=== PATIENT | female | born 1935 | race Caucasian/White ===

== ENCOUNTER 2016-12-24 06:17 | Inpatient (IN) ==
--- NOTE | 2016-12-23 21:38 | Discharge Summary ---
<Ludy Saul - Last Filed: 12/23/16 21:33> Date of Encounter: 12/23/16 - Discharge Diagnosis (1) Rotator cuff arthropathy Priority: Primary Status: Acute Qualifiers: Laterality: left Qualified Code(s): M12.812 - Other specific arthropathies , not elsewhere classified, left shoulder (2) CHF (congestive heart failure) Priority: Secondary Status: Chronic Qualifiers: Congestive heart failure type: unspecified congestive heart failure type Congestive heart failure chronicity: unspecified congestive heart failure chronicity Qualified Code(s): I50.9 - Heart failure, unspecified (3) Anxiety Priority: Secondary Status: Chronic (4) COPD (chronic obstructive pulmonary disease) Priority: Secondary Status: Chronic Qualifiers: COPD type: unspecified COPD Qualified Code(s): J44.9 - Chronic obstructive pulmonary disease, unspecified (5) UTI (urinary tract infection) Priority: Secondary Status: Chronic Qualifiers: Urinary tract infection type: site unspecified Hematuria presence: without hematuria Qualified Code(s): N39.0 - Urinary tract infection, site not specified (6) Chronic hyponatremia Priority: Secondary Status: Chronic (7) Chronic atrial fibrillation Priority: Secondary Status: Chronic (8) Chronic hepatitis Priority: Secondary Status: Chronic (9) KATHE (obstructive sleep apnea) Priority: Secondary Status: Chronic Comments: Wears O2 at night. (10) Chronic pain Priority: Secondary Status: Chronic Comments: Will continue [place] 10/325 Q 6 hours #120 - LD 11/29/16 Qualifiers: Chronic pain type: other chronic pain Qualified Code(s): G89.29 - Other chronic pain - Discharge Medications Home Medications: Aspirin [Adult Low Dose Aspirin EC] 81 mg PO DAILY 07/30/15 [History] Cholecalciferol (Vitamin D3) [Vitamin D3] 2,000 unit PO DAILY 07/30/15 [History] Diazepam [Valium] 2 mg PO HS 07/30/15 [History] Metoprolol [Lopressor] 50 mg PO BID 07/30/15 [History] Omeprazole [PriLOSEC] 20 mg PO BID 07/30/15 [History] Oxybutynin Chloride [Ditropan Xl] 10 mg PO DAILY 07/30/15 [History] Potassium Chloride [Klor-Con Sprinkle] 10 meq PO BID 07/30/15 [History] Warfarin [Coumadin] 4 mg PO Q48H 07/30/15 [History] Docosahexanoic Acid/Epa [Fish Oil Concentrate Softgel] 1 each PO DAILY 08/31/15 [History] Docusate Sodium [Stool Softener] 100 mg PO DAILY 08/31/15 [History] HYDROcodone/Acet 10/325 mg [[place] 10-325 mg] 1 each PO Q6H PRN 08/31/15 [History ] Losartan/Hydrochlorothiazide [Hyzaar 100-12.5 Tablet] 1 each PO DAILY 08/31/15 [ History] Milk Thistle Seed Extract [Milk Thistle] 1,000 mg PO DAILY 08/31/15 [History] Multivitamin [Multivitamins] 1 each PO DAILY 08/31/15 [History] Psyllium Husk [Fiber] 0.52 gm PO BID 08/31/15 [History] Albuterol Sulfate [Albuterol Inhaler] 2 puff IH Q4HR PRN 10/25/16 [History] Oxygen 2 l NS AD 10/25/16 [History] Lidocaine Patch [Lidoderm 5% patch] 1 each TP DAILY #30 adh..patch 12/23/16 [Rx] Furosemide [Lasix] 20 mg PO DAILY 12/24/16 [History] Lactobacillus Acidophilus [Acidophilus Probiotic] 1 mg PO DAILY 12/24/16 [ History] Warfarin [Coumadin] 3.5 mg PO Q48H 12/24/16 [History] Allergies/Adverse Reactions: Allergies Barbiturates Allergy (Verified 10/25/16 07:32) Rash Primary care physician: Yahir Self MD - Patient Status Disposition: Home, Self-Care Condition: Good - Discharge Instructions Follow Up With: Yahir Self MD [Primary Care Provider] - - Hospital Course Hospital course: Ms. Serra is a 81 year old female - Time Spent with Patient Total time spent providing and/or coordinating discharge services: <Juanito Mayen - Last Filed: 12/25/16 06:38> Date of Encounter: 12/25/16 Time of Encounter: 06:37 - Discharge Diagnosis (1) Rotator cuff arthropathy Priority: Primary Status: Acute Qualifiers: Laterality: left Qualified Code(s): M12.812 - Other specific arthropathies , not elsewhere classified, left shoulder (2) CHF (congestive heart failure) Priority: Secondary Status: Chronic Comments: Unknown type Qualifiers: Congestive heart failure type: unspecified congestive heart failure type Congestive heart failure chronicity: unspecified congestive heart failure chronicity Qualified Code(s): I50.9 - Heart failure, unspecified (3) Anxiety Priority: Secondary Status: Chronic (4) COPD (chronic obstructive pulmonary disease) Priority: Secondary Status: Chronic Qualifiers: COPD type: unspecified COPD Qualified Code(s): J44.9 - Chronic obstructive pulmonary disease, unspecified (5) UTI (urinary tract infection) Priority: Secondary Status: Chronic Qualifiers: Urinary tract infection type: site unspecified Hematuria presence: without hematuria Qualified Code(s): N39.0 - Urinary tract infection, site not specified (6) Chronic hyponatremia Priority: Secondary Status: Chronic (7) Chronic atrial fibrillation Priority: Secondary Status: Chronic (8) Chronic hepatitis Priority: Secondary Status: Chronic (9) KATHE (obstructive sleep apnea) Priority: Secondary Status: Chronic (10) Chronic pain Priority: Secondary Status: Chronic Qualifiers: Chronic pain type: other chronic pain Qualified Code(s): G89.29 - Other chronic pain Primary care physician: Yahir Self MD - Patient Status Overall status at discharge: patient is progressing back to baseline - Hospital Course Hospital course: Ms. Serra is a 81 year old female The patient had an uneventful postoperative course. They received antibiotics and physical therapy and were discharged in stable condition. There will follow -up in the office in 2 weeks. - Time Spent with Patient Total time spent providing and/or coordinating discharge services:
[2016-12-24] MEDS ORDERED: CeFAZolin Pre 2,000 MG/100 ML 2,000 MG/100 ML BAG IVPB ONE (06:33)
[2016-12-24] MEDS ORDERED: Famotidine 20 MG/2 ML VIAL IVP ONE (06:34)
--- NOTE | 2016-12-24 06:34 | History & Physical Report ---
Date of Encounter: 12/24/16 Time of Encounter: 06:34 24 Hour HP Update - Instructions Instructions: If the History and Physical is less than 30 days old and was completed prior to A.M. admission and or procedure and has NOT been updated on calendar day of procedure please complete this update prior to performing procedure. - Update Patient reports changes in Medical Condition: No Changes in examination, assessment, or condition: No Changes in Medication: No Preop tests/diagnostics Reviewed: Yes Surgery Remains Indicated: Yes Consent for Planned Operative Procedure(s) Verified: Yes - Pre-Operative Checklist Preoperative Checklist Indicated: No Prophylactic Antibiotic Ordered: Yes Is VTE Prophylaxis Indicated?: Yes
[2016-12-24] MEDS ORDERED: Ringers Solution, Lactated 1,000 ML IVC SCH (06:45)
[2016-12-24] MEDS ORDERED: Dexamethasone 4 MG/ML VIAL ONE ×2 (07:09→07:19)
[2016-12-24] MEDS ORDERED: *HR* Propofol 200 MG/20 ML VIAL IVP ONE (07:09)
[2016-12-24] MEDS ORDERED: *HR* Midazolam HCl 2 MG/2 ML VIAL ONE (07:09)
[2016-12-24] MEDS ORDERED: *HR* FentaNYL (PF) 100 MCG/2 ML VIAL ONE (07:09)
[2016-12-24] MEDS ORDERED: Ondansetron 4 MG/2 ML VIAL ONE (07:09)
[2016-12-24] MEDS ORDERED: Lidocaine -MPF 2% 2 ML VIAL ONE (07:10)
[2016-12-24] MEDS ORDERED: Gabapentin 300 MG CAPSULE PO ONE (07:11)
[2016-12-24] MEDS ORDERED: *HR* Phenylephrine 10 MG/ML VIAL ONE (07:11)
[2016-12-24] MEDS ORDERED: ROPIVACAINE HCL/PF 0.5% 30 ML VIAL ONE (07:17)
[2016-12-24] MEDS ORDERED: Bupivacaine/Clonidine Syringe 1 EACH SYRINGE ONE (07:18)
--- NOTE | 2016-12-24 07:34 | Anesthesia Evaluation PreOp ---
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 History: Denies Any Significant HX Other Medical History: Denies Any Significant HX Anesthesia History: No Prior Anesthetic Complications : No Alcohol Use: unknown Drug use: none Medications and Allergies Aspirin [Adult Low Dose Aspirin EC] 81 mg PO DAILY 07/30/15 [History] Cholecalciferol (Vitamin D3) [Vitamin D3] 2,000 unit PO DAILY 07/30/15 [History] Diazepam [Valium] 2 mg PO HS 07/30/15 [History] Metoprolol [Lopressor] 50 mg PO BID 07/30/15 [History] Omeprazole [PriLOSEC] 20 mg PO BID 07/30/15 [History] Oxybutynin Chloride [Ditropan Xl] 10 mg PO DAILY 07/30/15 [History] Potassium Chloride [Klor-Con Sprinkle] 10 meq PO BID 07/30/15 [History] Warfarin [Coumadin] 4 mg PO Q48H 07/30/15 [History] Docosahexanoic Acid/Epa [Fish Oil Concentrate Softgel] 1 each PO DAILY 08/31/15 [History] Docusate Sodium [Stool Softener] 100 mg PO DAILY 08/31/15 [History] HYDROcodone/Acet 10/325 mg [Home 10-325 mg] 1 each PO Q6H PRN 08/31/15 [History ] Losartan/Hydrochlorothiazide [Hyzaar 100-12.5 Tablet] 1 each PO DAILY 08/31/15 [ History] Milk Thistle Seed Extract [Milk Thistle] 1,000 mg PO DAILY 08/31/15 [History] Multivitamin [Multivitamins] 1 each PO DAILY 08/31/15 [History] Psyllium Husk [Fiber] 0.52 gm PO BID 08/31/15 [History] Warfarin [Coumadin] 3 mg PO Q48H 08/31/15 [History] Albuterol Sulfate [Albuterol Inhaler] 2 puff IH Q4HR PRN 10/25/16 [History] Oxygen 2 l NS AD 10/25/16 [History] Lidocaine Patch [Lidoderm 5% patch] 1 each TP DAILY #30 adh..patch 12/23/16 [Rx] Furosemide [Lasix] 20 mg PO DAILY 12/24/16 [History] Lactobacillus Acidophilus [Acidophilus Probiotic] 1 mg PO DAILY 12/24/16 [ History] Allergies Barbiturates Allergy (Verified 10/25/16 07:32) Rash - Meds/Allergy Pre-op Review Medications Reviewed: Yes Allergies Reviewed: Yes Beta Blockers on Current Med List: Yes (Took Metoprolol today 0430) Anesthesia Results - Labs Laboratory Tests 12/12/16 12/12/16 09:11 09:11 Hgb 13.4 Hct 39.5 Plt Count 181 Sodium 130 L Potassium 3.8 BUN 16 Creatinine 0.85 - Imaging EKG: report reviewed Additional studies: Stress Test Negative EF 66% Anesthesia Exam Height: 5'6 Weight: 170 lbs NPO (# of Hours): MN Pain Scale: 0 - HEENT Pupil (Motor): Pupils equal, EOMI Mallampati: III Teeth: Normal Oral Opening: Less than or equal to 3 - LEARNING CONSULTANT LOC: Oriented LEARNING CONSULTANT Motor: Normal RUE, Normal LUE, Normal RLE, Normal LLE, Normal Face LEARNING CONSULTANT Sensory: Normal: RUE, LUE, RLE, LLE, Face - Cardiac Rhythm: Regular Murmur: None JVD: No Carotid Bruit: No - Pulmonary Breath Sounds: bilateral Clear Respiratory Effort: Symmetrical Anesthesia Assess/Plan ASA Score: 4 (HTN CAD AFib COPD on home oxygen) Modified [place] Scale for Level of Consciousness: Cooperative, oriented, and tranquil Anesthetic Plan: General, Regional Monitoring Plan: Standard Monitors Recovery Plan: PACU (Discussed GA and RA, agrees to proceed)
--- NOTE | 2016-12-24 08:31 | Anesthesia Procedures ---
Date of Encounter: 12/24/16 Time of Encounter: 07:55 Procedures: Anesthesia - Nerve Block Procedure Date: 12/24/16 Time: 07:55 Allergies/Adv Reactions: Allergies Allergy/AdvReac Type Severity Reaction Status Date / Time Barbiturates Allergy Rash Verified 10/25/16 07:32 Pre-op Diagnosis: Left Shoulder Arthritis Surgical Procedure: Left Reverse Shoulder Replacement Checklist: Correct Patient Identifier, Correct procedure, History checked Correct side: Left Blood Thinner: Yes Monitor Applied: EKG, BP, Pulse Oximetry Supplemental Oxygen via Nasal Cannula (L/min): 2 Sedation: Versed (mg): 1 Sedation: Fentanyl (mcg): 25 Indication: Post Op Analgesia Pre-op Neuro Deficits: No Block Type: Supraclavicular, Other (ICB, SCP) Catheter placed: No Sterile Technique: Yes Ultrasound used: Yes Anatomy identified: Yes Visual spread of Local: Yes Neuro Stimulation: No Blood on Needle Aspiration: No Smooth Injection of Local: Yes Pain with Injection of Local: No Prep: Chlorhexadine Needle: 22 x 50 mm Stimuplex Local: 0.25% Bupivicaine w/Clonidine 20 mcg/cc (5mL Each SCP and ICB), Ropivacaine (0.5% 30mL Supra), Other (Decadron 8mg) Volume (cc): 40 Number of Attempts: 1 Complications: None/effective block Vitals: VSS throughout. See nursing documentation. Comments: Verbal order Dr Mayen for post op pain management. Patient tolerated procedure well.
[2016-12-24] MEDS ORDERED: Naloxone 0.4 MG/ML INJ IVP PRN ×2 (08:42→10:38)
[2016-12-24] MEDS ORDERED: *HR* Morphine 2 MG/ML SYRINGE IVP PRN (08:42)
[2016-12-24] MEDS ORDERED: Ondansetron 4 MG/2 ML VIAL IVP PRN ×2 (08:42→10:38)
--- NOTE | 2016-12-24 08:49 | Orthopedic Operative Note ---
Date of procedure: 12/24/16 Pre-op diagnosis: Left shoulder cuff tear arthropathy Post-op diagnosis: same Procedure: Procedure: Left Total Shoulder Replacment Reverse, Estimated blood loss: 100 cc Hardware: Metal and polyethylene replacement: Arthrex small glenoid baseplate, 2 4.5 screws. 1 6.5 screw, 6+4 glenosphere, 7 humeral stem, poly insert 3, 9 metal Exam Under anesthesia: Full motion no instability Procedural Notes: Irreparable tear supraspinatus tendon, grade 3 arthritic changes humeral head glenoid socket. Operative procedure: The patient was brought to the operating room and placed on the operating room table. After general anesthesia was administered the operative shoulder was examined. Findings were noted. The patient was placed in the modified beachchair position. All pressure points were padded appropriately. And the head was stabilized in the neutral position. The operative extremity was prepped and draped in the sterile surgical fashion. The patient received IV antibiotics prior to skin incision. A standard deltopectoral approach was made to the operative shoulder. Incision was made to the skin and subcutaneous tissue,hemo stasis was obtained with Bovie cautery. Using careful blunt dissection the cephalic vein was identified and mobilized medially. The deltopectoral interval was developed and the clavipectoral fascia was incised. The subscap was released off the lesser tuberosity and tagged with #2 FiberWire suture it was irreparable. The humerus was dislocated patient noted to have irreparable tear supraspinatus tendon, and the humeral cut was made along the anatomic neck. Patient noted to have grade 3 arthritic changes humeral head acetabular socket. Anterior and posterior Bankart retractors were placed to expose the glenoid. The glenoid guide was seated and the centering hole was made. It was reamed with the appropriate reamer. The small baseplate was seated and secured with (2) 4.5 screws and one 6.5 screw. The baseplate was irrigated and dried and the 36+4 Glenosphere was seated and secured with the Arnold taper. The Arnold taper was tested and found to be secure the humerus was redislocated and prepared with the diaphyseal reamers, followed by a broaching process up to the appropriate size 7 in the patient's anatomic version. The metaphyseal reamer was then utilized. Trial reduction found the shoulder to be relocatable. Trial components were removed. The appropriate 7 stem was impacted in place in the patient's anatomic version. Trial reduction found the shoulder to be relocatable and stable with the appropriate 6 metal 3 Shira Trial component was removed and the real 6 metal 3 Shira was seated and secured the shoulder was reduced. The shoulder had excellent motion and excellent stability and no evidence of dislocation. The deep tissue was irrigated with pulse irrigation. The deltopectoral interval was closed with a running #1 PDS suture, subcutaneous tissue was irrigated and closed with 0 PDS suture, the skin was closed with Dermabond. The patient was placed in a sterile dressing, abduction brace and extubated. The patient was then transferred to the recovery room in stable condition. Anesthesia: ANGELI Surgeon: Juanito Mayen Family Member Caretaker: Ludy Saul Condition: stable Disposition: PACU
--- NOTE | 2016-12-24 09:35 | Anesthesia Evaluation Post Op ---
Date of Encounter: 12/24/16 Time of Encounter: 09:40 - Vital Signs Vital Signs: Vital Signs/O2 Sat/Glucose, Most Current Temp Pulse Resp BP Pulse Ox 12/24/16 09:33 97.6 F 84 18 130/77 100 12/24/16 09:12 79 18 93/62 98 12/24/16 09:02 97.9 F 81 18 91/59 95 12/24/16 08:01 82 16 127/73 98 12/24/16 06:38 97.8 F 92 18 103/66 96 - Lungs Lungs: Clear Ascult./Percussion - Airway Airway: Non-obstructed - Cardiovascular Regular Rate - Mental Status Mental Status: Alert & Oriented, Answers Appropriately - Pain Pain Scale: 0 - Nausea Vomiting Nausea Vomiting: Not Present - Hydration Hydration: Ice chips - Discharge PostOp Status: Transfer Patient to floor
[2016-12-24 09:39] LABS: Hematocrit 32.2 % (35.3-44.9); Hemoglobin 10.9 g/dL (11.5-15.4)
[2016-12-24] MEDS ORDERED: Temazepam 15 MG CAPSULE PO PRN (10:38)
[2016-12-24] MEDS ORDERED: Aspirin Enteric Coated 81 MG Tablet PO SCH (10:38)
[2016-12-24] MEDS ORDERED: *HR* HYDROmorphone (PF) 1 MG/ML SYRINGE IVP PRN (10:38)
[2016-12-24] MEDS ORDERED: Sennosides 8.6 MG TABLET PO PRN (10:38)
[2016-12-24] MEDS ORDERED: ceFAZolin 2,000 MG in D5% in Water 100 ML IVPB SCH (10:38)
[2016-12-24] MEDS ORDERED: DOCOSAHEXANOIC ACID PO SCH (10:38)
[2016-12-24] MEDS ORDERED: EPA PO SCH (10:38)
[2016-12-24] MEDS ORDERED: Multivit/Ca/Min/Fe/FA 1 TAB TABLET PO SCH (10:38)
[2016-12-24] MEDS ORDERED: Lactobacillus 1 EACH CAP.SPRINK PO SCH (10:38)
[2016-12-24] MEDS ORDERED: NON-FORMULARY MEDICATION 1 EACH EACH (Oxygen [Oxygen] 2 L) NS SCH (10:38)
[2016-12-24] MEDS ORDERED: *HR* OxyCODONE Immed Rel 5 MG TABLET PO PRN ×2 (10:38)
[2016-12-24] MEDS ORDERED: MOM Conc 10 ML UD.LIQ PO PRN (10:38)
[2016-12-24] MEDS ORDERED: NON-FORMULARY MEDICATION 1 EACH EACH (Losartan/Hydrochlorothiazide [Hyzaar 100-12.5 Tablet PO SCH (10:38)
[2016-12-24] MEDS ORDERED: Furosemide 20 MG TABLET PO SCH (10:38)
[2016-12-24] MEDS ORDERED: Cholecalciferol (D-3) 1,000 UNIT TABLET PO SCH (10:38)
[2016-12-24] MEDS ORDERED: MILK THISTLE SEED EXTRACT PO SCH (10:38)
[2016-12-24] MEDS ORDERED: hydroCHLOROthiazide 25 MG TABLET PO SCH (11:05)
[2016-12-24] MEDS: Ringers Solution, Lactated 1,000 ML IVC SCH ×2 (12:40→23:26)
[2016-12-24] MEDS: Psyllium 1 PACKET POWD.PACK PO SCH ×2 (14:34→20:57)
[2016-12-24] MEDS: ceFAZolin 2,000 MG in D5% in Water 100 ML IVPB SCH ×2 (16:01→23:25)
[2016-12-24] MEDS ORDERED: *HR* Warfarin 1 MG TABLET PO SCH (18:00)
[2016-12-24] MEDS ORDERED: *HR* Enoxaparin 30 MG/0.3 ML SYRINGE SQ SCH (18:00)
[2016-12-24] MEDS: *HR* Enoxaparin 30 MG/0.3 ML SYRINGE SQ SCH (18:20)
[2016-12-24] MEDS ORDERED: diazePAM 2 MG TABLET PO SCH (21:00)
[2016-12-25] MEDS: *HR* Enoxaparin 30 MG/0.3 ML SYRINGE SQ SCH (05:20)
[2016-12-25 06:02] LABS: Hematocrit 33.9 % (35.3-44.9); Hemoglobin 11.7 g/dL (11.5-15.4)
--- NOTE | 2016-12-25 06:39 | Orthopedics Progress Note ---
Date of Encounter: 12/25/16 Time of Encounter: 06:38 - Assessment and Plan (1) Rotator cuff arthropathy Current Visit: Yes Status: Acute Qualifiers: Laterality: left Qualified Code(s): M12.812 - Other specific arthropathies , not elsewhere classified, left shoulder (2) CHF (congestive heart failure) Current Visit: Yes Status: Chronic Qualifiers: Congestive heart failure type: unspecified congestive heart failure type Congestive heart failure chronicity: unspecified congestive heart failure chronicity Qualified Code(s): I50.9 - Heart failure, unspecified (3) Anxiety Current Visit: Yes Status: Chronic (4) COPD (chronic obstructive pulmonary disease) Current Visit: Yes Status: Chronic Qualifiers: COPD type: unspecified COPD Qualified Code(s): J44.9 - Chronic obstructive pulmonary disease, unspecified (5) UTI (urinary tract infection) Current Visit: Yes Status: Chronic Qualifiers: Urinary tract infection type: site unspecified Hematuria presence: without hematuria Qualified Code(s): N39.0 - Urinary tract infection, site not specified (6) Chronic hyponatremia Current Visit: Yes Status: Chronic (7) Chronic atrial fibrillation Current Visit: Yes Status: Chronic (8) Chronic hepatitis Current Visit: Yes Status: Chronic (9) KATHE (obstructive sleep apnea) Current Visit: Yes Status: Chronic (10) Chronic pain Current Visit: Yes Status: Chronic Qualifiers: Chronic pain type: other chronic pain Qualified Code(s): G89.29 - Other chronic pain Subjective Interval history: Patient was seen this morning doing well without complaints. Afebrile vital signs stable. Operative extremity: Neurovascularly intact Dressing clean dry and intact Calves nontender Assessment and plan: Continue with postoperative care Hematocrit 33.9 discharged today Objective Vital signs: Vital Signs Temp Pulse Resp BP Pulse Ox 12/25/16 03:00 97.9 F 86 16 123/69 98 12/24/16 23:45 97.1 F L 90 16 136/67 98 12/24/16 21:00 97.1 F L 89 16 119/78 12/24/16 19:24 97.0 F L 12/24/16 18:46 80 16 106/68 96 12/24/16 16:06 85 15 144/87 97 12/24/16 11:59 97.5 F L 80 18 106/71 100 12/24/16 10:48 96.8 F L 81 16 116/74 100 12/24/16 10:24 100 12/24/16 10:18 96.8 F L 81 15 115/77 100 12/24/16 09:50 97.6 F 80 14 115/77 96 12/24/16 09:32 97.6 F 80 18 128/83 100 12/24/16 09:22 84 18 130/77 100 12/24/16 09:12 79 18 93/62 98 12/24/16 09:02 97.9 F 81 18 91/59 95 12/24/16 08:01 82 16 127/73 98 Intake and Output 12/24/16 12/24/16 12/25/16 15:59 23:59 07:59 Intake Total 0 / 0 250 / 250 150 / 150 Output Total 100 / 100 Balance -100 / -100 250 / 250 150 / 150 Intake: IV Fluids 100 / 100 100 / 100 Ancef 2,000 MG In 100 / 100 100 / 100 Dextrose 5% 100 ML @ 200 mls/hr IVPB Q8HR [facility] Rx#: [id number] Oral 0 / 0 150 / 150 50 / 50 Output: Estimated Blood Loss 100 / 100 Other: # Voids 1 1 Weight 53.07 kg - Labs CBC & BMP: 12/25/16 05:19 Labs: Abnormal lab results Hct 33.9 % (35.3-44.9) L 12/25/16 05:19 - VTE Documentation of Mechanical Device: Venous foot pump, device Consult Discharge Plan - Plan Referrals: Yahir Self MD [Primary Care Provider] -
[2016-12-25 06:54] VITALS: BP 143/82
[2016-12-25] MEDS ORDERED: *HR* Warfarin 4 MG TABLET PO SCH (18:00)
== END 2016-12-25 10:00 | disposition home or self-care (01) | DRG 483 ==
LOC: SAMDAY 06:17 → 3NENU 10:28
PROVIDERS: ADMIT Orthopaedic Surgery; ATTEND Orthopaedic Surgery

== ENCOUNTER 2017-09-10 19:49 | Inpatient (IN) ==
[2017-09-11] MEDS ORDERED: Naloxone 0.4 MG/ML INJ IVP PRN (00:29)
[2017-09-11] MEDS ORDERED: Acetaminophen 325 MG TABLET PO PRN (00:29)
[2017-09-11] MEDS ORDERED: 0.9 % Sodium Chloride 1,000 ML IVC SCH (00:30)
--- NOTE | 2017-09-11 00:48 | Internal Med History&Physical ---
Date of Encounter: 09/11/17 Time of Encounter: 00:05 Assessment and Plan (1) Closed sacral fracture Current visit: Yes Status: Acute 1. Per history, non-traumatic. 2. Consult orthopedics. 3. Pain control with oral narcotics for severe pain. 4. Patient will need PT/OT evaluations once cleared by orthopedics to participate. Qualifiers: Encounter type: initial encounter Zone of sacrum fracture: unspecified portion of sacrum Qualified Code(s): S32.10XA - Unspecified fracture of sacrum , initial encounter for closed fracture (2) Atrial fibrillation Current visit: Yes Status: Chronic 1. Continue home meds as appropriate. 2. Hold Coumadin tonight and dose per pharmacy and PT/INR. 3. Will place on telemetry and monitor rhythm and rate. Qualifiers: Atrial fibrillation type: chronic Qualified Code(s): I48.2 - Chronic atrial fibrillation (3) Hypertension Current visit: Yes Status: Chronic 1. Continue home meds as appropriate. 2. Monitor BP and adjust medication as necessary. Qualifiers: Hypertension type: essential hypertension Qualified Code(s): I10 - Essential (primary) hypertension (4) DVT prophylaxis Current visit: Yes Status: Acute 1. Patient on Coumadin -- currently therapeutic. Internal Medicine - H&P: HPI Chief complaint: pelvic/hip pain Admitted From: Hospital to Hospital Transfer Plans for Post Hospital Care: Home History of present illness: Ms. Serra is an 82 year old female who presents in transfer from [facility] ER for intractable pelvic and hip pain. She had imaging earlier today as ordered by her orthopedic physician. Imaging revealed bilateral sacral fracture. She was advised to go the ER for pain control and admission to the hospitalist service. I saw patient upon arrival from [facility]. She is lying in bed comfortably but having significant pain with any movement of her legs. She states she denies any recent trauma or injury. However, she noted sudden onset of pain about 2 weeks ago when she was trying to get out of bed. She did not fall or injure herself. She states the pain was sharp and sudden in onset. Since then , she has been unable to bear weight and ambulate without significant and severe pain. She denies any numbness, but she has complained of weakness due to decreased use of her legs and back pain. She received a call from Dr. Deluna who recommended she go to ER for stabilization of pain and transfer to [facility]. Past Med Surg Social Fam HX - Past Medical History Attestation: Yes The following information was validated with the patient. Source: patient, old records reviewed Medical history: atrial fibrillation, CHF, hepatitis, hypertension Psychiatric history: no psych history - Past Surgical History Surgical History: appendectomy, hysterectomy, pacemaker/AICD, other - Social History Smoking Status: Former smoker Smokeless Tobacco Status: No Alcohol use: unknown Drug use: none Current living situation: Home, With Family Activity Level: Independent ambulation Recent Out of Country Travel Within the Last 8 Weeks: No - Family History Mother Adopted: No Family Member Ethnicity: Non- Living Status: Hx Family Cardiac Disorders: Yes Internal Medicine - H&P: Meds Aspirin [Adult Low Dose Aspirin EC] 81 mg PO DAILY 07/30/15 [History] Cholecalciferol (Vitamin D3) [Vitamin D3] 2,000 unit PO DAILY 07/30/15 [History] Diazepam [Valium] 2 mg PO HS 07/30/15 [History] Metoprolol [Lopressor] 50 mg PO BID 07/30/15 [History] Omeprazole [PriLOSEC] 20 mg PO BID 07/30/15 [History] Oxybutynin Chloride [Ditropan Xl] 10 mg PO DAILY 07/30/15 [History] Potassium Chloride [Klor-Con Sprinkle] 10 meq PO BID 07/30/15 [History] Warfarin [Coumadin] 4 mg PO Q48H 07/30/15 [History] Docosahexanoic Acid/Epa [Fish Oil Concentrate Softgel] 1 each PO DAILY 08/31/15 [History] HYDROcodone/Acet 10/325 mg [[place] 10-325 mg] 1 each PO Q6H PRN 08/31/15 [History ] Losartan/Hydrochlorothiazide [Hyzaar 100-12.5 Tablet] 1 each PO DAILY 08/31/15 [ History] Milk Thistle Seed Extract [Milk Thistle] 1,000 mg PO DAILY 08/31/15 [History] Multivitamin [Multivitamins] 1 each PO DAILY 08/31/15 [History] Psyllium Husk [Fiber] 0.52 gm PO BID 08/31/15 [History] Albuterol Sulfate [Albuterol Inhaler] 2 puff IH Q4HR PRN 10/25/16 [History] Oxygen 2 l NS AD PRN 10/25/16 [History] Lidocaine Patch [Lidoderm 5% patch] 1 each TP DAILY #30 adh..patch 12/23/16 [Rx] Lactobacillus Acidophilus [Acidophilus Probiotic] 1 mg PO DAILY 12/24/16 [ History] Warfarin [Coumadin] 3.2 mg PO Q48H 12/24/16 [History] 3 Allergy/AdvReac Type Severity Reaction Status Date / Time Barbiturates Allergy Rash Verified 09/10/17 19:21 - Constitutional Constitutional: no chills, no fever(s) - EENT Eyes: no blurry vision, no change in vision Ears: no ear pain, no tinnitus Nose, mouth and throat: no nasal congestion, no sinus pressure, no sore throat - Cardiovascular Cardiovascular ROS IM: no chest pain, no dyspnea, no dyspnea on exertion, no edema, no orthopnea, no syncope - Respiratory Respiratory: no cough, no hemoptysis, no chest congestion - Gastrointestinal Gastrointestinal: no abdominal pain, no hematemesis, no hematochezia, no melena , no nausea, no vomiting - Genitourinary Genitourinary: no dysuria, no flank pain, no hematuria - Musculoskeletal Musculoskeletal ROS IM: arthralgias, back pain, limited range of motion Additional comments: severe low back and pelvic pain - Integumentary Integumentary IM: no rash, no jaundice - Neurological Neurological ROS: no disequilibrium, no dizziness, no focal weakness, no frequent falls - Psychiatric Psychiatric: no anxiety, no depression - Endocrine Endocrine IM: no polydipsia, no polyuria - Hematologic/Lymphatic Hematologic/Lymphatic: easy bruising - Allergic/Immunologic Allergic/Immunologic: no wheezing, no GI upset with certain foods - Constitutional Vitals: Temp Pulse Resp BP Pulse Ox 98.1 F 87 18 165/91 97 09/10/17 22:28 09/10/17 22:28 09/10/17 22:28 09/10/17 22:28 09/10/17 22:28 General appearance: Present: cooperative, mild distress, A&O X 3, pleasant - Head Head exam: Present: atraumatic, normal inspection - Expanded Head Exam Head exam expanded: Absent: abrasion, contusion, general tenderness - Eye Eye exam: Present: EOMI, PERRL. Absent: scleral icterus Pupils: Present: normal accommodation - ENT ENT exam: Present: mucous membranes dry, normal exam - Neck Neck exam general surgery: Present: full ROM, supple. Absent: tenderness, nuchal rigidity - Respiratory Respiratory exam: Present: CTAB. Absent: chest wall tenderness, rales, rhonchi , wheezes - Cardiovascular Cardiovascular exam: Present: RRR, +S1, +S2. Absent: diastolic murmur, systolic murmur - GI/Abdominal GI/Abdominal exam: Present: normal bowel sounds, soft. Absent: guarding, hepatomegaly, mass, rebound, tenderness - Extremities Exam Extremities exam: Present: normal capillary refill, warm, radial pulses palpable and symmetrical. Absent: calf tenderness, joint swelling - Back Exam Back exam: Absent: CVA tenderness (L), CVA tenderness (R) - Neurological Exam Neurological exam: Present: alert, CN II-XII intact, oriented X3, no focal deficits Additional comments: normal sensation in feet bilaterally - Psychiatric Psychiatric exam: Present: normal affect, normal mood - Skin Skin exam: Present: dry, warm Internal Med - H&P Results - Labs Labs: I reviewed her labs from [facility] and they include the following: WBC 10.5 Hemoglobin 14.8 Hematocrit 43.0 Platelet Count 228 PT 47.7 INR 4.3 Sodium 130 Potassium 3.6 Chloride 91 Carbon dioxide 27 BUN 12 Creatinine 0.[address] report reviewed confirming bilateral sacral fractures. - VTE Reasons for not Prescribing Prophylaxis: Not indicated-Anticoagulated or INR therapeutic
[2017-09-11] MEDS: *HR* HYDROcodone/Acet 10/325 mg TABLET PO PRN ×3 (01:46→17:23)
[2017-09-11] MEDS: *HR* OxyCODONE Immed Rel 5 MG TABLET PO PRN (05:11)
[2017-09-11 06:18] LABS: Basophils # 0.1 K/mcL (0.0-0.2); Basophils % 0.6 %; Eosinophils # 0.1 K/mcL (0.0-0.6); Eosinophils % 1.6 %; Hematocrit 40.7 % (35.3-44.9); Hemoglobin 13.5 g/dL (11.5-15.4); Immature Granulocytes % 0.5 % (0-4); Lymphocytes # 2.6 K/mcL (0.6-4.6); Lymphocytes % 29.1 %; Mean Corpuscular HGB Conc 33.2 g/dL (31.6-35.5); Mean Corpuscular Hemoglobin 30.5 pg (28.0-33.3); Mean Corpuscular Volume 92.1 fL (83.0-100.0); Mean Platelet Volume 9.4 fL (9.4-12.4); Monocytes # 1.2 K/mcL (0.0-1.3); Monocytes % 13.1 %; Neutrophils # 4.8 K/mcL (1.6-8.9); Platelet Count 178 K/mcL (140-400); Red Blood Count 4.42 M/mcL (3.82-4.97); Red Cell Distribution Width 12.1 % (11.5-14.5); Segmented Neutrophils % 55.1 %
[2017-09-11 06:34] LABS: Alanine Aminotransferase 24 Units/L (7-52); Albumin 3.1 g/dL (3.5-5.7); Albumin/Globulin Ratio 1.2 (1.1-2.2); Alkaline Phosphatase 93 Units/L (34-104); Aspartate Amino Transferase 47 Units/L (13-39); BUN/Creatinine Ratio 24 (6-26); Bilirubin,Total 1.5 mg/dL (0.3-1.0); Blood Urea Nitrogen 13 mg/dL (8-23); Calcium 8.5 mg/dL (8.6-10.3); Carbon Dioxide 30 mEq/L (23-29); Chloride 98 mEq/L (98-107); Globulin 2.6 g/dL (2.4-3.5); Glucose 94 mg/dL (70-105); Magnesium 1.7 mg/dL (1.6-2.6); Osmolality,Calculated 274 (280-300); Potassium 3.4 mEq/L (3.5-5.1); Sodium 132 mEq/L (136-145); Total Protein 5.7 g/dL (6.4-8.9); eGFR For African Americans > 60 (> 60); eGFR For Non-African Americans > 60 (> 60)
[2017-09-11 06:39] LABS: INR 3.6; Prothrombin Time 39.3 Seconds (9.4-12.1)
[2017-09-11] MEDS: Cholecalciferol (D-3) 1,000 UNIT TABLET PO SCH (07:45)
[2017-09-11] MEDS: Lactobacillus 1 EACH CAP.SPRINK PO SCH (07:45)
[2017-09-11] MEDS: Multivit/Ca/Min/Fe/FA 1 TAB TABLET PO SCH (07:45)
[2017-09-11] MEDS: Aspirin Enteric Coated 81 MG Tablet PO SCH (07:45)
[2017-09-11] MEDS: 0.9 % Sodium Chloride 1,000 ML IVC SCH (15:26)
--- NOTE | 2017-09-11 17:50 | Orthopedic Consult Note ---
Date of Encounter: 09/11/17 Time of Encounter: 17:43 Assessment and Plan (1) Muscle strain of right upper arm Current Visit: Yes Status: Acute Qualifiers: Encounter type: initial encounter Qualified Code(s): S46.911A - Strain of unspecified muscle, fascia and tendon at shoulder and upper arm level, right arm , initial encounter (2) Closed sacral fracture Current Visit: Yes Status: Acute Discussed with Dr. Blood. Patient to weight bear as tolerated with walker and as per therapy. PT/OT as tolerated. Pressure relief devices as needed. Will add Lidoderm patch for shoulder (likely deltoid strain) and low back as needed to help with pain control. Will keep outpatient follow up with Dr. Deluna as scheduled. Qualifiers: Encounter type: initial encounter Zone of sacrum fracture: unspecified portion of sacrum Qualified Code(s): S32.10XA - Unspecified fracture of sacrum , initial encounter for closed fracture History of Present Illness Chief complaint: bilateral sacral fractures HPI: Ms. Serra is a 82 year old female presents to [facility] for pain control for bilateral sacral fractures. She states that on 08/28/17 she went to get out of bed and "wrenched" her back. She states then she had ongoing pain since then with continuous worsening. Saw Dr. Deluna on 09/05 - she states that she discussed possible brace or cast. States that yesterday after getting CT scan she got home and had to lower herself onto the floor to prevent fall and stressed her right arm. She states that she was transported here from [facility] last night. She states that she has pain only with ambulating to the lower back and buttocks. Denies radicular type symptoms. On exam patient laying supine in bed. She is eating dinner. Alert and oriented x 3. B/l lower extremities and pelvis are nontender to palpation. No calf tenderness or warmth noted to palpation. Neurovascularly intact. Right arm palpation reveals tenderness to deltoid tendon. No lou tenderness noted. ROM limited secondary to pain. Strength 3/5 with flexion and abduction of the shoulder. Neurovascularly intact. Bareback Rider strength intact. EXAMINATION: CT OF THE LUMBAR SPINE WITHOUT CONTRAST 09/10/2017 TECHNIQUE: CT of the lumbar spine was performed without the administration of intravenous contrast. Multiplanar reformatted images are provided for review. Dose modulation, iterative reconstruction, and/or weight based adjustment of the mA/kV was utilized to reduce the radiation dose to as low as reasonably achievable. COMPARISON: 06/19/2012. HISTORY: Acute on chronic lower back pain. Subsequent evaluation. FINDINGS: BONES/ALIGNMENT: Evaluation is limited due to osteopenia. Postsurgical change from posterior fusion involving L3 through L5. There appears to be spondylolysis of L4 with grade 2 anterolisthesis of L4 on L5. Minimal grade 1 anterolisthesis at L3-L4. Large Schmorl's nodes are again seen at T12-L1 and L2-L3. No evidence of hardware loosening. No significant bony fusion is seen. Bilateral sacral fractures are identified. DEGENERATIVE CHANGES: Evaluation the spinal canal is limited due to modality as well as streak artifact from fusion hardware. There appears to be moderate bilateral neural foraminal narrowing at T12-L1. Mild bilateral neural foraminal narrowing at L1-L2 and L2-L3. Minimal spinal canal stenosis at L3-L4. Severe right and [id number] left neural foraminal narrowing at L4-L5. SOFT TISSUES/RETROPERITONEUM: No paraspinal mass. Patchy opacification is seen within the right lower lobe. CT/CT lumbar spine wo con IMPRESSION: 1. Osteopenia limits evaluation. 2. Bilateral sacral fractures identified. 3. Posterior fusion involving L3 through L5 without hardware complication. 4. 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 5. Mild patchy opacification is seen of the right lower lobe. D/ / Juanito Aguilera MD / Juanito Aguilera MD Interpreting Provider: Juanito Aguilera MD Assessment: Bilateral sacral fractures, Strain of right arm Plan: Discussed with Dr. Blood. Patient to weight bear as tolerated with walker and as per therapy. PT/OT as tolerated. Pressure relief devices as needed. Will add Lidoderm patch for shoulder (likely deltoid strain) and low back as needed to help with pain control. Will keep outpatient follow up with Dr. Deluna as scheduled. Past Med Surg Social Fam HX - Past Medical History Medical history: atrial fibrillation, CHF, hepatitis, hypertension Psychiatric history: no psych history - Past Surgical History Surgical History: appendectomy, hysterectomy, pacemaker/AICD, other - Social History Smoking Status: Former smoker Smokeless Tobacco Status: No Alcohol use: unknown Drug use: none - Family History Mother Adopted: No Family Member Ethnicity: Non- Living Status: Hx Family Cardiac Disorders: Yes Medications and Allergies Aspirin [Adult Low Dose Aspirin EC] 81 mg PO DAILY 07/30/15 [History] Cholecalciferol (Vitamin D3) [Vitamin D3] 2,000 unit PO DAILY 07/30/15 [History] Diazepam [Valium] 2 mg PO HS 07/30/15 [History] Metoprolol [Lopressor] 50 mg PO BID 07/30/15 [History] Omeprazole [PriLOSEC] 20 mg PO BID 07/30/15 [History] Oxybutynin Chloride [Ditropan Xl] 10 mg PO DAILY 07/30/15 [History] Potassium Chloride [Klor-Con Sprinkle] 10 meq PO BID 07/30/15 [History] Warfarin [Coumadin] 4 mg PO Q48H 07/30/15 [History] Docosahexanoic Acid/Epa [Fish Oil Concentrate Softgel] 1 each PO DAILY 08/31/15 [History] HYDROcodone/Acet 10/325 mg [[place] 10-325 mg] 1 each PO Q6H PRN 08/31/15 [History ] Losartan/Hydrochlorothiazide [Hyzaar 100-12.5 Tablet] 1 each PO DAILY 08/31/15 [ History] Milk Thistle Seed Extract [Milk Thistle] 1,000 mg PO DAILY 08/31/15 [History] Multivitamin [Multivitamins] 1 each PO DAILY 08/31/15 [History] Psyllium Husk [Fiber] 0.52 gm PO BID 08/31/15 [History] Albuterol Sulfate [Albuterol Inhaler] 2 puff IH Q4HR PRN 10/25/16 [History] Oxygen 2 l NS AD PRN 10/25/16 [History] Lidocaine Patch [Lidoderm 5% patch] 1 each TP DAILY #30 adh..patch 12/23/16 [Rx] Lactobacillus Acidophilus [Acidophilus Probiotic] 1 mg PO DAILY 12/24/16 [ History] Warfarin [Coumadin] 3.2 mg PO Q48H 12/24/16 [History] 3 Allergy/AdvReac Type Severity Reaction Status Date / Time Barbiturates Allergy Rash Verified 09/11/17 09:51 All Systems Reviewed: A 10-system review of systems was performed and is negative for pertinent findings except as documented above in the HPI. Physical Exam - Constitutional Vitals: Temp Pulse Resp BP Pulse Ox 98.1 F 80 17 161/84 97 09/11/17 17:38 09/11/17 17:38 09/11/17 17:38 09/11/17 17:38 09/11/17 17:38 Results - Labs Result Diagrams: 09/11/17 06:02 09/11/17 06:02 Labs: Abnormal lab results PT 39.3 Seconds (9.4-12.1) H 09/11/17 06:02 Sodium 132 mEq/L (136-145) L 09/11/17 06:02 Potassium 3.4 mEq/L (3.5-5.1) L 09/11/17 06:02 Carbon Dioxide 30 mEq/L (23-29) H 09/11/17 06:02 Creatinine 0.55 mg/dL (0.60-1.20) L 09/11/17 06:02 Calculated Osmolality 274 (280-300) L 09/11/17 06:02 Calcium 8.5 mg/dL (8.6-10.3) L 09/11/17 06:02 Total Bilirubin 1.5 mg/dL (0.3-1.0) H 09/11/17 06:02 AST 47 Units/L (13-39) H 09/11/17 06:02 Serum Total Protein 5.7 g/dL (6.4-8.9) L 09/11/17 06:02 Albumin 3.1 g/dL (3.5-5.7) L 09/11/17 06:02 H & H 09/11/17 Range/Units 06:02 Hgb 13.5 (11.5-15.4) g/dL Hct 40.7 (35.3-44.9) % All other labs normal. Consult Discharge Plan - Plan Referrals: Yahir Self MD [Primary Care Provider] - Vance Deluna MD [Partnered Physician] - 09/19/17 1:50 pm
[2017-09-11] MEDS ORDERED: Warfarin perPT PO PRN (18:00)
--- NOTE | 2017-09-11 19:12 | Event Note ---
Date of Encounter: 09/12/17 Time of Encounter: 17:45 Was called by nursing staff as patient experienced sudden chest discomfort. She pointed to her epigastric area when I went to see her and had no chest pain at the time of my evaluation. She stated the pain did not radiate. Vitals were stable at the time. EkG showed paced rhythm with similar T wave changes but no significant ST or T wave concerning for an acute finding. Trops came back borderline at .04. will hold off on starting heparin drip. She is already on coumadin and INR is supratheraputic at 3.6 this morning. She later in the evening had PVC's on the monitor around 7 pm. Will check BMP and mag and replete electrolytes as needed. She had a low potassium of 3.4 on admission for which she was given 40 Meq or oral potassium in the morning. Of note, the patient is already on ASA and Beta-volodymyr as well. Will trend troponins and start heparin drip if continues to rise and consult cardiology if needed.
[2017-09-11 19:37] LABS: BUN/Creatinine Ratio 23 (6-26); Blood Urea Nitrogen 15 mg/dL (8-23); Calcium 8.7 mg/dL (8.6-10.3); Carbon Dioxide 27 mEq/L (23-29); Chloride 99 mEq/L (98-107); Glucose 95 mg/dL (70-105); Magnesium 1.6 mg/dL (1.6-2.6); Osmolality,Calculated 275 (280-300); Potassium 4.2 mEq/L (3.5-5.1); Sodium 132 mEq/L (136-145); eGFR For African Americans > 60 (> 60); eGFR For Non-African Americans > 60 (> 60)
[2017-09-11] MEDS ORDERED: Magnesium Oxide 400 MG TABLET PO ONE (21:35)
[2017-09-12 01:15] LABS: INR 3.2; Prothrombin Time 35.3 Seconds (9.4-12.1)
[2017-09-12] MEDS ORDERED: Nitroglycerin 0.4 MG TAB.SUBL SL PRN (02:28)
[2017-09-12] MEDS ORDERED: Nitroglycerin 1 INCH/GM PACKET TP ONE (02:28)
--- NOTE | 2017-09-12 02:28 | Event Note ---
Date of Encounter: 09/12/17 Time of Encounter: 02:00 Report by RN pt has elevated troponin to 1.48. Pt has one episode of chest discomfort this afternoon around 5pm. Pt is on coumadin for A Fib and INR is 3.[address] Kaur on phone. As pt has supratherapeutic INR, will not start heparin drip. Pt is on ASA and BB, will add atorvastatin 40mg po qhs start from now. Pt has mild chest tightness now, not really chest pain. Will place her on NTG paste and SL NTG prn. EKG has been done, no significant changes with previous EKG. EKGs picture texted to Dr Kaur to review.
--- NOTE | 2017-09-12 07:20 | Orthopedics Progress Note ---
Date of Encounter: 09/12/17 Time of Encounter: 07:14 Subjective Interval history: S: Leisa Christianson discussed this patient with me yesterday. I am seeing her and evaluating her images for the first time this morning. The patient indicates that 2 weeks ago she sustained an injury to her back while getting out of bed and was seen subsequently by one of our sports medicine doctors for significant low back pain. A CT scan was ordered showing a sacral fracture and she was admitted to the hospitalist. She has not been able to ambulate for the last 2 days due to excruciating pain. She complains of minimal numbness and tingling to the lower extremities at night. No other associated signs or symptoms. O: Afebrile and her vital signs are stable The patient does have morbid obesity. She does have tenderness along the sacrum posteriorly I can gently passively range the hips without significant discomfort. She can dorsiflex and plantarflex the ankle and toes as well as extend the knee. The foot is grossly sensate throughout bilaterally and they are warm and well perfused. I did evaluate the CT scan of the lumbar spine which includes the sacrum. Fixation hardware spans L3, L4, and L5. Noted is a bilateral sacral fracture with a sacral U configuration noting spino-pelvic dissociation. A: Sacral U fracture with spino-pelvic dissociation P: I did discuss the diagnosis in detail with the patient. I believe that she has a lesion resulting in spino-pelvic dissociation. Due to the significant symptoms she is experiencing as well as the risk of neurologic injury my suspicion is that she would benefit from fixation of her fracture. I will discuss this with Dr. Fatima to see if this is something he performs. Otherwise my recommendation would be for transfer to a facility where this type of procedure is performed. Objective Vital signs: Vital Signs Temp Pulse Resp BP Pulse Ox 09/12/17 06:13 98.5 F 85 16 132/62 96 09/12/17 05:13 98.4 F 80 16 142/78 96 09/12/17 04:18 98.5 F 90 16 138/84 96 09/12/17 04:03 98.6 F 90 14 140/85 96 09/12/17 03:48 98.4 F 78 16 161/78 95 09/12/17 03:34 98.1 F 80 16 155/62 95 09/11/17 23:43 98.1 F 73 16 128/78 95 09/11/17 22:42 97.6 F 98 14 136/85 98 09/11/17 19:53 98.0 F 80 15 144/76 97 09/11/17 17:38 98.1 F 80 17 161/84 97 09/11/17 15:38 97.9 F 80 16 142/85 95 09/11/17 11:27 98.7 F 81 15 121/73 93 09/11/17 07:43 98.0 F 80 15 133/75 94 Intake and Output 09/11/17 09/11/17 09/12/17 15:59 23:59 07:59 Intake Total 200 / 200 Output Total 550 / 550 700 / 700 Balance -350 / -350 -700 / -700 Intake: Oral 200 / 200 Output: Urine 550 / 550 700 / 700 Other: # Voids 1 # Bowel Movements 1 - Labs CBC & BMP: 09/11/17 06:02 09/11/17 17:47 Labs: Abnormal lab results PT 35.3 Seconds (9.4-12.1) H 09/12/17 00:35 Sodium 132 mEq/L (136-145) L 09/11/17 17:47 Calculated Osmolality 275 (280-300) L 09/11/17 17:47 Total Bilirubin 1.5 mg/dL (0.3-1.0) H 09/11/17 06:02 AST 47 Units/L (13-39) H 09/11/17 06:02 Troponin I 1.48 ng/mL (< 0.04) H* 09/12/17 00:35 Serum Total Protein 5.7 g/dL (6.4-8.9) L 09/11/17 06:02 Albumin 3.1 g/dL (3.5-5.7) L 09/11/17 06:02 - VTE Reasons for not Prescribing Prophylaxis: Not indicated-Anticoagulated or INR therapeutic Consult Discharge Plan - Plan Referrals: Vance Deluna MD [Partnered Physician] - 09/19/17 1:50 pm Yahir Self MD [Primary Care Provider] -
--- NOTE | 2017-09-12 07:34 | Internal Med Progress Note ---
Date of Encounter: 09/12/17 Time of Encounter: 07:28 - Assessment and plan (1) NSTEMI (non-ST elevated myocardial infarction) Current Visit: Yes Status: Acute Assessment and plan: Patient has had troponins that are trending up. She has no chest pain currently. She is hemodynamically stable. We will consult cardiology. No heparin drip as her INR supratherapeutic. She is on aspirin and beta volodymyr. Lipitor has been added. Nothing by mouth for now (2) Closed sacral fracture Current Visit: Yes Status: Acute Assessment and plan: Nonoperative. Orthopedics following. Continue pain control. Continue PTOT. Qualifiers: Encounter type: initial encounter Zone of sacrum fracture: unspecified portion of sacrum Qualified Code(s): S32.10XA - Unspecified fracture of sacrum , initial encounter for closed fracture (3) Muscle strain of right upper arm Current Visit: Yes Status: Acute Assessment and plan: Lidoderm patch. Orthopedics is aware. Qualifiers: Encounter type: initial encounter Qualified Code(s): S46.911A - Strain of unspecified muscle, fascia and tendon at shoulder and upper arm level, right arm , initial encounter (4) Atrial fibrillation Current Visit: Yes Status: Chronic Assessment and plan: Continue beta volodymyr. She supratherapeutic with Coumadin for anticoagulation. Qualifiers: Atrial fibrillation type: chronic Qualified Code(s): I48.2 - Chronic atrial fibrillation (5) DVT prophylaxis Current Visit: Yes Status: Acute Assessment and plan: INR is supratherapeutic. She is on Coumadin - Subjective Interval history: Patient was seen and examined. She was admitted with sacral fractures are nonoperative. Yesterday evening she started having chest pain which is resolved. She only had one episode. Troponins came back elevated. She has been afebrile. Pain is about 6 out of 10. - Constitutional Vitals: Temp Pulse Resp BP Pulse Ox 98.5 F 85 16 132/62 96 09/12/17 06:13 09/12/17 06:13 09/12/17 06:13 09/12/17 06:13 09/12/17 06:13 General appearance: Present: cooperative, mild distress, A&O X 3, pleasant Exam: GEN: NAD CVS: RRR. S1, S2, No m/r/g RESP: CTAB ABD: Soft, NT, ND, +BS EXT: No edema. 2+ DP. No rashes NEURO: Nonfocal Internal Medicine: Result - Labs CBC & Chem 7: 09/11/17 06:02 09/11/17 17:47 Labs: BMP 09/11/17 17:47 Sodium 132 L Potassium 4.2 Chloride 99 Carbon Dioxide 27 BUN 15 Creatinine 0.66 Glucose 95 Calcium 8.7 Cardiac Enzymes 09/11/17 09/12/17 Range/Units 17:47 00:35 Troponin I 0.04 H* 1.48 H* (< 0.04) ng/mL - ABG Interpretation ABG results: PT/INR, D-dimer PT 35.3 Seconds (9.4-12.1) H 09/12/17 00:35 - VTE Reasons for not Prescribing Prophylaxis: Not indicated-Anticoagulated or INR therapeutic Consult Discharge Plan - Plan Referrals: Vance Deluna MD [Partnered Physician] - 09/19/17 1:50 pm Yahir Self MD [Primary Care Provider] -
[2017-09-12 07:56] LABS: Basophils # 0.1 K/mcL (0.0-0.2); Basophils % 0.5 %; Eosinophils # 0.1 K/mcL (0.0-0.6); Eosinophils % 0.6 %; Hematocrit 42.3 % (35.3-44.9); Immature Granulocytes % 0.3 % (0-4); Lymphocytes # 2.1 K/mcL (0.6-4.6); Lymphocytes % 22.1 %; Mean Corpuscular HGB Conc 33.1 g/dL (31.6-35.5); Mean Corpuscular Hemoglobin 30.6 pg (28.0-33.3); Mean Corpuscular Volume 92.6 fL (83.0-100.0); Mean Platelet Volume 9.4 fL (9.4-12.4); Monocytes % 10.5 %; Neutrophils # 6.2 K/mcL (1.6-8.9); Platelet Count 185 K/mcL (140-400); Red Blood Count 4.57 M/mcL (3.82-4.97); Red Cell Distribution Width 12.1 % (11.5-14.5)
[2017-09-12 08:09] LABS: BUN/Creatinine Ratio 22 (6-26); Blood Urea Nitrogen 10 mg/dL (8-23); Calcium 8.4 mg/dL (8.6-10.3); Carbon Dioxide 25 mEq/L (23-29); Chloride 100 mEq/L (98-107); Glucose 104 mg/dL (70-105); Magnesium 1.6 mg/dL (1.6-2.6); Osmolality,Calculated 275 (280-300); Potassium 3.8 mEq/L (3.5-5.1); Sodium 133 mEq/L (136-145); eGFR For African Americans > 60 (> 60); eGFR For Non-African Americans > 60 (> 60)
[2017-09-12] MEDS: Aspirin Enteric Coated 81 MG Tablet PO SCH (08:42)
[2017-09-12] MEDS: Cholecalciferol (D-3) 1,000 UNIT TABLET PO SCH (08:44)
[2017-09-12] MEDS: Multivit/Ca/Min/Fe/FA 1 TAB TABLET PO SCH (08:44)
[2017-09-12] MEDS: Lactobacillus 1 EACH CAP.SPRINK PO SCH (08:44)
[2017-09-12] MEDS: *HR* HYDROcodone/Acet 10/325 mg TABLET PO PRN ×2 (11:10→21:02)
--- NOTE | 2017-09-12 13:54 | Event Note ---
Date of Encounter: 09/12/17 Time of Encounter: 10:45 Discussed patient's case with Dr. Blood and Dr. Fatima. Patient is known to Dr. Fatima. He reviewed CT scan and states that conservative measures at this time would most benefit patient rather than transfer for fixation at this time given her other health conditions. In addition he request she follow up with him (Dr. Fatima) as an outpatient given her history of fusion. Patient is to mobilize as tolerated with walker and analgesics and continue with other medical condition care per hospitalist team.
--- NOTE | 2017-09-12 14:28 | Cardiology Consult Note ---
<Wayne Ang - Last Filed: 09/12/17 14:12> Date of Encounter: 09/12/17 Time of Encounter: 14:12 Assessment and Plan (1) NSTEMI (non-ST elevated myocardial infarction) Current Visit: Yes Status: Acute Pt with episode of heaviness Chest Pain yesterday evening. improved with NG no ST elevation on EKG trop 0.04, 1.48, 2.46. INR 3.2 today. continue to hold coumadin Cr. Wnl Medical management for now. If patient to remain here check ECHO Normal LHC on August 2015 possible LHC once INR is at acceptable levels (<1.8). (2) Closed sacral fracture Current Visit: Yes Status: Acute Patient with b/l Sacral Fx that will require transport to higher level of care to be repaired per notes. patient may need LHC prior to surgery. medical management for now. Patient stable and could be transferred to higher level of care and receive further cardiac work up there if desired. Not necessary to hold patient here for cardiac work up. Qualifiers: Encounter type: initial encounter Zone of sacrum fracture: unspecified portion of sacrum Qualified Code(s): S32.10XA - Unspecified fracture of sacrum , initial encounter for closed fracture Discussion w patient/family: The assessment and plan as outlined above was discussed with the patient and/or family members who expressed understanding and agreement. All questions were answered. Thank you for involving us in the care of your patient. Please call with any questions. History of Present Illness Consult date: 09/12/17 Requesting physician: Trina Galvez Consult reason: Elevated troponin from 0.04 to 1.4 Chief complaint: Bilateral Scaral Fractures History of present illness: Ms. Serra is a 82 year old female c PMhx of a fib, CHF, HTN hepatitis, pacemaker /AICD who was transfered from [place] for intractable pelvic and hip pain. Patient was found to have b/l sacral fractures. Patient will require surgery at a higher level of care. Patient experienced onset of SOB accompanied by chest discomfort(heaviness) in the epigastric region without radiation and nausea around 17:00 yesterday. EKG was performed which did not show any ST changes. Troponin was ordered which came back 0.04. Patient was placed on 2L oxygen NC. Patient noted to have PVCs on monitor around 19:00. Patietn's INR was supratherapeutic at 3.6 and on ASA and BB, so heparin drip not initiated. Coumadin is being held for supratherapeutic INR. Trop up to 2.46 today INR 3.2 Today Patient had LHC August 2015 which showed minimal(20%) 1 vessel disease ( circumflex). LHC was performed due to abnormal Non exercise stress test earlier that admission which showed a "small sized mild intensity perfusion defect involving the apex, apicallateral and mid inferolateral duarte consistent with mild reversibility, SDS 5 no prior infarct." Past Med Surg Social Fam HX - Past Medical History Medical history: atrial fibrillation, CHF, hepatitis, hypertension Psychiatric history: no psych history - Past Surgical History Surgical History: appendectomy, hysterectomy, pacemaker/AICD, other - Social History Smoking Status: Former smoker Smokeless Tobacco Status: No Alcohol use: unknown Drug use: none - Family History Mother Adopted: No Family Member Ethnicity: Non- Living Status: Hx Family Cardiac Disorders: Yes Medications and Allergies Aspirin [Adult Low Dose Aspirin EC] 81 mg PO DAILY 07/30/15 [History] Cholecalciferol (Vitamin D3) [Vitamin D3] 2,000 unit PO DAILY 07/30/15 [History] Metoprolol [Lopressor] 50 mg PO BID 07/30/15 [History] Omeprazole [PriLOSEC] 20 mg PO BID 07/30/15 [History] Oxybutynin Chloride [Ditropan Xl] 10 mg PO DAILY 07/30/15 [History] Potassium Chloride [Klor-Con Sprinkle] 10 meq PO BID 07/30/15 [History] Warfarin [Coumadin] 4 mg PO Q48H 07/30/15 [History] Docosahexanoic Acid/Epa [Fish Oil Concentrate Softgel] 1 each PO DAILY 08/31/15 [History] HYDROcodone/Acet 10/325 mg [[place] 10-325 mg] 1 each PO Q6H PRN 08/31/15 [History ] Losartan/Hydrochlorothiazide [Hyzaar 100-12.5 Tablet] 1 each PO DAILY 08/31/15 [ History] Milk Thistle Seed Extract [Milk Thistle] 1,000 mg PO DAILY 08/31/15 [History] Multivitamin [Multivitamins] 1 each PO DAILY 01/20/16 [History] Psyllium Husk [Fiber] 0.52 gm PO BID 08/31/15 [History] Oxygen 2 l NS AD PRN 10/25/16 [History] Lactobacillus Acidophilus [Acidophilus Probiotic] 1 mg PO DAILY 12/24/16 [ History] Warfarin [Coumadin] 3.5 mg PO Q48H 12/24/16 [History] Estradiol [Estrace] 1 appl TP AD 09/12/17 [History] 3 Allergy/AdvReac Type Severity Reaction Status Date / Time Barbiturates Allergy Rash Verified 09/11/17 09:51 All Systems Review: A 10-system review of systems was performed and is negative for pertinent findings except as documented above in the HPI. Physical Examination General: Conversant, No Apparent Distress HEENT: Atraumatic, Normocephaly, Mucus Membranes Moist Neck: No JVD, Normal carotid pulses Cardiac: Reg Rate and Rhythm, Normal S1 and S2, No Murmur Lungs: Normal Breath Sounds, No Wheeze, Rales, Rhonchi Neuro: Alert and responsive, No focal deficits noted Abdomen: Soft, Non-Tender Skin: No rashes noted on visualized skin Musculoskeletal: No Chest Wall Tenderness Extremities: No Clubbing, No Cyanosis, No Edema, Normal Pulses Results 09/12/17 07:42 09/12/17 07:42 Lab Results 09/11/17 09/11/17 09/12/17 17:47 17:47 00:35 WBC Hgb Hct Plt Count INR 3.2 Sodium 132 L Potassium 4.2 Chloride 99 Carbon Dioxide 27 BUN 15 Creatinine 0.66 Glucose 95 Calcium 8.7 Magnesium 1.6 Troponin I 0.04 H* 09/12/17 09/12/17 09/12/17 00:35 05:52 07:42 WBC 9.3 Hgb 14.0 Hct 42.3 Plt Count 185 INR Sodium Potassium Chloride Carbon Dioxide BUN Creatinine Glucose Calcium Magnesium Troponin I 1.48 H* 2.46 H* 09/12/17 07:42 WBC Hgb Hct Plt Count INR Sodium 133 L Potassium 3.8 Chloride 100 Carbon Dioxide 25 BUN 10 Creatinine 0.45 L Glucose 104 Calcium 8.4 L Magnesium 1.6 Troponin I Consult Discharge Plan - Plan Referrals: Vance Deluna MD [Partnered Physician] - 09/19/17 1:50 pm Yahir Self MD [Primary Care Provider] - <SurendraRamon - Last Filed: 09/12/17 15:20> Date of Encounter: 09/12/17 - Attending Attestation I examined this patient and my medical decision-making was reviewed with the Resident Physician. I agree with the documented findings, disposition and treatment plan as described except to the extent set forth below. Chest pain in setting of sacral fractures. NTSTEMI noted. Recommend medical mgmt. for now. May need left heart cath prior to surgery. Assessment and Plan Discussion w patient/family: The assessment and plan as outlined above was discussed with the patient and/or family members who expressed understanding and agreement. All questions were answered. Thank you for involving us in the care of your patient. Please call with any questions. History of Present Illness History of present illness: Ms. Serra is a 82 year old female All Systems Review: A 10-system review of systems was performed and is negative for pertinent findings except as documented above in the HPI. Results 09/12/17 07:42 09/12/17 07:42 Lab Results 09/11/17 09/11/17 09/12/17 17:47 17:47 00:35 WBC Hgb Hct Plt Count INR 3.2 Sodium 132 L Potassium 4.2 Chloride 99 Carbon Dioxide 27 BUN 15 Creatinine 0.66 Glucose 95 Calcium 8.7 Magnesium 1.6 Troponin I 0.04 H* 09/12/17 09/12/17 09/12/17 00:35 05:52 07:42 WBC 9.3 Hgb 14.0 Hct 42.3 Plt Count 185 INR Sodium Potassium Chloride Carbon Dioxide BUN Creatinine Glucose Calcium Magnesium Troponin I 1.48 H* 2.46 H* 09/12/17 07:42 WBC Hgb Hct Plt Count INR Sodium 133 L Potassium 3.8 Chloride 100 Carbon Dioxide 25 BUN 10 Creatinine 0.45 L Glucose 104 Calcium 8.4 L Magnesium 1.6 Troponin I
--- NOTE | 2017-09-12 17:10 | Electrocardiograph Report ---
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
--- NOTE | 2017-09-12 17:21 | Electrocardiograph Report ---
[place] [id number] Test Date: 2017-09-11 Pat Name: Kaitlynn Serra Department: 114 Room: [facility] Gender: F Cook'S Assistant: : 1935 Requested By: Gurwinder Polanco Order Number: [id number] Reading MD: Ramon Agosto Measurements Intervals [place] Rate: 80 P: 192 LA: 118 QRS: -72 QRSD: 145 T: 100 QT: 432 QTc: 467 Interpretive Statements ELECTRONIC VENTRICULAR PACEMAKER ABNORMAL RHYTHM ECG Electronically Signed On 09-12-2017 17:19:39 EST by Ramon Agosto
[2017-09-12] MEDS: 0.9 % Sodium Chloride 1,000 ML IVC SCH (19:13)
[2017-09-13] MEDS: *HR* HYDROcodone/Acet 10/325 mg TABLET PO PRN ×3 (03:09→16:28)
[2017-09-13 06:30] LABS: Basophils # 0.1 K/mcL (0.0-0.2); Basophils % 0.5 %; Eosinophils # 0.2 K/mcL (0.0-0.6); Eosinophils % 1.7 %; Hematocrit 41.3 % (35.3-44.9); Hemoglobin 13.6 g/dL (11.5-15.4); Immature Granulocytes % 0.3 % (0-4); Lymphocytes # 2.5 K/mcL (0.6-4.6); Lymphocytes % 26.1 %; Mean Corpuscular HGB Conc 32.9 g/dL (31.6-35.5); Mean Corpuscular Hemoglobin 30.6 pg (28.0-33.3); Mean Platelet Volume 9.5 fL (9.4-12.4); Monocytes % 10.5 %; Neutrophils # 5.7 K/mcL (1.6-8.9); Platelet Count 176 K/mcL (140-400); Red Blood Count 4.44 M/mcL (3.82-4.97); Segmented Neutrophils % 60.9 %
[2017-09-13 06:41] LABS: INR 2.1; Prothrombin Time 22.9 Seconds (9.4-12.1)
[2017-09-13 06:55] LABS: BUN/Creatinine Ratio 27 (6-26); Blood Urea Nitrogen 12 mg/dL (8-23); Calcium 8.2 mg/dL (8.6-10.3); Carbon Dioxide 27 mEq/L (23-29); Chloride 103 mEq/L (98-107); Glucose 107 mg/dL (70-105); Magnesium 1.8 mg/dL (1.6-2.6); Osmolality,Calculated 278 (280-300); Potassium 3.9 mEq/L (3.5-5.1); Sodium 134 mEq/L (136-145); eGFR For African Americans > 60 (> 60); eGFR For Non-African Americans > 60 (> 60)
[2017-09-13] MEDS ORDERED: Magnesium Oxide 400 MG TABLET PO ONE (07:52)
--- NOTE | 2017-09-13 07:57 | Internal Med Progress Note ---
Date of Encounter: 09/13/17 Time of Encounter: 07:55 - Assessment and plan (1) NSTEMI (non-ST elevated myocardial infarction) Current Visit: Yes Status: Acute Assessment and plan: Patient has had troponins that trended up but now are trending down. She has no chest pain currently. She is hemodynamically stable. Appreciate cardiology' s input. Plans for left heart catheter at some point likely this stay. We will leave heparin drip ordering to cardiology. INR is 2.1. She is on aspirin and beta volodymyr. Lipitor has been added. Echo pending (2) Closed sacral fracture Current Visit: Yes Status: Acute Assessment and plan: Nonoperative. Orthopedics following. Continue pain control. Continue PTOT. Qualifiers: Encounter type: initial encounter Zone of sacrum fracture: unspecified portion of sacrum Qualified Code(s): S32.10XA - Unspecified fracture of sacrum , initial encounter for closed fracture (3) Muscle strain of right upper arm Current Visit: Yes Status: Acute Assessment and plan: Lidoderm patch. Orthopedics is aware. Qualifiers: Encounter type: initial encounter Qualified Code(s): S46.911A - Strain of unspecified muscle, fascia and tendon at shoulder and upper arm level, right arm , initial encounter (4) Atrial fibrillation Current Visit: Yes Status: Chronic Assessment and plan: Continue beta volodymyr. She supratherapeutic with Coumadin for anticoagulation. Qualifiers: Atrial fibrillation type: chronic Qualified Code(s): I48.2 - Chronic atrial fibrillation (5) DVT prophylaxis Current Visit: Yes Status: Acute Assessment and plan: Coumadin. INR is 2.1. We will hold Coumadin dose tonight in case cardiology was to do a heart catheterization. - Subjective Interval history: Patient was seen and examined. She was admitted with sacral fractures are nonoperative. Today he has been complicated by chest pain with elevation of troponins. Seen by cardiology. Currently chest pain-free. Afebrile. Pain is well-controlled. - Constitutional Vitals: Temp Pulse Resp BP Pulse Ox 97.9 F 83 18 149/70 94 09/13/17 06:08 09/13/17 06:08 09/13/17 06:08 09/13/17 06:08 09/13/17 06:08 General appearance: Present: cooperative, mild distress, A&O X 3, pleasant Exam: GEN: NAD CVS: RRR. S1, S2, No m/r/g RESP: CTAB ABD: Soft, NT, ND, +BS EXT: No edema. 2+ DP. No rashes NEURO: Nonfocal Internal Medicine: Result - Labs CBC & Chem 7: 09/13/17 06:11 09/13/17 06:11 Labs: Short CBC 09/12/17 09/13/17 Range/Units 07:42 06:11 WBC 9.3 9.4 (4.3-11.1) K/mcL Hgb 14.0 13.6 (11.5-15.4) g/dL Hct 42.3 41.3 (35.3-44.9) % Plt Count 185 176 (140-400) K/mcL Neutrophils # 6.2 5.7 (1.6-8.9) K/mcL BMP 09/12/17 09/13/17 07:42 06:11 Sodium 133 L 134 L Potassium 3.8 3.9 Chloride 100 103 Carbon Dioxide 25 27 BUN 10 12 Creatinine 0.45 L 0.45 L Glucose 104 107 H Calcium 8.4 L 8.2 L Cardiac Enzymes 09/13/17 Range/Units 06:11 Troponin I 1.15 H* (< 0.04) ng/mL - ABG Interpretation ABG results: PT/INR, D-dimer PT 22.9 Seconds (9.4-12.1) H 09/13/17 06:11 - VTE Reasons for not Prescribing Prophylaxis: Not indicated-Anticoagulated or INR therapeutic Consult Discharge Plan - Plan Referrals: Vance Deluna MD [Partnered Physician] - 09/19/17 1:50 pm Yahir Self MD [Primary Care Provider] -
--- NOTE | 2017-09-13 09:12 | Cardiology Progress Note ---
<Wayne Ang - Last Filed: 09/13/17 09:58> Date of Encounter: 09/13/17 Time of Encounter: 09:08 Assessment and Plan (1) NSTEMI (non-ST elevated myocardial infarction) Current Visit: Yes Status: Acute Pt with episode of heaviness Chest Pain 2 evenings ago and then again last night. improved with NG no ST elevation on EKG trop 0.04, 1.48, 2.46. EKG repeated last night due to episode of chest heaviness. No changes on EKG repeat Trop 1.15 serial troponin's ordered. INR 2.1 today. Cr. Wnl Normal C on August 2015 Plan: Medical management for now. ECHO performed awaiting read. continue to hold coumadin [facility] once INR is at acceptable levels (<1.8) this would likely be Saturday. in light of recurrent symptom will start Imdur 30mg Start DVT PPx tomorrow when INR below 2. (2) Closed sacral fracture Current Visit: Yes Status: Acute Patient with b/l Sacral Fx Current plan is for conservative management. Qualifiers: Encounter type: initial encounter Zone of sacrum fracture: unspecified portion of sacrum Qualified Code(s): S32.10XA - Unspecified fracture of sacrum , initial encounter for closed fracture Discussion w patient/family: The assessment and plan as outlined above was discussed with the patient and/or family members who expressed understanding and agreement. All questions were answered. Thank you for involving us in the care of your patient. Please call with any questions. Subjective Principal diagnosis: b/l Sacral Fracture Interval history: Patient reports having another episode of chest heaviness last night. EKG performed at that time. Unchanged. Troponin checked at that time 1.15. Serial troponin's pending. Based on primary team's notes it was recommended patient not be transferred and to use conservative measures. Objective Vital Signs, Last 4 Hours Temp Pulse Resp BP Pulse Ox 09/13/17 06:08 97.9 F 83 18 149/70 94 General: Conversant, No Apparent Distress HEENT: Atraumatic, Normocephaly, Mucus Membranes Moist Neck: No JVD Cardiac: Reg Rate and Rhythm, Normal S1 and S2, No Murmur Lungs: Normal Breath Sounds, No Wheeze, Rales, Rhonchi Neuro: Alert and responsive, No focal deficits noted Abdomen: Soft, Non-Tender Skin: No rashes noted on visualized skin Musculoskeletal: No Chest Wall Tenderness Extremities: No Clubbing, No Cyanosis, No Edema, Normal Pulses Results 09/13/17 06:11 09/13/17 06:11 Lab Results 09/13/17 09/13/17 09/13/17 06:11 06:11 06:11 WBC 9.4 Hgb 13.6 Hct 41.3 Plt Count 176 INR 2.1 Sodium 134 L Potassium 3.9 Chloride 103 Carbon Dioxide 27 BUN 12 Creatinine 0.45 L Glucose 107 H Calcium 8.2 L Magnesium 1.8 Troponin I 09/13/17 06:11 WBC Hgb Hct Plt Count INR Sodium Potassium Chloride Carbon Dioxide BUN Creatinine Glucose Calcium Magnesium Troponin I 1.15 H* - VTE Reasons for not Prescribing Prophylaxis: Not indicated-Anticoagulated or INR therapeutic Consult Discharge Plan - Plan Referrals: Vance Deluna MD [Partnered Physician] - 09/19/17 1:50 pm Yahir Self MD [Primary Care Provider] - <Ramon Agosto - Last Filed: 09/13/17 10:54> Date of Encounter: 09/13/17 Assessment and Plan Discussion w patient/family: The assessment and plan as outlined above was discussed with the patient and/or family members who expressed understanding and agreement. All questions were answered. Thank you for involving us in the care of your patient. Please call with any questions. I examined this patient and my medical decision-making was reviewed with the Resident Physician. I agree with the documented findings, disposition and treatment plan as described except to the extent set forth below. Results 09/13/17 06:11 09/13/17 06:11 Lab Results 09/13/17 09/13/17 09/13/17 06:11 06:11 06:11 WBC 9.4 Hgb 13.6 Hct 41.3 Plt Count 176 INR 2.1 Sodium 134 L Potassium 3.9 Chloride 103 Carbon Dioxide 27 BUN 12 Creatinine 0.45 L Glucose 107 H Calcium 8.2 L Magnesium 1.8 Troponin I 09/13/17 06:11 WBC Hgb Hct Plt Count INR Sodium Potassium Chloride Carbon Dioxide BUN Creatinine Glucose Calcium Magnesium Troponin I 1.15 H*
[2017-09-13] MEDS: Aspirin Enteric Coated 81 MG Tablet PO SCH (09:47)
[2017-09-13] MEDS: Cholecalciferol (D-3) 1,000 UNIT TABLET PO SCH (09:47)
[2017-09-13] MEDS: Multivit/Ca/Min/Fe/FA 1 TAB TABLET PO SCH (09:47)
[2017-09-13] MEDS: Lactobacillus 1 EACH CAP.SPRINK PO SCH (09:48)
--- NOTE | 2017-09-13 13:24 | Electrocardiograph Report ---
[place] [id number] Test Date: 2017-09-12 Pat Name: Kaitlynn Serra Department: 114 Room: [facility] Gender: F Orthopedic Cast Specialist: [id number] : 1935 Requested By: Matthew Marlow Order Number: [id number] Reading MD: Ramon Agosto Measurements Intervals [place] Rate: 80 P: NM: 0 QRS: -66 QRSD: 148 T: 78 QT: 432 QTc: 467 Interpretive Statements ELECTRONIC VENTRICULAR PACEMAKER ABNORMAL RHYTHM ECG Electronically Signed On 09-13-2017 13:22:46 EST by Ramon Agosto
[2017-09-13] MEDS: Isosorbide MONOnitrate (24 HR) 30 MG TAB.ER.24H PO SCH (16:28)
--- NOTE | 2017-09-13 18:02 | Electrocardiograph Report ---
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
[2017-09-13] MEDS: *HR* OxyCODONE Immed Rel 5 MG TABLET PO PRN (23:08)
[2017-09-14] MEDS: *HR* OxyCODONE Immed Rel 5 MG TABLET PO PRN (05:51)
[2017-09-14 06:36] LABS: Basophils % 0.5 %; Eosinophils # 0.3 K/mcL (0.0-0.6); Eosinophils % 3.1 %; Hematocrit 39.6 % (35.3-44.9); Hemoglobin 13.4 g/dL (11.5-15.4); Immature Granulocytes % 0.2 % (0-4); Lymphocytes # 2.8 K/mcL (0.6-4.6); Lymphocytes % 33.5 %; Mean Corpuscular HGB Conc 33.8 g/dL (31.6-35.5); Mean Corpuscular Volume 91.7 fL (83.0-100.0); Mean Platelet Volume 9.4 fL (9.4-12.4); Monocytes # 0.9 K/mcL (0.0-1.3); Monocytes % 11.2 %; Neutrophils # 4.3 K/mcL (1.6-8.9); Platelet Count 170 K/mcL (140-400); Red Blood Count 4.32 M/mcL (3.82-4.97); Red Cell Distribution Width 12.3 % (11.5-14.5); Segmented Neutrophils % 51.5 %
[2017-09-14 06:40] LABS: INR 1.8; Prothrombin Time 19.1 Seconds (9.4-12.1)
[2017-09-14 06:53] LABS: BUN/Creatinine Ratio 33 (6-26); Blood Urea Nitrogen 15 mg/dL (8-23); Calcium 8.3 mg/dL (8.6-10.3); Carbon Dioxide 29 mEq/L (23-29); Chloride 100 mEq/L (98-107); Glucose 103 mg/dL (70-105); Magnesium 1.7 mg/dL (1.6-2.6); Osmolality,Calculated 277 (280-300); Potassium 4.2 mEq/L (3.5-5.1); Sodium 133 mEq/L (136-145); eGFR For African Americans > 60 (> 60); eGFR For Non-African Americans > 60 (> 60)
[2017-09-14] MEDS ORDERED: Magnesium Oxide 400 MG TABLET PO ONE (07:40)
[2017-09-14] MEDS ORDERED: *HR* Enoxaparin 40 MG/0.4 ML SYRINGE SQ SCH (07:45)
[2017-09-14] MEDS: Cholecalciferol (D-3) 1,000 UNIT TABLET PO SCH (09:07)
[2017-09-14] MEDS: *HR* HYDROcodone/Acet 5/325 mg TABLET PO PRN ×2 (09:07→15:34)
[2017-09-14] MEDS: Lactobacillus 1 EACH CAP.SPRINK PO SCH (09:07)
[2017-09-14] MEDS: Isosorbide MONOnitrate (24 HR) 30 MG TAB.ER.24H PO SCH (09:07)
[2017-09-14] MEDS: Aspirin Enteric Coated 81 MG Tablet PO SCH (09:07)
[2017-09-14] MEDS: Multivit/Ca/Min/Fe/FA 1 TAB TABLET PO SCH (09:07)
--- NOTE | 2017-09-14 12:38 | Internal Med Progress Note ---
Date of Encounter: 09/14/17 Time of Encounter: 07:35 - Assessment and plan (1) NSTEMI (non-ST elevated myocardial infarction) Current Visit: Yes Status: Acute Assessment and plan: Patient has had troponins that trended up but now are trending down. She has no chest pain currently. She is hemodynamically stable. Appreciate cardiology' s input. Plans for left heart catheter at some point likely this stay. We will leave heparin drip ordering to cardiology. INR is 1.8. She is on aspirin and beta volodymyr. Lipitor has been added. Echo with LVEF 55-60%. mild AR, mild -mod MR, mod TR, mod pulm HTN. (2) Closed sacral fracture Current Visit: Yes Status: Acute Assessment and plan: Nonoperative. Orthopedics following. Continue pain control. Continue PTOT. Qualifiers: Encounter type: initial encounter Zone of sacrum fracture: unspecified portion of sacrum Qualified Code(s): S32.10XA - Unspecified fracture of sacrum , initial encounter for closed fracture (3) Muscle strain of right upper arm Current Visit: Yes Status: Acute Assessment and plan: Lidoderm patch. Orthopedics is aware. Qualifiers: Encounter type: initial encounter Qualified Code(s): S46.911A - Strain of unspecified muscle, fascia and tendon at shoulder and upper arm level, right arm , initial encounter (4) Atrial fibrillation Current Visit: Yes Status: Chronic Assessment and plan: Continue beta volodymyr. She supratherapeutic with Coumadin for anticoagulation initially but down to 1.8 now. heparin drip per cardiology as they coordinate [facility] plans. Qualifiers: Atrial fibrillation type: unspecified Qualified Code(s): I48.91 - Unspecified atrial fibrillation (5) DVT prophylaxis Current Visit: Yes Status: Acute Assessment and plan: start lovenox since INR is subtherapeutic. - Subjective Interval history: Patient was seen and examined. She was admitted with sacral fractures are nonoperative. Today he has been complicated by chest pain with elevation of troponins. Seen by cardiology. Currently chest pain-free. Afebrile. Pain is well-controlled. - Constitutional Vitals: Temp Pulse Resp BP Pulse Ox 97.9 F 79 16 122/76 97 09/14/17 11:13 09/14/17 11:13 09/14/17 11:13 09/14/17 11:13 09/14/17 11:13 General appearance: Present: cooperative, mild distress, A&O X 3, pleasant Exam: GEN: NAD CVS: RRR. S1, S2, No m/r/g RESP: CTAB ABD: Soft, NT, ND, +BS EXT: No edema. 2+ DP. No rashes NEURO: Nonfocal Internal Medicine: Result - Labs CBC & Chem 7: 09/14/17 06:15 09/14/17 06:15 Labs: Short CBC 09/14/17 Range/Units 06:15 WBC 8.3 (4.3-11.1) K/mcL Hgb 13.4 (11.5-15.4) g/dL Hct 39.6 (35.3-44.9) % Plt Count 170 (140-400) K/mcL Neutrophils # 4.3 (1.6-8.9) K/mcL BMP 09/14/17 06:15 Sodium 133 L Potassium 4.2 Chloride 100 Carbon Dioxide 29 BUN 15 Creatinine 0.46 L Glucose 103 Calcium 8.3 L Cardiac Enzymes 09/13/17 09/13/17 Range/Units 12:32 17:47 Troponin I 3.80 H* 3.38 H* (< 0.04) ng/mL - ABG Interpretation ABG results: PT/INR, D-dimer PT 19.1 Seconds (9.4-12.1) H 09/14/17 06:15 - VTE Reasons for not Prescribing Prophylaxis: Not indicated-Anticoagulated or INR therapeutic Consult Discharge Plan - Plan Referrals: Vance Deluna MD [Partnered Physician] - 09/19/17 1:50 pm Yahir Self MD [Primary Care Provider] -
--- NOTE | 2017-09-14 14:12 | Cardiology Progress Note ---
Date of Encounter: 09/14/17 Time of Encounter: 14:10 Assessment and Plan (1) NSTEMI (non-ST elevated myocardial infarction) Current Visit: Yes Status: Acute Peak troponin 3.80, downtrended to 3.38. 2 episodes of chest pain during stay relieved with nitro. No recurrent chest pain overnight. EKG without ischemic changes. 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 Given chest pain and peak troponin of 3.80, recommend [facility] during stay. R/B/A discussed and pt agrees to proceed. Anticoagulated on Coumadin for A-Fib, currently being held and INR 1.8 today. Tentatively plan for [facility] Saturday. Continue ASA, Statin, BB, Imdur. Start heparin gtt since INR is subtherapeutic now. Echo resulted--LVEF 55-60%. Normal LV chamber size and function. Mild concentric LVH. Severely dilated left atrium. Severely dilated right atrium. Moderately calcified aortic valve leaflets with reduced excursion. Mild aortic regurgitation. Mild-moderate mitral regurgitation. Moderate tricuspid regurgitation. Moderate pulmonary hypertension. Estimated RVSP is 47 mmHg. Continue to follow. Plan for [facility] Saturday. (2) Closed sacral fracture Current Visit: Yes Status: Acute Patient with b/l Sacral Fx. Current plan is for conservative management, per ortho. Qualifiers: Encounter type: initial encounter Zone of sacrum fracture: unspecified portion of sacrum Qualified Code(s): S32.10XA - Unspecified fracture of sacrum , initial encounter for closed fracture (3) Atrial fibrillation Current Visit: Yes Status: Chronic Known hx of A-Fib, currently paced. Continue BB. Anticoagulated on Coumadin, but currently on hold due to plan for [facility]. INR 1.8. Will start heparin gtt. Qualifiers: Atrial fibrillation type: unspecified Qualified Code(s): I48.91 - Unspecified atrial fibrillation Discussion w patient/family: The assessment and plan as outlined above was discussed with the patient and/or family members who expressed understanding and agreement. All questions were answered. Thank you for involving us in the care of your patient. Please call with any questions. I will discuss all the above with Dr. Ramon Agosto and make changes as necessary. Subjective Principal diagnosis: b/l Sacral Fracture Interval history: Troponin peaked at 3.80, now downtrended to 3.38. Pt denies chest pain or dyspnea overnight. INR 1.8 today. Objective Vital Signs, Last 4 Hours Temp Pulse Resp BP Pulse Ox 09/14/17 11:13 97.9 F 79 16 122/76 97 Vital Signs Temp Pulse Resp BP Pulse Ox 09/14/17 11:13 97.9 F 79 16 122/76 97 09/14/17 07:16 97.7 F 82 16 141/84 96 09/14/17 03:59 98.1 F 83 17 146/86 94 09/13/17 23:38 97.4 F L 84 17 126/80 95 09/13/17 19:45 97.5 F L 85 19 125/78 97 09/13/17 16:09 98.0 F 87 16 143/84 97 Intake and Output 09/13/17 09/14/17 09/14/17 23:59 07:59 15:59 Intake Total 800 / 800 300 / 300 360 / 360 Output Total 300 / 300 350 / 350 Balance 500 / 500 -50 / -50 360 / 360 Intake: Oral 800 / 800 300 / 300 360 / 360 Output: Urine 300 / 300 350 / 350 Other: Meal Breakfast Percent of Meal Consumed 45% # Voids 1 1 General: Conversant, No Apparent Distress HEENT: Atraumatic, Normocephaly, Mucus Membranes Moist Neck: No JVD, Normal carotid pulses Cardiac: Reg Rate and Rhythm, Normal S1 and S2, No Murmur Lungs: Normal Breath Sounds, No Wheeze, Rales, Rhonchi Neuro: Alert and responsive, No focal deficits noted Abdomen: Soft, Non-Tender Skin: No rashes noted on visualized skin Musculoskeletal: No Chest Wall Tenderness Extremities: No Clubbing, No Cyanosis, No Edema, Normal Pulses Results 09/14/17 06:15 09/14/17 06:15 Lab Results 09/13/17 09/14/17 09/14/17 17:47 06:15 06:15 WBC 8.3 Hgb 13.4 Hct 39.6 Plt Count 170 INR 1.8 Sodium Potassium Chloride Carbon Dioxide BUN Creatinine Glucose Calcium Magnesium Troponin I 3.38 H* 09/14/17 06:15 WBC Hgb Hct Plt Count INR Sodium 133 L Potassium 4.2 Chloride 100 Carbon Dioxide 29 BUN 15 Creatinine 0.46 L Glucose 103 Calcium 8.3 L Magnesium 1.7 Troponin I Short CBC 09/14/17 Range/Units 06:15 WBC 8.3 (4.3-11.1) K/mcL Hgb 13.4 (11.5-15.4) g/dL Hct 39.6 (35.3-44.9) % Plt Count 170 (140-400) K/mcL Neutrophils # 4.3 (1.6-8.9) K/mcL BMP 09/14/17 Range/Units 06:15 Sodium 133 L (136-145) mEq/L Potassium 4.2 (3.5-5.1) mEq/L Chloride 100 (98-107) mEq/L Carbon Dioxide 29 (23-29) mEq/L BUN 15 (8-23) mg/dL Creatinine 0.46 L (0.60-1.20) mg/dL Glucose 103 (70-105) mg/dL Calcium 8.3 L (8.6-10.3) mg/dL Cardiac Enzymes 09/13/17 Range/Units 17:47 Troponin I 3.38 H* (< 0.04) ng/mL Active Medications Acetaminophen (Tylenol) 650 mg PO Q6HR PRN PRN Reason: Mild Pain/Fever Stop: 03/13/18 00:30 Hydrocodone Bitart/Acetaminophen ([place] 10-325 Mg) 1 each PO Q6H PRN PRN Reason: mild to moderate pain Stop: 03/13/18 00:35 Last Admin: 09/13/17 16:28 Dose: 1 each Hydrocodone Bitart/Acetaminophen ([place] 5-325 Mg) 1 tab PO Q6HR PRN PRN Reason: Moderate Pain Stop: 03/13/18 00:30 Last Admin: 09/14/17 09:07 Dose: 1 tab Albuterol Sulfate (Albuterol Inhaler) 2 puff IH Q4HR PRN PRN Reason: Shortness Of Breath Stop: 03/13/18 00:35 Aspirin (Aspirin Ec) 81 mg PO DAILY [facility] Stop: 03/13/18 09:01 Last Admin: 09/14/17 09:07 Dose: 81 mg Atorvastatin Calcium (Lipitor) 40 mg PO HS [facility] Stop: 03/14/18 02:01 Last Admin: 09/13/17 20:21 Dose: 40 mg Enoxaparin Sodium (Lovenox) 40 mg SQ 0600 TOVA PRN Reason: Protocol Stop: 03/16/18 07:46 Last Admin: 09/14/17 09:09 Dose: 40 mg Isosorbide Mononitrate (Imdur) 30 mg PO DAILY [facility] Stop: 03/15/18 10:46 Last Admin: 09/14/17 09:07 Dose: 30 mg Lactobacillus Acidophilus/Rhamnosus (Culturelle) 1 each PO DAILY [facility] Stop: 03/13/18 09:01 Last Admin: 09/14/17 09:07 Dose: 1 each Lidocaine HCl (Lidoderm 5% Patch) 1 each TP DAILY [facility] Stop: 03/13/18 18:31 Last Admin: 09/14/17 09:07 Dose: 1 each Metoprolol Tartrate (Lopressor) 50 mg PO BID [facility] Stop: 03/13/18 09:01 Last Admin: 09/14/17 09:07 Dose: 50 mg Multivitamins/Calcium (Thera M Plus) 1 tab PO DAILY [facility] Stop: 03/13/18 09:01 Last Admin: 09/14/17 09:07 Dose: 1 tab Naloxone HCl (Narcan) 0.4 mg IVP Q2MIN PRN PRN Reason: SEE COMMENTS Stop: 03/13/18 00:30 Nitroglycerin (Nitroglycerin) 0.4 mg SL Q5MIN PRN PRN Reason: Chest Pain Stop: 03/14/18 02:29 Last Admin: 09/13/17 01:14 Dose: 0.4 mg Omeprazole (Prilosec) 20 mg PO BIDAC [facility] PRN Reason: Protocol Stop: 03/13/18 07:31 Last Admin: 09/14/17 09:07 Dose: 20 mg Oxybutynin Chloride (Ditropan) 5 mg PO BID [facility] Stop: 03/13/18 09:01 Last Admin: 09/14/17 09:07 Dose: 5 mg Oxycodone HCl (Roxicodone) 10 mg PO Q6HR PRN PRN Reason: Severe Pain Stop: 03/13/18 00:30 Last Admin: 09/14/17 05:51 Dose: 10 mg Vitamin D (Vitamin D) 1,000 unit PO DAILY [facility] Stop: 03/13/18 09:01 Last Admin: 09/14/17 09:07 Dose: 1,000 unit - Imaging and Cardiology Echo: report reviewed Cardiac cath: report reviewed - EKG Interpretation EKG results cardiology: other (12 hr tele AVG HR 81, paced, no significant pauses or ventricular arrhythmias noted) - VTE Reasons for not Prescribing Prophylaxis: Not indicated-Anticoagulated or INR therapeutic Consult Discharge Plan - Plan Referrals: Vance Deluna MD [Partnered Physician] - 09/19/17 1:50 pm Yahir Self MD [Primary Care Provider] -
[2017-09-14] MEDS ORDERED: *HR* Heparin 5,000 UNIT/ML VIAL IVP PRN ×2 (14:23)
[2017-09-14 15:09] LABS: Hematocrit 40.3 % (35.3-44.9); Hemoglobin 13.2 g/dL (11.5-15.4); Mean Corpuscular HGB Conc 32.8 g/dL (31.6-35.5); Mean Corpuscular Hemoglobin 31.1 pg (28.0-33.3); Mean Corpuscular Volume 94.8 fL (83.0-100.0); Mean Platelet Volume 9.7 fL (9.4-12.4); Platelet Count 191 K/mcL (140-400); Red Blood Count 4.25 M/mcL (3.82-4.97); Red Cell Distribution Width 12.3 % (11.5-14.5)
[2017-09-14 15:15] LABS: INR 1.7; Prothrombin Time 18.1 Seconds (9.4-12.1)
[2017-09-14 15:17] LABS: Activated Partial Thrombo Time 38.7 Seconds (26.0-36.0)
[2017-09-14] MEDS: Heparin 25,000 UNIT/500 ML D5W 25,000 UNIT/500 ML BAG IVC SCH (15:35)
[2017-09-15] MEDS: *HR* HYDROcodone/Acet 10/325 mg TABLET PO PRN ×3 (03:48→15:17)
[2017-09-15 04:33] LABS: INR 1.6; Prothrombin Time 17.9 Seconds (9.4-12.1)
[2017-09-15 04:35] LABS: Activated Partial Thrombo Time 97.2 Seconds (26.0-36.0)
[2017-09-15] MEDS: Isosorbide MONOnitrate (24 HR) 30 MG TAB.ER.24H PO SCH (08:45)
[2017-09-15] MEDS: Cholecalciferol (D-3) 1,000 UNIT TABLET PO SCH (08:45)
[2017-09-15] MEDS: Multivit/Ca/Min/Fe/FA 1 TAB TABLET PO SCH (08:45)
[2017-09-15] MEDS: Lactobacillus 1 EACH CAP.SPRINK PO SCH (08:45)
[2017-09-15] MEDS: Aspirin Enteric Coated 81 MG Tablet PO SCH (08:45)
--- NOTE | 2017-09-15 09:36 | Cardiology Progress Note ---
Date of Encounter: 09/15/17 Time of Encounter: 09:34 Assessment and Plan (1) NSTEMI (non-ST elevated myocardial infarction) Current Visit: Yes Status: Acute Peak troponin 3.80, downtrended to 3.38. 2 episodes of chest pain during stay relieved with nitro. No recurrent chest pain overnight. EKG without ischemic changes. 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 08/2015. Given chest pain and peak troponin of 3.80, recommend [facility] during stay. R/B/A discussed and pt agrees to proceed. Anticoagulated on Coumadin for A-Fib, currently being held and INR 1.86 today. Tentatively plan for [facility] tomorrow. Continue ASA, Statin, BB, Imdur. On heparin gtt since INR is subtherapeutic. Echo resulted--LVEF 55-60%. Normal LV chamber size and function. Mild concentric LVH. Severely dilated left atrium. Severely dilated right atrium. Moderately calcified aortic valve leaflets with reduced excursion. Mild aortic regurgitation. Mild-moderate mitral regurgitation. Moderate tricuspid regurgitation. Moderate pulmonary hypertension. Estimated RVSP is 47 mmHg. Continue to follow. Plan for [facility] tomorrow. NPO after midnight. (2) Closed sacral fracture Current Visit: Yes Status: Acute Patient with b/l Sacral Fx. Current plan is for conservative management, per ortho. Qualifiers: Encounter type: initial encounter Zone of sacrum fracture: unspecified portion of sacrum Qualified Code(s): S32.10XA - Unspecified fracture of sacrum , initial encounter for closed fracture (3) Atrial fibrillation Current Visit: Yes Status: Chronic Known hx of A-Fib, currently paced. Continue BB. Anticoagulated on Coumadin, but currently on hold due to plan for [facility]. INR 1.6. On heparin gtt. Qualifiers: Atrial fibrillation type: unspecified Qualified Code(s): I48.91 - Unspecified atrial fibrillation Discussion w patient/family: The assessment and plan as outlined above was discussed with the patient and/or family members who expressed understanding and agreement. All questions were answered. Thank you for involving us in the care of your patient. Please call with any questions. I will discuss all the above with Dr. Ramon Agosto and make changes as necessary. Subjective Principal diagnosis: b/l Sacral Fracture Interval history: Troponin peaked at 3.80, now downtrended to 3.38. Pt denies chest pain or dyspnea overnight. INR 1.6 today. Objective Vital Signs, Last 4 Hours Temp Pulse Resp BP Pulse Ox 09/15/17 06:45 97.8 F 81 16 139/84 97 Vital Signs Temp Pulse Resp BP Pulse Ox 09/15/17 06:45 97.8 F 81 16 139/84 97 09/15/17 05:00 97.5 F L 81 17 150/85 96 09/15/17 00:46 97.5 F L 87 16 157/91 98 09/14/17 19:18 97.8 F 87 17 145/83 97 09/14/17 16:47 97.4 F L 85 16 168/99 96 09/14/17 11:13 97.9 F 79 16 122/76 97 Intake and Output 09/14/17 09/15/17 09/15/17 23:59 07:59 15:59 Intake Total 662 / 662 308 / 308 Output Total 150 / 150 750 / 750 100 / 100 Balance 512 / 512 -442 / -442 -100 / -100 Intake: IV Fluids 142 / 142 108 / 108 Heparin 25,000 UNIT/500 ML D5W 142 / 142 108 / 108 25,000 unit In 500 ml @ 12 UNIT /KG/HR 18.956 mls/hr IVC .Q24H [facility] Rx#:[id number] Oral 520 / 520 200 / 200 Output: Urine 150 / 150 750 / 750 100 / 100 Other: Meal Dinner Percent of Meal Consumed 35% # Voids 1 2 # Urine Diapers 1 General: Conversant, No Apparent Distress HEENT: Atraumatic, Normocephaly, Mucus Membranes Moist Neck: No JVD, Normal carotid pulses Cardiac: Reg Rate and Rhythm, Normal S1 and S2, No Murmur Lungs: Normal Breath Sounds, No Wheeze, Rales, Rhonchi Neuro: Alert and responsive, No focal deficits noted Abdomen: Soft, Non-Tender Skin: No rashes noted on visualized skin Musculoskeletal: No Chest Wall Tenderness Extremities: No Clubbing, No Cyanosis, No Edema, Normal Pulses Results 09/14/17 14:33 09/14/17 06:15 Lab Results 09/14/17 09/14/17 09/14/17 14:33 14:33 21:22 WBC 10.0 Hgb 13.2 Hct 40.3 Plt Count 191 INR 1.7 APTT 38.7 H 75.8 H D 09/15/17 04:02 WBC Hgb Hct Plt Count INR 1.6 APTT 97.2 H Short CBC 09/14/17 Range/Units 14:33 WBC 10.0 (4.3-11.1) K/mcL Hgb 13.2 (11.5-15.4) g/dL Hct 40.3 (35.3-44.9) % Plt Count 191 (140-400) K/mcL Active Medications Acetaminophen (Tylenol) 650 mg PO Q6HR PRN PRN Reason: Mild Pain/Fever Stop: 03/13/18 00:30 Hydrocodone Bitart/Acetaminophen ([place] 10-325 Mg) 1 each PO Q6H PRN PRN Reason: mild to moderate pain Stop: 03/13/18 00:35 Last Admin: 09/15/17 08:46 Dose: 1 each Hydrocodone Bitart/Acetaminophen ([place] 5-325 Mg) 1 tab PO Q6HR PRN PRN Reason: Moderate Pain Stop: 03/13/18 00:30 Last Admin: 09/14/17 15:34 Dose: 1 tab Albuterol Sulfate (Albuterol Inhaler) 2 puff IH Q4HR PRN PRN Reason: Shortness Of Breath Stop: 03/13/18 00:35 Aspirin (Aspirin Ec) 81 mg PO DAILY [facility] Stop: 03/13/18 09:01 Last Admin: 09/15/17 08:45 Dose: 81 mg Atorvastatin Calcium (Lipitor) 40 mg PO HS [facility] Stop: 03/14/18 02:01 Last Admin: 09/14/17 19:33 Dose: 40 mg Heparin Sodium (Porcine) (Heparin) 4,000 unit IVP Q6HR PRN PRN Reason: SEE COMMENTS Stop: 03/16/18 14:24 Heparin Sodium (Porcine) (Heparin) 2,000 unit IVP Q6H PRN PRN Reason: SEE COMMENTS Stop: 03/16/18 14:24 Heparin Sodium/Dextrose (Heparin 25,000 Unit/500 Ml D5w) 25,000 unit in 500 mls @ 18.956 mls/hr IVC .Q24H [facility]; 12 UNIT/KG/HR PRN Reason: Protocol Stop: 03/16/18 14:31 Last Titration: 09/15/17 05:10 Dose: 10.06 unit/kg/hr, 15.9 mls/hr Isosorbide Mononitrate (Imdur) 30 mg PO DAILY [facility] Stop: 03/15/18 10:46 Last Admin: 09/15/17 08:45 Dose: 30 mg Lactobacillus Acidophilus/Rhamnosus (Culturelle) 1 each PO DAILY [facility] Stop: 03/13/18 09:01 Last Admin: 09/15/17 08:45 Dose: 1 each Lidocaine HCl (Lidoderm 5% Patch) 1 each TP DAILY [facility] Stop: 03/13/18 18:31 Last Admin: 09/15/17 08:45 Dose: 1 each Metoprolol Tartrate (Lopressor) 50 mg PO BID [facility] Stop: 03/13/18 09:01 Last Admin: 09/15/17 08:45 Dose: 50 mg Multivitamins/Calcium (Thera M Plus) 1 tab PO DAILY [facility] Stop: 03/13/18 09:01 Last Admin: 09/15/17 08:45 Dose: 1 tab Naloxone HCl (Narcan) 0.4 mg IVP Q2MIN PRN PRN Reason: SEE COMMENTS Stop: 03/13/18 00:30 Nitroglycerin (Nitroglycerin) 0.4 mg SL Q5MIN PRN PRN Reason: Chest Pain Stop: 03/14/18 02:29 Last Admin: 09/13/17 01:14 Dose: 0.4 mg Omeprazole (Prilosec) 20 mg PO BIDAC [facility] PRN Reason: Protocol Stop: 03/13/18 07:31 Last Admin: 09/15/17 08:45 Dose: 20 mg Oxybutynin Chloride (Ditropan) 5 mg PO BID [facility] Stop: 03/13/18 09:01 Last Admin: 09/15/17 08:45 Dose: 5 mg Oxycodone HCl (Roxicodone) 10 mg PO Q6HR PRN PRN Reason: Severe Pain Stop: 03/13/18 00:30 Last Admin: 09/14/17 05:51 Dose: 10 mg Vitamin D (Vitamin D) 1,000 unit PO DAILY [facility] Stop: 03/13/18 09:01 Last Admin: 09/15/17 08:45 Dose: 1,000 unit - Imaging and Cardiology Echo: report reviewed - EKG Interpretation EKG results cardiology: other (12 hr tele AVG HR 81, paced, no significant pauses or arrhythmias) - VTE Reasons for not Prescribing Prophylaxis: Not indicated-Anticoagulated or INR therapeutic Consult Discharge Plan - Plan Referrals: Vance Deluna MD [Partnered Physician] - 09/19/17 1:50 pm Yahir Self MD [Primary Care Provider] -
--- NOTE | 2017-09-15 11:26 | Internal Med Progress Note ---
Date of Encounter: 09/15/17 Time of Encounter: 07:20 - Assessment and plan (1) NSTEMI (non-ST elevated myocardial infarction) Current Visit: Yes Status: Acute Assessment and plan: Patient has had troponins that trended up but now are trending down. She has no chest pain currently. She is hemodynamically stable. Appreciate cardiology' s input. Plans for left heart catheter at some point likely this stay. Currently on heparin drip. She is on aspirin and beta volodymyr. Lipitor has been added. Echo with LVEF 55-60%. mild AR, mild-mod MR, mod TR, mod pulm HTN. (2) Closed sacral fracture Current Visit: Yes Status: Acute Assessment and plan: Nonoperative. Orthopedics following. Continue pain control. Continue PTOT. Qualifiers: Encounter type: initial encounter Zone of sacrum fracture: unspecified portion of sacrum Qualified Code(s): S32.10XA - Unspecified fracture of sacrum , initial encounter for closed fracture (3) Muscle strain of right upper arm Current Visit: Yes Status: Acute Assessment and plan: Lidoderm patch. Orthopedics is aware. Qualifiers: Encounter type: initial encounter Qualified Code(s): S46.911A - Strain of unspecified muscle, fascia and tendon at shoulder and upper arm level, right arm , initial encounter (4) Atrial fibrillation Current Visit: Yes Status: Chronic Assessment and plan: Continue beta volodymyr. She was supratherapeutic with Coumadin for anticoagulation initially and then heparin drip was started when she became subtherapeutic with holding Coumadin Qualifiers: Atrial fibrillation type: unspecified Qualified Code(s): I48.91 - Unspecified atrial fibrillation (5) DVT prophylaxis Current Visit: Yes Status: Acute Assessment and plan: Heparin drip. - Subjective Interval history: Patient was seen and examined. No acute events. She was admitted with sacral fractures are nonoperative. Stay has been complicated by chest pain with elevation of troponins. Seen by cardiology. Currently chest pain-free. Afebrile. Pain is well-controlled. - Constitutional Vitals: Temp Pulse Resp BP Pulse Ox 97.8 F 81 16 139/84 97 09/15/17 06:45 09/15/17 06:45 09/15/17 06:45 09/15/17 06:45 09/15/17 06:45 General appearance: Present: cooperative, mild distress, A&O X 3, pleasant Exam: GEN: NAD CVS: RRR. S1, S2, No m/r/g RESP: CTAB ABD: Soft, NT, ND, +BS EXT: No edema. 2+ DP. No rashes NEURO: Nonfocal Internal Medicine: Result - Labs CBC & Chem 7: 09/14/17 14:33 09/14/17 06:15 Labs: Short CBC 09/14/17 Range/Units 14:33 WBC 10.0 (4.3-11.1) K/mcL Hgb 13.2 (11.5-15.4) g/dL Hct 40.3 (35.3-44.9) % Plt Count 191 (140-400) K/mcL - ABG Interpretation ABG results: PT/INR, D-dimer PT 17.9 Seconds (9.4-12.1) H 09/15/17 04:02 - VTE Reasons for not Prescribing Prophylaxis: Not indicated-Anticoagulated or INR therapeutic Consult Discharge Plan - Plan Referrals: Vance Deluna MD [Partnered Physician] - 09/19/17 1:50 pm Yahir Self MD [Primary Care Provider] -
[2017-09-15] MEDS: *HR* OxyCODONE Immed Rel 5 MG TABLET PO PRN (12:15)
[2017-09-15] MEDS: Sennosides/Docusate Sodium TABLET PO SCH ×2 (12:16→20:02)
[2017-09-15] MEDS: Heparin 25,000 UNIT/500 ML D5W 25,000 UNIT/500 ML BAG IVC SCH (20:48)
[2017-09-16] MEDS: *HR* HYDROcodone/Acet 10/325 mg TABLET PO PRN ×2 (00:03→06:18)
[2017-09-16 05:25] LABS: Basophils % 0.5 %; Eosinophils # 0.1 K/mcL (0.0-0.6); Eosinophils % 1.6 %; Hematocrit 38.2 % (35.3-44.9); Hemoglobin 12.8 g/dL (11.5-15.4); Immature Granulocytes % 0.3 % (0-4); Lymphocytes # 1.9 K/mcL (0.6-4.6); Lymphocytes % 26.2 %; Mean Corpuscular HGB Conc 33.5 g/dL (31.6-35.5); Mean Corpuscular Hemoglobin 30.9 pg (28.0-33.3); Mean Corpuscular Volume 92.3 fL (83.0-100.0); Monocytes # 0.9 K/mcL (0.0-1.3); Monocytes % 12.2 %; Neutrophils # 4.3 K/mcL (1.6-8.9); Platelet Count 174 K/mcL (140-400); Red Blood Count 4.14 M/mcL (3.82-4.97); Red Cell Distribution Width 12.2 % (11.5-14.5); Segmented Neutrophils % 59.2 %
[2017-09-16 05:34] LABS: INR 1.5
[2017-09-16 06:22] LABS: BUN/Creatinine Ratio 32 (6-26); Blood Urea Nitrogen 14 mg/dL (8-23); Calcium 8.5 mg/dL (8.6-10.3); Carbon Dioxide 28 mEq/L (23-29); Chloride 99 mEq/L (98-107); Glucose 105 mg/dL (70-105); Osmolality,Calculated 277 (280-300); Potassium 3.7 mEq/L (3.5-5.1); Sodium 133 mEq/L (136-145); eGFR For African Americans > 60 (> 60); eGFR For Non-African Americans > 60 (> 60)
[2017-09-16] MEDS ORDERED: Potassium Chloride 20 MEQ, Lidocaine 1% 2 ML in D5% in Water 250 ML IVPB ONE (07:57)
--- NOTE | 2017-09-16 09:05 | Pre-Sedation Evaluation ---
Pre-sedation evaluation - Pre-sedation checklist Date of procedure: 09/16/17 Procedure: left heart cath Recent Vitals: Last Vital Signs Temp 98.0 F 09/16/17 06:44 Pulse 82 09/16/17 06:44 Resp 18 09/16/17 06:44 BP 139/82 09/16/17 06:44 Pulse Ox 98 09/16/17 06:44 H&P (including ROS) documented in medical record: Yes Previous reaction to sedatives/anesthetics: No Dietary Status: NPO after Midnight Dentition: No loose teeth or bridges ASA Classification *see protocol: CLASS II-Mild systemic disease Plan of Care: Pt appropriate candidate for procedure/moderate/conscious sedation
[2017-09-16] MEDS: Isosorbide MONOnitrate (24 HR) 30 MG TAB.ER.24H PO SCH (09:19)
[2017-09-16] MEDS: *HR* OxyCODONE Immed Rel 5 MG TABLET PO PRN ×2 (09:19→18:31)
[2017-09-16] MEDS: Aspirin Enteric Coated 81 MG Tablet PO SCH (09:19)
[2017-09-16] MEDS: Lactobacillus 1 EACH CAP.SPRINK PO SCH (09:20)
[2017-09-16] MEDS: Sennosides/Docusate Sodium TABLET PO SCH ×2 (09:20→21:45)
[2017-09-16] MEDS: Multivit/Ca/Min/Fe/FA 1 TAB TABLET PO SCH (09:20)
[2017-09-16] MEDS: Cholecalciferol (D-3) 1,000 UNIT TABLET PO SCH (09:21)
[2017-09-16] MEDS ORDERED: 0.9 % Sodium Chloride 1,000 ML ONE ×2 (12:01→13:17)
[2017-09-16] MEDS ORDERED: Heparin 1,000 UNITS/500 mL 500 ML ONE (12:01)
[2017-09-16] MEDS ORDERED: *HR* Heparin 10,000 UNIT/10 ML VIAL ONE (12:01)
[2017-09-16] MEDS ORDERED: ISOVUE-370 200 ML INFUS..BTL IV ONE (12:01)
[2017-09-16] MEDS ORDERED: Nitroglycerin 1,000 MCG/10 ML VIAL IV ONE (12:01)
--- NOTE | 2017-09-16 13:05 | Internal Med Progress Note ---
Date of Encounter: 09/16/17 Time of Encounter: 13:04 - Assessment and plan (1) NSTEMI (non-ST elevated myocardial infarction) Current Visit: Yes Status: Acute Assessment and plan: Patient has had troponins that trended up but now are trending down. She has no chest pain currently. She is hemodynamically stable. Appreciate cardiology' s input. Plans for left heart catheterization today. Currently on heparin drip. She is on aspirin and beta volodymyr. Lipitor has been added. Echo with LVEF 55-60%. mild AR, mild-mod MR, mod TR, mod pulm HTN. (2) Closed sacral fracture Current Visit: Yes Status: Acute Assessment and plan: Nonoperative. Orthopedics following. Continue pain control. Continue PTOT. Qualifiers: Encounter type: initial encounter Zone of sacrum fracture: unspecified portion of sacrum Qualified Code(s): S32.10XA - Unspecified fracture of sacrum , initial encounter for closed fracture (3) Muscle strain of right upper arm Current Visit: Yes Status: Acute Assessment and plan: Lidoderm patch. Orthopedics is aware. Qualifiers: Encounter type: initial encounter Qualified Code(s): S46.911A - Strain of unspecified muscle, fascia and tendon at shoulder and upper arm level, right arm , initial encounter (4) Atrial fibrillation Current Visit: Yes Status: Chronic Assessment and plan: Continue beta volodymyr. She was supratherapeutic with Coumadin for anticoagulation initially and then heparin drip was started when she became subtherapeutic with holding Coumadin Qualifiers: Atrial fibrillation type: unspecified Qualified Code(s): I48.91 - Unspecified atrial fibrillation (5) DVT prophylaxis Current Visit: Yes Status: Acute Assessment and plan: Heparin drip. - Subjective Interval history: Patient was seen and examined. No acute events. She was admitted with sacral fractures are nonoperative. Stay has been complicated by chest pain with elevation of troponins. Seen by cardiology. Currently chest pain-free. Afebrile. Pain is well-controlled. - Constitutional Vitals: Temp Pulse Resp BP Pulse Ox 97.7 F 81 18 130/83 93 09/16/17 10:38 09/16/17 10:38 09/16/17 10:38 09/16/17 10:38 09/16/17 10:38 General appearance: Present: cooperative, mild distress, A&O X 3, pleasant Exam: GEN: NAD CVS: RRR. S1, S2, No m/r/g RESP: CTAB ABD: Soft, NT, ND, +BS EXT: No edema. 2+ DP. No rashes NEURO: Nonfocal Internal Medicine: Result - Labs CBC & Chem 7: 09/16/17 04:40 09/16/17 04:40 Labs: Short CBC 09/16/17 Range/Units 04:40 WBC 7.3 (4.3-11.1) K/mcL Hgb 12.8 (11.5-15.4) g/dL Hct 38.2 (35.3-44.9) % Plt Count 174 (140-400) K/mcL Neutrophils # 4.3 (1.6-8.9) K/mcL BMP 09/16/17 04:40 Sodium 133 L Potassium 3.7 Chloride 99 Carbon Dioxide 28 BUN 14 Creatinine 0.44 L Glucose 105 Calcium 8.5 L - ABG Interpretation ABG results: PT/INR, D-dimer PT 16.0 Seconds (9.4-12.1) H 09/16/17 04:40 - VTE Reasons for not Prescribing Prophylaxis: Not indicated-Anticoagulated or INR therapeutic Consult Discharge Plan - Plan Referrals: Vance Deluna MD [Partnered Physician] - 09/19/17 1:50 pm Yahir Self MD [Primary Care Provider] -
[2017-09-16] MEDS ORDERED: *HR* FentaNYL (PF) 100 MCG/2 ML VIAL ONE (13:17)
[2017-09-16] MEDS ORDERED: *HR* Midazolam HCl 2 MG/2 ML VIAL ONE (13:17)
--- NOTE | 2017-09-16 14:24 | Invasive Diagnostic Lab Proc ---
Name: Kaitlynn Serra Date of Study: 09/16/2017 Date: 1935 Ht: 61.8in Medical Record#: [id number] Age: 82 Wt: 174.17lb Gender: Female BSA: 1.8 Order #: [id number] BMI: 32.05 Physicians Procedure Physician: Christi Ellington MD Referring MD: Referring MD: Staff Name Position Time In Bhumika Pierce RN Lab Animal Technologist 12:52 PM Juanito Alejandro RT (R) Monitor 12:52 PM Chago, Ariella RT (R) Scrub 12:52 PM Indications Indication Non-Stemi Procedures Performed Procedure CORONARY ARTERY ANGIO S&I Pre-Procedure Checklist Informed consent is complete signed and on chart. H&P is on chart. ID band is on and ID verified with patient. Patient NPO for procedure The procedure was described for the patient and questions were answered. Blood Pressure: 131/84 ECG is on chart. Rhythm: Paced Plan of Care Patient will tolerate the procedure without complications. Adequate level of comfort will be maintained. Hemodynamics will remain stable Patient will recover from procedure without complications. Respiratory function will be maintained. Cardiac rhythm will remain stable. Patient temperature will be maintained. Patient and/or family have verbalized understanding of the procedure. Patient Education Chief Complaint/Reason for Test: Cardiac Cath Developmental Category: Geriatric (65+ years) Developmentally Appropriate for Age: Yes Learning Barriers: None Education Needs: Procedure Education Method: Verbal Information Taught: Cardiac Cath Educational Evaluation: Able to repeat information Intravenous Access Time IV Size Location DC'd Fluid/Drip Rate Units RN 01:10 PM 20g 1 /" Patent On Arrival Lt Antecubital 0.9NaCl 25 ml/hr Bhumika Pierce RN Allergies Barbiturates Phenobarbital Vital Signs Time BP (mmHg) HR (bpm) O2 Sat. RR (bpm) LOC 01:10 PM 131 / 84 87 96 % 14 5 = Fully awake and oriented or at pre-proc level 01:10 PM / % 4 = Oriented but drowsy 01:25 PM / % 4 = Oriented but drowsy 01:40 PM / % 5 = Fully awake and oriented or at pre-proc level 01:18 PM 131 / 84 87 97 % 20 01:23 PM 131 / 80 84 96 % 17 01:28 PM 129 / 79 80 98 % 8 01:33 PM 122 / 75 84 98 % 13 01:38 PM 136 / 82 87 97 % 26 01:43 PM 141 / 81 84 97 % 23 01:48 PM 140 / 80 80 94 % 18 01:53 PM 140 / 81 80 98 % 18 01:58 PM 143 / 85 80 97 % 23 02:03 PM 140 / 82 80 96 % 18 02:08 PM 146 / 92 80 96 % 22 01:55 PM / % 5 = Fully awake and oriented or at pre-proc level Procedural Medications Time Medication Dose Units Method Given By 01:17 PM Oxygen 2 L/min nasal cannula Bhumika Pierce RN 01:20 PM Versed 1 mg Intravenous Bhumika Pierce RN 01:20 PM Fentanyl 50 mcg Intravenous Bhumika Pierce RN 01:26 PM Lidocaine 2% 10 ml Subcutaneous Christi Ellington MD ASA Classification: CLASS III- Severe systemic disease (i.e. prior AMI, diabetes with vascular complications, morbid obesity) Jacques Score Preprocedure Postprocedure Activity 2- Moves 4 extremities sustained head lift Activity 2- Moves 4 extremities sustained head lift Circulation 2- SBP +/= 20 points of pre-anesthetic level Circulation 2- SBP +/= 20 points of pre-anesthetic level Consciousness 2- Awake and alert oriented x 3 Consciousness 2- Awake and alert oriented x 3 O2 Saturation 2- Able to maintain O2 satruation of 92% on room air O2 Saturation 2- Able to maintain O2 satruation of 92% on room air Respiratory 2- Able to deep breathe and cough well Respiratory 2- Able to deep breathe and cough well Total Score 10 Total Score 10 Contrast Agent: Isovue Diagnostic Contrast: 81 ml Total Contrast: 81 ml Fluoro Dose: 344 mGy Procedure Log Time Note Enter By 12:52 PM Patient charges- Angio tray pack, Navilyst 3mm J, Pulse Oximetry and ACIST tubing and transducer [email or web address] 12:52 PM Bhumika Pierce RN Position: Lab Animal Technologist Time in: 12:52 [email or web address] 12:52 PM Juanito Alejandro RT (R) Position: Monitor Time in: 12:52 [email or web address] 12:52 PM Ariella Anders RT (R) Position: Scrub Time in: 12:52 [email or web address] 01:10 PM Pt arrived to supervisor labor gang 2 at 13:10 [email or web address] 01:10 PM Time: 13:10 Patient comfortable and pain free: Yes : PM Time: 13:10LOC: 5 = Fully awake and oriented or at pre-proc level : PM CathStat 01:11 PM Physician arrived 13:11 : PM Meet and zohreh completed : PM Sign in performed according to hospital policy. :12 PM Procedure start 13:11 : PM ASA Class CLASS III- Severe systemic disease (i.e. prior AMI, diabetes with vascular complications, morbid obesity) PM Time: 13:17 Oxygen on at 2 L/min per nasal cannula by Bhumika Pierce RN : PM Vitals capture started with the following parameters, Patient=Adult, Interval=5 min, Initial Vgnieiju=880 mmHg, Deflation Rate=5 mmHg, Cuff placed on Right Arm : PM Recorded ECG: HR=87 Condition=Condition 1 01:18 PM HR=87 bpm, RVSW=361/84 mmhg, SpO2=97.0 %, Resp=20 B/min : PM Case Delayed No PM Hair removed from procedure site in procedure lab using clippers. Bilateral groin prepped with Chloraprep by Selin Reilly (R), safety strap applied then patient was draped. Skin intact. : PM Clinical Presentation: Non-STEMI : PM Time: 13:20 Versed 1 mg Intravenous Given by Bhumika Pierce RN : PM Time: 13:20 Fentanyl 50 mcg Intravenous Given by Bhumika Pierce RN :23 PM HR=84 bpm, OVJO=693/80 mmhg, SpO2=96.0 %, Resp=17 B/min 01:25 PM Time: 13:10 Patient comfortable and pain free: Yes PM Time: 13:10LOC: 4 = Oriented but drowsy PM Time out performed according to hospital policy PM Pressure channel 1 zeroed. : PM Time: 13:26 10 ml Lidocaine 2% to right groin Subcutaneous Given by Christi Ellington MD [email or web address] 01:27 PM Micro-Introducer Kit utilized for sheath placement [email or web address] 01:28 PM Bolus angiogram of right Femoral complete: hand injected [email or web address] 01:28 PM HR=80 bpm, QHPK=889/79 mmhg, SpO2=98.0 %, Resp=8 B/min 01:29 PM Access obtained by percutaneous puncture. 6Fr 10cm Terumo [place] sheath placed in right Femoral artery. [id number] [email or web address] 01:29 PM 0.035 145cm Navilyst 3mmJ wire [id number] [email or web address] 01:29 PM 5Fr FL 4 catheter inserted over the wire DN [email or web address] 01:30 PM j-wire removed [email or web address] 01:31 PM 0.035 145cm Glidewire wire [id number] [email or web address] 01:32 PM glidewire removed [email or web address] 01:32 PM LCA angiography performed in multiple views. [email or web address] 01:33 PM Recorded Pressure: Ao, HR=82, Condition=Condition 1 (Aorta) Ao 131/70/96 01:33 PM HR=84 bpm, QFFB=212/75 mmhg, SpO2=98.0 %, Resp=13 B/min 01:34 PM Lesion found in Proximal LAD. Pre Stenosis: 25 Pre RENE Flow: [email or web address] 01:34 PM Proximal Left Anterior Descending Coronary Artery with 25% stenosis. If graft is supplying this territory, 0 % stenosis. [email or web address] 01:35 PM 0.035 260cm Navilyst 3mmJ wire [id number] [email or web address] 01:35 PM Catheter removed [email or web address] 01:35 PM 5Fr FR 4 catheter inserted over the wire DN [email or web address] 01:36 PM RCA angiography performed in multiple views. [email or web address] 01:36 PM Recorded Pressure: Ao, HR=89, Condition=Condition 1 (Aorta) Ao 136/67/99 01:37 PM Coronary Dominance: right [email or web address] 01:38 PM HR=87 bpm, INPQ=318/82 mmhg, SpO2=97.0 %, Resp=26 B/min 01:38 PM Catheter removed [email or web address] 01:39 PM 5Fr Pigtail catheter inserted over the wire DN [email or web address] 01:40 PM [email or web address] 01:40 PM unable to cross with pigtail [email or web address] 01:40 PM Time: 13:25 Patient comfortable and pain free: Yes [email or web address] 01:42 PM Physician reviewing films [email or web address] 01:43 PM Procedure completed at 13:43 [email or web address] 01:43 PM HR=84 bpm, FVGB=949/81 mmhg, SpO2=97.0 %, Resp=23 B/min 01:43 PM Sign out completed: Radiation Dose 343.51 mGy Fluoro Time: 3.2 Isovue 370 - 200ml contrast 81 ml given by Christi Ellington MD. Complications: NoneCardiac Rehab Consult needed: NoConfirmed administered medications: Yes [email or web address] 01:43 PM Isovue 370 - 200ml,1 Bottle(s) used. [email or web address] 01:43 PM Estimated Blood Loss: less than 20cc [email or web address] 01:44 PM Post ECG Paced [email or web address] 01:44 PM Post Blood Pressure 141/81 [email or web address] 01:45 PM Information taught Cardiac Cath [email or web address] 01:45 PM Education needs Procedure, Plan of Care, and Disease Process [email or web address] 01:45 PM Learning barriers :Sedated [email or web address] 01:45 PM Education Methods Verbal [email or web address] 01:45 PM Education evaluation Needs further instruction [email or web address] 01:46 PM Complications: None [email or web address] 01:46 PM Fluoro Time: 3.2 [email or web address] 01:46 PM Isovue 370 - 200ml contrast 81 ml given by Christi Ellington MD. [email or web address] 01:46 PM Radiation Dose 343.51 mGy [email or web address] 01:47 PM Lesion found in Right PDA. Pre Stenosis: 99 Pre RENE Flow: [email or web address] 01:47 PM Right Coronary, Right Posterior Descending Arteries with Right Posterolateral and Acute Marginal branches with 99 % stenosis. If graft is supplying this area, 0 % stenosis [email or web address] 01:48 PM HR=80 bpm, ZCPC=774/80 mmhg, SpO2=94.0 %, Resp=18 B/min 01:48 PM Family placed in consult room. [email or web address] 01:50 PM Arterial sheath pulled using manual compression and V+ Pad by Ariella Anders RT (R) [email or web address] 01:51 PM Delay to floor no [email or web address] 01:53 PM HR=80 bpm, RBYU=399/81 mmhg, SpO2=98.0 %, Resp=18 B/min 01:55 PM Time: 13:40 Patient comfortable and pain free: Yes [email or web address] 01:55 PM Time: 13:40LOC: 5 = Fully awake and oriented or at pre-proc level [email or web address] 01:58 PM HR=80 bpm, ZPEA=909/85 mmhg, SpO2=97.0 %, Resp=23 B/min 02:01 PM Report given to kristie FLORIAN Pt taken to [facility] Room #28. 13:58 [email or web address] 02:03 PM HR=80 bpm, YYAX=572/82 mmhg, SpO2=96.0 %, Resp=18 B/min 02:05 PM Site status No bleeding/hematoma - Rt Groin as reported by Sites, Ariella RT (R) at 14:05 [email or web address] 02:05 PM Opsite applied [email or web address] 02:08 PM HR=80 bpm, DMLF=303/92 mmhg, SpO2=96.0 %, Resp=22 B/min 02:08 PM Vitals capture stopped. 02:09 PM Peoples catheter inserted Bhumika pierce RN per Dr. Ellington orders. [email or web address] 02:10 PM Time: 13:55LOC: 5 = Fully awake and oriented or at pre-proc level [email or web address] 02:10 PM Time: 13:55 Patient comfortable and pain free: Yes [email or web address] 02:18 PM Patient out of room: 14:18 [email or web address] Complications Complication None None Hemodynamics Pressures Site Systolic/A Wave Diastolic/V Wave Mean AO 131 70 96 AO 136 67 99 Post Procedure Information Blood Pressure: 141/81 mmHg Rhythm: Paced Post procedural instructions were given Closure Device Time Device Success/Fail 09/16/2017 1:50:00 PM Manual Compression Successful Site Checks Time Location Status Staff Sheath In? Note 02:05 PM Rt Groin No bleeding/hematoma Sites, Ariella RT (R) Pulses Time Site Pre-Procedure Post-Procedure Note 09/16/2017 1:10:00 PM Bilateral DP & PT 2+ 09/16/2017 1:10:00 PM Bilateral radial 2+ Updated by Juanito Alejandro RT (R) on 09/16/2017 2:19:06 PM RT Philippe electronically signed on 09/16/2017 2:19:31 PM with status of Final
--- NOTE | 2017-09-16 16:02 | Event Note ---
Date of Encounter: 09/16/17 Time of Encounter: 16:00 - Cardiology Event Note [facility]: medical mgmt recommended (see official report). Continue medical therapy, imdur added. Will resume coumadin this evening, pharmacy to dose. (Afib, goal 2-3). No further cardiac testing warranted, Cardiology will sign-off. Please call with questions. Will coordinate appt in the outpatient setting. Patient was discussed and reviewed with Dr. Garcia.
[2017-09-16] MEDS ORDERED: *HR* Warfarin 4 MG TABLET PO ONE (18:00)
[2017-09-16] MEDS ORDERED: Warfarin perPT PO PRN (18:00)
[2017-09-17 06:04] LABS: Basophils % 0.6 %; Eosinophils # 0.2 K/mcL (0.0-0.6); Eosinophils % 2.4 %; Hemoglobin 12.2 g/dL (11.5-15.4); Immature Granulocytes % 0.3 % (0-4); Lymphocytes # 1.8 K/mcL (0.6-4.6); Mean Corpuscular HGB Conc 33.9 g/dL (31.6-35.5); Mean Corpuscular Hemoglobin 30.8 pg (28.0-33.3); Mean Corpuscular Volume 90.9 fL (83.0-100.0); Mean Platelet Volume 9.4 fL (9.4-12.4); Monocytes # 0.9 K/mcL (0.0-1.3); Monocytes % 12.9 %; Neutrophils # 4.1 K/mcL (1.6-8.9); Platelet Count 148 K/mcL (140-400); Red Blood Count 3.96 M/mcL (3.82-4.97); Red Cell Distribution Width 12.5 % (11.5-14.5); Segmented Neutrophils % 58.8 %
[2017-09-17 06:20] LABS: INR 1.6; Prothrombin Time 16.9 Seconds (9.4-12.1)
[2017-09-17 06:24] LABS: BUN/Creatinine Ratio 30 (6-26); Blood Urea Nitrogen 13 mg/dL (8-23); Calcium 8.3 mg/dL (8.6-10.3); Carbon Dioxide 27 mEq/L (23-29); Chloride 100 mEq/L (98-107); Glucose 104 mg/dL (70-105); Osmolality,Calculated 276 (280-300); Potassium 3.6 mEq/L (3.5-5.1); Sodium 133 mEq/L (136-145); eGFR For African Americans > 60 (> 60); eGFR For Non-African Americans > 60 (> 60)
--- NOTE | 2017-09-17 07:49 | Discharge Summary ---
Date of Encounter: 09/17/17 Time of Encounter: 07:44 - Discharge Diagnosis (1) NSTEMI (non-ST elevated myocardial infarction) Priority: Primary Status: Acute (2) Closed sacral fracture Priority: Primary Status: Acute Qualifiers: Encounter type: initial encounter Zone of sacrum fracture: unspecified portion of sacrum Qualified Code(s): S32.10XA - Unspecified fracture of sacrum , initial encounter for closed fracture (3) Muscle strain of right upper arm Priority: Primary Status: Acute Qualifiers: Encounter type: initial encounter Qualified Code(s): S46.911A - Strain of unspecified muscle, fascia and tendon at shoulder and upper arm level, right arm , initial encounter (4) Atrial fibrillation Priority: Secondary Status: Chronic Qualifiers: Atrial fibrillation type: unspecified Qualified Code(s): I48.91 - Unspecified atrial fibrillation - Discharge Medications Prescriptions: Enoxaparin [Lovenox *PHARMACY WT BASED*] 78 mg SQ Q12HR #10 vial Atorvastatin [Lipitor] 40 mg PO HS #30 tablet HYDROcodone/Acet 10/325 mg [[place] 10-325 mg] 1 each PO Q6H PRN 3 Days #12 tablet PRN Reason: Mild To Moderate Pain Warfarin [Coumadin] 4 mg PO DAILY #30 tablet Home Medications: Aspirin [Adult Low Dose Aspirin EC] 81 mg PO DAILY 07/30/15 [History] Cholecalciferol (Vitamin D3) [Vitamin D3] 2,000 unit PO DAILY 07/30/15 [History] Metoprolol [Lopressor] 50 mg PO BID 07/30/15 [History] Omeprazole [PriLOSEC] 20 mg PO BID 07/30/15 [History] Oxybutynin Chloride [Ditropan Xl] 10 mg PO DAILY 07/30/15 [History] Potassium Chloride [Klor-Con Sprinkle] 10 meq PO BID 07/30/15 [History] Docosahexanoic Acid/Epa [Fish Oil Concentrate Softgel] 1 each PO DAILY 08/31/15 [History] Losartan/Hydrochlorothiazide [Hyzaar 100-12.5 Tablet] 1 each PO DAILY 08/31/15 [ History] Milk Thistle Seed Extract [Milk Thistle] 1,000 mg PO DAILY 08/31/15 [History] Multivitamin [Multivitamins] 1 each PO DAILY 08/31/15 [History] Psyllium Husk [Fiber] 0.52 gm PO BID 08/31/15 [History] Oxygen 2 l NS AD PRN 10/25/16 [History] Lactobacillus Acidophilus [Acidophilus Probiotic] 1 mg PO DAILY 12/24/16 [ History] Estradiol [Estrace] 1 appl TP AD 09/12/17 [History] Atorvastatin [Lipitor] 40 mg PO HS #30 tablet 09/17/17 [Rx] Enoxaparin [Lovenox *PHARMACY WT BASED*] 78 mg SQ Q12HR #10 vial 09/17/17 [Rx] HYDROcodone/Acet 10/325 mg [[place] 10-325 mg] 1 each PO Q6H PRN 3 Days #12 tablet 09/17/17 [Rx] Warfarin [Coumadin] 4 mg PO DAILY #30 tablet 09/17/17 [Rx] Allergies/Adverse Reactions: 3 Allergy/AdvReac Type Severity Reaction Status Date / Time Barbiturates Allergy Rash Verified 09/11/17 09:51 Procedures/tests Complete & Pending: Procedures Performed prior 72 hours Category Date Time Status CL Cardiac Catheterization [CL] Routine Production Laborer 09/16/17 07:49 Completed Date of admission: 09/12/17 19:18 Primary care physician: Yahir Self MD Consults: 09/11/17 00:32 Consult to Physician [CONS] Routine Consulting Provider: Rashid Dutton Reason for Consult: sacral fracture Call Completed: No 09/11/17 00:33 Consult to Doubler Helper [CONS] Routine Reason for SW Consult: discharge planning 09/11/17 09:05 Consult to Occupational Therapy [CONS] Routine Comment: Evaluate, develop and implement POC Reason for Consult: therapy/placement needs Consult to Physical Therapy [CONS] Routine Comment: Evaluate, develop and implement POC Reason for Consult: PT eval 09/12/17 01:48 Consult to Cardiology [CONS] Routine Comment: Consulting Provider: Cardiology Karolina Reason for Consult: Elevated troponin from 0.04 to 1.4 Call Completed: Yes - Patient Status Disposition: Transfer SNF Condition: Fair Overall status at discharge: patient is progressing back to baseline - Discharge Instructions Follow Up With: Vance Deluna MD [Partnered Physician] - 09/19/17 1:50 pm Yahir Self MD [Primary Care Provider] - Byron Fatima Jr, MD [Partnered Physician] - (2 weeks) Additional Instructions: INR daily till INR is 2-3 - Diet and Activity Activity: as per physical therapy Diet: low salt diet Hospital course: Ms. Serra is a 82 year old female who presented as a transfer from [facility] ER for intractable pelvic and hip pain. She had imaging earlier ordered by her orthopedic physician. Imaging revealed bilateral sacral fracture. She was advised to go the ER for pain control and admission to the hospitalist service. She was admitted and seen by orthopedics who recommended follow-up as an outpatient and recommended conservative management. While hospitalized the patient had an episode of chest pain for which an EKG and troponins were checked. EKG came back with no concerning changes however troponins were noted to be elevated and they continue to trend up. Cardiology was consulted. She was started on a heparin drip as her Coumadin on admission was held due to supratherapeutic INR. She was taken for left heart catheterization which showed severe diffuse disease of the distal RPDA ( tortuous with small calibre/distribution vessel) and was considered a moderate risk for PTCA with mild benefit. She was optimized on cardiac medications. Her INR was not therapeutic on day of discharge and she will be discharged to rehabilitation with Lovenox and Coumadin bridging. He was stable for discharge on 09/17/2014 - Time Spent with Patient Total time spent providing and/or coordinating discharge services: Greater than 30 minutes - Constitutional Vitals: Temp Pulse Resp BP Pulse Ox 98.0 F 80 16 153/87 98 09/17/17 06:34 09/17/17 06:34 09/17/17 06:34 09/17/17 06:34 09/17/17 06:34 General appearance: Present: cooperative, mild distress, A&O X 3, pleasant Exam: GEN: NAD CVS: RRR. S1, S2, No m/r/g RESP: CTAB ABD: Soft, NT, ND, +BS EXT: No edema. 2+ DP. No rashes NEURO: Nonfocal - VTE Reasons for not Prescribing Prophylaxis: Not indicated-Anticoagulated or INR therapeutic Documentation of Mechanical Device: Intermittent pneumatic compression device
--- NOTE | 2017-09-17 07:56 | Physician Discharge Referral ---
ExtendedCare Referral Info Institutional Level of Care: Skilled - Diagnosis (1) NSTEMI (non-ST elevated myocardial infarction) Priority: Primary Status: Acute (2) Closed sacral fracture Priority: Primary Status: Acute (3) Muscle strain of right upper arm Priority: Primary Status: Acute (4) Atrial fibrillation Priority: Secondary Status: Chronic - Transfer Medications Prescriptions: Enoxaparin [Lovenox *PHARMACY WT BASED*] 78 mg SQ Q12HR #10 vial Atorvastatin [Lipitor] 40 mg PO HS #30 tablet HYDROcodone/Acet 10/325 mg [[place] 10-325 mg] 1 each PO Q6H PRN 3 Days #12 tablet PRN Reason: Mild To Moderate Pain Warfarin [Coumadin] 4 mg PO DAILY #30 tablet Home Medications: Aspirin [Adult Low Dose Aspirin EC] 81 mg PO DAILY 07/30/15 [History] Cholecalciferol (Vitamin D3) [Vitamin D3] 2,000 unit PO DAILY 07/30/15 [History] Metoprolol [Lopressor] 50 mg PO BID 07/30/15 [History] Omeprazole [PriLOSEC] 20 mg PO BID 07/30/15 [History] Oxybutynin Chloride [Ditropan Xl] 10 mg PO DAILY 07/30/15 [History] Potassium Chloride [Klor-Con Sprinkle] 10 meq PO BID 07/30/15 [History] Docosahexanoic Acid/Epa [Fish Oil Concentrate Softgel] 1 each PO DAILY 08/31/15 [History] Losartan/Hydrochlorothiazide [Hyzaar 100-12.5 Tablet] 1 each PO DAILY 08/31/15 [ History] Milk Thistle Seed Extract [Milk Thistle] 1,000 mg PO DAILY 08/31/15 [History] Multivitamin [Multivitamins] 1 each PO DAILY 08/31/15 [History] Psyllium Husk [Fiber] 0.52 gm PO BID 08/31/15 [History] Oxygen 2 l NS AD PRN 10/25/16 [History] Lactobacillus Acidophilus [Acidophilus Probiotic] 1 mg PO DAILY 12/24/16 [ History] Estradiol [Estrace] 1 appl TP AD 09/12/17 [History] Atorvastatin [Lipitor] 40 mg PO HS #30 tablet 09/17/17 [Rx] Enoxaparin [Lovenox *PHARMACY WT BASED*] 78 mg SQ Q12HR #10 vial 09/17/17 [Rx] HYDROcodone/Acet 10/325 mg [[place] 10-325 mg] 1 each PO Q6H PRN 3 Days #12 tablet 09/17/17 [Rx] Warfarin [Coumadin] 4 mg PO DAILY #30 tablet 09/17/17 [Rx] Allergies/Adverse Reactions: 3 Allergy/AdvReac Type Severity Reaction Status Date / Time Barbiturates Allergy Rash Verified 09/11/17 09:51 - Respiratory Orders Smoking Cessation: Smoking cessation has been advised. For more information, call the [place] Tobacco Quit Line at 4-741-APKL-NOW. - Lab Orders Lab Orders: Other (include drug levels w/frequency) (INR daily till INR 2-3) - Rehabiliation Orders Rehab Orders: Evaluation for Physical Therapy, Evaluation for Occupational Therapy - Treatments List/Other: Give lovenox daily till INR is 2-3 - Diet Orders Cardiac CERTIFICATION: I certify that the transfer of the above named patient to an Extended Care Facility is necessary for the continuing treatment of the diagnosis listed. The above information is true and accurate reflection of patient's current condition. Confidential - Redisclosure prohibited without a patient's written consent.
[2017-09-17] MEDS: *HR* HYDROcodone/Acet 10/325 mg TABLET PO PRN ×3 (09:28→22:45)
[2017-09-17] MEDS: Multivit/Ca/Min/Fe/FA 1 TAB TABLET PO SCH (09:28)
[2017-09-17] MEDS: Lactobacillus 1 EACH CAP.SPRINK PO SCH (09:28)
[2017-09-17] MEDS: Cholecalciferol (D-3) 1,000 UNIT TABLET PO SCH (09:28)
[2017-09-17] MEDS: Sennosides/Docusate Sodium TABLET PO SCH ×2 (09:29→22:44)
[2017-09-17] MEDS: Aspirin Enteric Coated 81 MG Tablet PO SCH (09:29)
[2017-09-17] MEDS: Isosorbide MONOnitrate (24 HR) 30 MG TAB.ER.24H PO SCH (09:30)
[2017-09-17] MEDS: *HR* Enoxaparin 80 MG/0.8 ML SYRINGE SQ SCH ×2 (11:02→17:55)
[2017-09-17] MEDS ORDERED: Ondansetron 4 MG/2 ML VIAL IVP ONE (17:51)
[2017-09-17] MEDS ORDERED: *HR* Enoxaparin 80 MG/0.8 ML SYRINGE SQ SCH (18:00)
[2017-09-17] MEDS ORDERED: *HR* Warfarin 3 MG TABLET PO ONE (18:00)
[2017-09-18] MEDS: *HR* HYDROcodone/Acet 10/325 mg TABLET PO PRN ×3 (04:56→17:19)
[2017-09-18] MEDS: *HR* Enoxaparin 80 MG/0.8 ML SYRINGE SQ SCH (04:56)
[2017-09-18 06:46] LABS: INR 1.8; Prothrombin Time 20.1 Seconds (9.4-12.1)
[2017-09-18] MEDS: Aspirin Enteric Coated 81 MG Tablet PO SCH (08:04)
[2017-09-18] MEDS: Cholecalciferol (D-3) 1,000 UNIT TABLET PO SCH (08:04)
[2017-09-18] MEDS: Multivit/Ca/Min/Fe/FA 1 TAB TABLET PO SCH (08:04)
[2017-09-18] MEDS: Sennosides/Docusate Sodium TABLET PO SCH (08:04)
[2017-09-18] MEDS: Lactobacillus 1 EACH CAP.SPRINK PO SCH (08:04)
[2017-09-18] MEDS: Isosorbide MONOnitrate (24 HR) 30 MG TAB.ER.24H PO SCH (08:04)
[2017-09-18 16:35] VITALS: BP 152/92
--- NOTE | 2017-09-18 17:15 | Internal Med Progress Note ---
Date of Encounter: 09/18/17 Time of Encounter: 14:00 - Assessment and plan (1) Closed sacral fracture Current Visit: Yes Status: Acute Assessment and plan: Orthopedic surgery consult appreciated, recommend nonsurgical conservative management at this time. Physical and occupational therapy. Outpatient follow- up with orthopedic/spine surgery. Patient is medically stable for discharge to intermediate today. Discharge paperwork and prescriptions were completed yesterday. Added a prescription for Imdur, which is a new medication per cardiology recommendations. Qualifiers: Encounter type: initial encounter Zone of sacrum fracture: unspecified portion of sacrum Qualified Code(s): S32.10XA - Unspecified fracture of sacrum , initial encounter for closed fracture (2) Muscle strain of right upper arm Current Visit: Yes Status: Acute Qualifiers: Encounter type: initial encounter Qualified Code(s): S46.911A - Strain of unspecified muscle, fascia and tendon at shoulder and upper arm level, right arm , initial encounter (3) NSTEMI (non-ST elevated myocardial infarction) Current Visit: Yes Status: Acute Assessment and plan: Noted to have chest pain with EKG changes and elevated serum troponin. Has been on anti-coagulation with IV heparin drip. Underwent left heart catheterization which showed moderate coronary artery disease, severe diffuse disease of distal RPDA, at risk for future PTCA, recommend aggressive medical management at this time. Continue aspirin, statin, Imdur, beta volodymyr. (4) Atrial fibrillation Current Visit: Yes Status: Chronic Qualifiers: Atrial fibrillation type: unspecified Qualified Code(s): I48.91 - Unspecified atrial fibrillation (5) Hypertension Current Visit: Yes Status: Chronic Qualifiers: Hypertension type: essential hypertension Qualified Code(s): I10 - Essential (primary) hypertension - Subjective Interval history: Feels well. No chest pain, shortness of breath, palpitations. Awaiting rehabilitation placement. - Constitutional Vitals: Temp Pulse Resp BP Pulse Ox 97.5 F L 86 18 152/92 92 09/18/17 16:33 09/18/17 16:33 09/18/17 16:33 09/18/17 16:33 09/18/17 16:33 General appearance: Present: cooperative, A&O X 3, answers questions appropriately - Respiratory Respiratory exam: Present: CTAB. Absent: accessory muscle use, rales, rhonchi, wheezes - Cardiovascular Cardiovascular exam: Present: RRR, +S1, +S2. Absent: diastolic murmur, gallop, rubs, systolic murmur Internal Medicine: Result - Labs CBC & Chem 7: 09/17/17 05:48 09/17/17 05:48 - ABG Interpretation ABG results: PT/INR, D-dimer PT 20.1 Seconds (9.4-12.1) H 09/18/17 06:00 - VTE Reasons for not Prescribing Prophylaxis: Not indicated-Anticoagulated or INR therapeutic Documentation of Mechanical Device: Intermittent pneumatic compression device Consult Discharge Plan - Plan Additional Instructions: INR daily till INR is 2-3 Referrals: Vance Deluna MD [Partnered Physician] - 09/19/17 1:50 pm Yahir Self MD [Primary Care Provider] - Byron Fatima Jr, MD [Partnered Physician] - 10/03/17 9:30 am () Ramon Agosto MD [Partnered Physician] - (Web request made) Prescriptions: Enoxaparin [Lovenox *PHARMACY WT BASED*] 78 mg SQ Q12HR #10 vial Atorvastatin [Lipitor] 40 mg PO HS #30 tablet HYDROcodone/Acet 10/325 mg [[place] 10-325 mg] 1 each PO Q6H PRN 3 Days #12 tablet PRN Reason: Mild To Moderate Pain Isosorbide MONOnitrate (24 HR) [Imdur] 30 mg PO DAILY #30 tab.er.24h Warfarin [Coumadin] 4 mg PO DAILY #30 tablet
[2017-09-18] MEDS ORDERED: *HR* Warfarin 3 MG TABLET PO ONE (18:00)
== END 2017-09-18 17:30 | DRG 281 ==
LOC: 3NENU → SUATTDRO 22:11
PROVIDERS: ADMIT Pediatrics; ATTEND Internal Medicine

== ENCOUNTER 2018-11-02 20:02 | Inpatient (IN) ==
[2018-11-03] MEDS ORDERED: Naloxone 0.4 MG/ML INJ IVP PRN (01:19)
[2018-11-03 02:38] LABS: Basophils % 0.2 %; Eosinophils # 0.2 K/mcL (0.0-0.6); Eosinophils % 1.3 %; Hematocrit 34.4 % (35.3-44.9); Hemoglobin 11.4 g/dL (11.5-15.4); Immature Granulocytes % 0.5 % (0-4); Lymphocytes # 1.6 K/mcL (0.6-4.6); Lymphocytes % 11.9 %; Mean Corpuscular HGB Conc 33.1 g/dL (31.6-35.5); Mean Corpuscular Hemoglobin 33.1 pg (28.0-33.3); Mean Platelet Volume 9.8 fL (9.4-12.4); Monocytes # 0.8 K/mcL (0.0-1.3); Monocytes % 6.3 %; Neutrophils # 10.5 K/mcL (1.6-8.9); Platelet Count 178 K/mcL (140-400); Red Blood Count 3.44 M/mcL (3.82-4.97); Red Cell Distribution Width 12.3 % (11.5-14.5); Segmented Neutrophils % 79.8 %
[2018-11-03 02:47] LABS: Activated Partial Thrombo Time 71.2 Seconds (26.0-36.0)
[2018-11-03 02:57] LABS: Albumin 2.9 g/dL (3.5-5.7); Bilirubin,Total 2.7 mg/dL (0.3-1.0); Calcium 9.3 mg/dL (8.6-10.3); Globulin 2.8 g/dL (2.4-3.5); Magnesium 1.6 mg/dL (1.6-2.6); Potassium 4.9 mEq/L (3.5-5.1); Total Protein 5.7 g/dL (6.4-8.9)
[2018-11-03 03:01] LABS: INR 14.3; Prothrombin Time 161.2 Seconds (9.4-12.1)
--- NOTE | 2018-11-03 06:14 | Internal Med History&Physical ---
Date of Encounter: 11/03/18 Time of Encounter: 00:50 Internal Medicine - H&P: HPI Chief complaint: Supratherapeutic INR Admitted From: Hospital to Hospital Transfer Plans for Post Hospital Care: Home History of present illness: Ms. Serra is a 83 year old female Patient presented to the emergency room at the [facility] for bruising and blisters in her right arm. She states that she fell on October 16 and landed on her left shoulder. She was seen in the emergency room at that time and the x- rays revealed no acute injury. She began having pain in her right arm as well a few days later. She is following with an orthopedic surgeon Dr. Deluna, who she last saw on October 28. They performed x-rays at that time and it was determined that she would require a right shoulder replacement however due to her cardiac history which includes atrial fibrillation, she was considered very high risk procedure. He started her on physical therapy, which she says that she does every day. Since beginning the physical therapy, she has had increased swelling throughout her entire right arm and bruises have begun to develop with some blister formation. She has had increased pain associated with this as well but denies numbness and tingling. With the associated pain she has difficulty moving the arm. She has tried putting on an ointment over the blisters but they persist. She denies previous history of right arm surgeries, but she does have a left shoulder replacement. She takes Coumadin for her atrial fibrillation, and says that her last INR about a month ago was normal. She typically follows up with the Coumadin clinic every month. She denies having a high INR before in the past. Patient's vital signs initially were within normal limits, CBC showed a white count of 17.9, platelet count of 221 and a hemoglobin of 12.3. Her INR was 13.6. Her sodium was 125, potassium 5.0, creatinine 1.63, and lactic acid was 1.2. A forearm CT was performed that showed no acute osseous abnormality however there was extensive subcutaneous fat stranding and skin thickening extending from the level of the distal humerus into the hand compatible with cellulitis versus sterile edema. There was no drainable fluid collection. There are also findings compatible with chronic supraspinatus and infraspinatus tendon tears. Due to her INR elevation, she was given 5 mg of vitamin K orally. It was felt that she had cellulitis given her elevated white count and skin findings and antibiotics were started. She received a dose of clindamycin prior to her transfer she was also given maintenance IV fluids at 125 mL/h. Blood cultures were drawn and she was transferred to [facility] for further management. Upon my evaluation, patient is resting in the hospital bed in mild distress. She does have continued pain in her right arm. It is obviously discolored. The nurse initially notified me regarding a lack of pulses being felt. On my evaluation, I confirmed that the patient did have distal radial pulses, and she did have intact sensation and motor function distally. She has bruising from the shoulder to her fingers, with several blood blister formation on the underside of her arm. She denies chest pain, abdominal pain, nausea, vomiting, diarrhea and constipation. We obtained stat labs upon her arrival. I also called on-call orthopedic surgery for further recommendations and management. I discussed with her CODE STATUS and she declared that she is a DNR/DNI. Her daughter is at bedside and confirms this. Past Med Surg Social Fam HX - Past Medical History Medical history: arthritis, atrial fibrillation, CHF, COPD, DVT, GERD, hepatitis, hypertension, myocardial infarction Additional medical history: HEP C, Psychiatric history: no psych history - Past Surgical History Surgical History: appendectomy, hysterectomy, pacemaker/AICD, other Additional surgical history: KNEE REP, LEFT SHOULDER REP - Social History Smoking Status: Former smoker Smokeless Tobacco Status: No Alcohol use: none Drug use: none - Family History Mother Adopted: [place]: SAMMI LEONARD Family Member Ethnicity: Non- Living Status: Hx Family Cardiac Disorders: Yes Hx Family Cancer: Yes (STOMACH) Internal Medicine - H&P: Meds Aspirin [Adult Low Dose Aspirin EC] 81 mg PO DAILY 07/30/15 [History] Cholecalciferol (Vitamin D3) [Vitamin D3] 2,000 unit PO DAILY 07/30/15 [History] Metoprolol [Lopressor] 50 mg PO BID 07/30/15 [History] Omeprazole [PriLOSEC] 20 mg PO BID 07/30/15 [History] Oxybutynin Chloride [Ditropan Xl] 10 mg PO DAILY 07/30/15 [History] Potassium Chloride [Klor-Con Sprinkle] 10 meq PO BID 07/30/15 [History] Docosahexanoic Acid/Epa [Fish Oil Concentrate Softgel] 1 each PO DAILY 08/31/15 [History] Losartan/Hydrochlorothiazide [Hyzaar 100-12.5 Tablet] 1 each PO DAILY 08/31/15 [History] Milk Thistle Seed Extract [Milk Thistle] 1,000 mg PO DAILY 08/31/15 [History] Multivitamin [Multivitamins] 1 each PO DAILY 08/31/15 [History] Psyllium Husk [Fiber] 0.52 gm PO BID 08/31/15 [History] Oxygen 2 l NS AD PRN 10/25/16 [History] Lactobacillus Acidophilus [Acidophilus Probiotic] 1 mg PO DAILY 12/24/16 [History] Estradiol [Estrace] 1 appl TP AD 09/12/17 [History] Atorvastatin [Lipitor] 40 mg PO HS #30 tablet 09/17/17 [Rx] HYDROcodone/Acet 10/325 mg [[place] 10-325 mg] 1 each PO Q6H PRN 3 Days #12 tablet 09/17/17 [Rx] Warfarin [Coumadin] 4 mg PO DAILY #30 tablet 09/17/17 [Rx] Isosorbide MONOnitrate (24 HR) [Imdur] 30 mg PO DAILY #30 tab.er.24h 09/18/17 [Rx] Warfarin [Coumadin] 3.2 mg PO 1800 11/03/18 [History] Allergy/AdvReac Type Severity Reaction Status Date / Time Barbiturates Allergy Rash Verified 09/11/17 09:51 All Systems PM: A 10-system review of systems was performed and is negative for pertinent findings except as documented above in the HPI. - Constitutional Vitals: Temp Pulse Resp BP Pulse Ox 97.7 F 79 18 104/56 93 11/03/18 03:56 11/03/18 03:56 11/03/18 03:56 11/03/18 03:56 11/03/18 03:56 General appearance: Present: cooperative, mild distress, A&O X 3, pleasant, answers questions appropriately. Absent: disheveled Exam: - - Head Head exam: Present: normal inspection - Eye Eye exam: Present: EOMI, normal appearance - Respiratory Respiratory exam: Present: CTAB. Absent: rales, respiratory distress, rhonchi, wheezes - Cardiovascular Cardiovascular exam: Present: RRR. Absent: diastolic murmur, systolic murmur - GI/Abdominal GI/Abdominal exam: Present: normal bowel sounds, soft. Absent: tenderness - Extremities Exam Extremities exam: Present: tenderness, warm, radial pulses palpable and symmetrical. Absent: calf tenderness, full ROM, normal inspection, pedal edema Additional comments: Right arm from shoulder to fingers is swollen, purple and ecchymotic. There is a well demarcated ecchymotic line at the shoulder joint. There are a few intact blisters on the underside of the patient's arm. The skin is morphologically pitted. Pulses were felt, and capillary refill was less than 2 seconds. Patient does have sensation in her fingers and can move her hand. Movement at the elbow and shoulder causes pain however. Patient's left arm has no bruising or swelling, pulses felt in sensation and range of motion at baseline. - Neurological Exam Neurological exam: Present: no focal deficits. Absent: motor sensory deficit, strengths equal and symetr throughout, facial droop, speech deficit Additional comments: Strength unequal secondary to pain in the right arm - Skin Skin exam: Present: dry, erythema, warm. Absent: normal color Additional comments: Please see description above of right arm morphology Internal Med - H&P Results - Labs CBC & Chem 7: 11/03/18 01:57 11/03/18 01:57 Labs: Short CBC 11/03/18 Range/Units 01:57 WBC 13.2 H (4.3-11.1) K/mcL Hgb 11.4 L (11.5-15.4) g/dL Hct 34.4 L (35.3-44.9) % Plt Count 178 (140-400) K/mcL Neutrophils # 10.5 H (1.6-8.9) K/mcL BMP 11/03/18 01:57 Sodium 129 L Potassium 4.9 Chloride 97 L Carbon Dioxide 24 BUN 40 H Creatinine 1.13 Glucose 87 Calcium 9.3 Liver Function 11/03/18 Range/Units 01:57 Total Bilirubin 2.7 H (0.3-1.0) mg/dL AST 28 (13-39) Units/L ALT 17 (7-52) Units/L Alkaline Phosphatase 126 H (34-104) Units/L Albumin 2.9 L (3.5-5.7) g/dL - Assessment and Plan (1) Supratherapeutic INR Current Visit: No Status: Acute Assessment and plan: Patient's INR was 13.6 initially in the emergency room. On recheck it had increased to 14.3. She did receive 5 mg of oral vitamin K. I had initial concerns for compartment syndrome prior to my examination as the nurse indicated that he had difficulties feeling pulses. I was able to feel pulses, patient's sensation is intact. Despite this I did contact orthopedic surgery and discussed the case with Dr. Martin. He agreed to see the patient in the morning. Giving additional dose of vitamin K IV 10 mg Giving 1 unit of FFP Recheck INR in 6 hours Monitor hemoglobin every 6 hours Patient typed and screened, transfuse if indicated. Hold additional doses of warfarin Patient may need additional doses of vitamin K and FFP pending INR response. Follow-up orthopedic surgery consultation, appreciate recommendations Pain management as needed (2) Cellulitis Current Visit: No Status: Acute Assessment and plan: Based on patient's imaging results as well as elevated white blood count, patient potentially could have cellulitis. She was given a dose of ciprofloxacin prior to her arrival. Blood cultures were not drawn however. Most of her swelling and the fluid seen could be related to bleeding however there is possibility for infection as well. We will consult infectious disease. Obtain blood cultures Start vancomycin Monitor for worsening signs of infection Infectious disease consult Qualifiers: Site of cellulitis: extremity Site of cellulitis of extremity: upper extremity Laterality: right Qualified Code(s): L03.113 - Cellulitis of right upper limb (3) Rotator cuff arthropathy Current Visit: No Status: Acute Assessment and plan: Patient does have some tears of the rotator cuff noted on imaging. Patient evaluated by orthopedic surgeon Dr. Deluna who indicated that she would be high risk for surgery. Physical therapy has been attempted. Additional input from orthopedic surgery appreciated Continue to monitor Qualifiers: Laterality: right Qualified Code(s): M75.101 - Unspecified rotator cuff tear or rupture of right shoulder, not specified as traumatic; M12.811 - Other specific arthropathies, not elsewhere classified, right shoulder (4) Atrial fibrillation Current Visit: No Status: Chronic Assessment and plan: Holding warfarin, patient's rate currently controlled Qualifiers: Atrial fibrillation type: unspecified Qualified Code(s): I48.91 - Unspecified atrial fibrillation (5) DVT prophylaxis Current Visit: No Status: Acute Assessment and plan: Hold warfarin, secondary to supratherapeutic INR - Time Spent With Patient Total time spent is greater than 50% in coordination of care (as documented) at patient's floor/unit and/or counseling patient: Greater than 35 minutes
[2018-11-03] MEDS: OXYCODONE Oral CONC 10 MG/0.5 ML ORAL.SYG SL PRN ×2 (06:43→22:08)
--- NOTE | 2018-11-03 07:26 | Orthopedic Consult Note ---
Date of Encounter: 11/03/18 Time of Encounter: 07:17 History of Present Illness Chief complaint: Right arm pain and swelling HPI: Ms. Serra is a 83 year old [id number] female who sustained a fall on 10/16/2018. Patient was seen and had x-rays taken of the left shoulder that revealed no evidence of fracture patient had a stable reverse ball total shoulder arthroplasty.. Patient however developed increasing pain and swelling with discoloration of the right upper extremity. Patient had recheck x-rays of the right shoulder on 10/28/2018. This did not reveal any evidence of acute fractures or dislocations. Patient developed increased pain and swelling with marked ecchymosis of the upper extremity. She presented again to the emergency room on 11/02/2018 ([facility]) were CT scan of the upper arm was performed. This did not reveal any evidence of a fracture but did reveal extensive soft tissue swelling. Patient was admitted to [facility] in the late evening of 2417 with a markedly elevated INR and pro time with the noted swelling and ecchymosis in the upper arm. Patient denies neurovascular complaints. I reviewed patient's completed history and physical examination as well as the medical record. Physical examination reveals a pleasant 83-year-old woman in no acute distress while lying in the hospital bed. Examination of the upper extremity reveals a well-healed demarcated line at the shoulder with extensive ecchymosis distal. The compartments are soft. There is dependent (posterior) edema in both the upper and lower arm. There are skin wrinkles present. Motion of the fingers is intact. Neurovascular exam is likewise intact. I reviewed x-rays of bilateral shoulders from [facility]. Left shoulder from 10/16/2018 reveals a stable reverse ball total shoulder arthroplasty without complicating features. X-rays of the right shoulder from 1918 reveals some arthritic changes of the glenohumeral joint and the acromioclavicular joint without acute fractures or dislocations. CT scan of the right humerus from 11/02/2018 reveals humeral acromial articulation without evidence of an acute fracture or dislocation. These findings are consistent with a rotator cuff arthropathy. Soft tissue imaging reveals marked amount of fluid in the subcutaneous tissue without excessive distention of the intermuscular compartments. Right forearm CT reveals similar findings with extensive soft tissue involvement in the subcutaneous level without evidence of increased compartment size. Hemoglobin is 11.4. Lately count is normal. PTT was 161.2 with an INR of 14.3. Impression: Right rotator cuff arthropathy with right upper extremity soft tissue bleed secondary to coagulopathy Recommendation: At this time I do not see any need for surgical intervention. Need to reverse the coagulopathy. Elevate the extremity and continue with close monitoring. No indication for intracompartmental pressure monitoring without signs of a compartment syndrome. Thank you very much for allowing me to seen care for Mrs. Serra. Sincerely, Lalito Martin,DO Past Med Surg Social Fam HX - Past Medical History Medical history: arthritis, atrial fibrillation, CHF, COPD, DVT, GERD, hepatitis, hypertension, myocardial infarction Additional medical history: HEP C, Psychiatric history: no psych history - Past Surgical History Surgical History: appendectomy, hysterectomy, pacemaker/AICD, other Additional surgical history: KNEE REP, LEFT SHOULDER REP - Social History Smoking Status: Former smoker Smokeless Tobacco Status: No Alcohol use: none Drug use: none - Family History Mother Adopted: [place]: SAMMI LEONARD Family Member Ethnicity: Non- Living Status: Hx Family Cardiac Disorders: Yes Hx Family Cancer: Yes (STOMACH) Medications and Allergies Aspirin [Adult Low Dose Aspirin EC] 81 mg PO DAILY 07/30/15 [History] Cholecalciferol (Vitamin D3) [Vitamin D3] 2,000 unit PO DAILY 07/30/15 [History] Metoprolol [Lopressor] 50 mg PO BID 07/30/15 [History] Omeprazole [PriLOSEC] 20 mg PO BID 07/30/15 [History] Oxybutynin Chloride [Ditropan Xl] 10 mg PO DAILY 07/30/15 [History] Potassium Chloride [Klor-Con Sprinkle] 10 meq PO BID 07/30/15 [History] Docosahexanoic Acid/Epa [Fish Oil Concentrate Softgel] 1 each PO DAILY 08/31/15 [History] Losartan/Hydrochlorothiazide [Hyzaar 100-12.5 Tablet] 1 each PO DAILY 08/31/15 [History] Milk Thistle Seed Extract [Milk Thistle] 1,000 mg PO DAILY 08/31/15 [History] Multivitamin [Multivitamins] 1 each PO DAILY 08/31/15 [History] Psyllium Husk [Fiber] 0.52 gm PO BID 08/31/15 [History] Oxygen 2 l NS AD PRN 10/25/16 [History] Lactobacillus Acidophilus [Acidophilus Probiotic] 1 mg PO DAILY 12/24/16 [History] Estradiol [Estrace] 1 appl TP AD 09/12/17 [History] Atorvastatin [Lipitor] 40 mg PO HS #30 tablet 09/17/17 [Rx] HYDROcodone/Acet 10/325 mg [[place] 10-325 mg] 1 each PO Q6H PRN 3 Days #12 tablet 09/17/17 [Rx] Warfarin [Coumadin] 4 mg PO DAILY #30 tablet 09/17/17 [Rx] Isosorbide MONOnitrate (24 HR) [Imdur] 30 mg PO DAILY #30 tab.er.24h 09/18/17 [Rx] Warfarin [Coumadin] 3.2 mg PO 1800 11/03/18 [History] Allergy/AdvReac Type Severity Reaction Status Date / Time Barbiturates Allergy Rash Verified 09/11/17 09:51 All Systems Reviewed: The remainder of the systems were reviewed and are negative Physical Exam - Constitutional Vitals: Temp Pulse Resp BP Pulse Ox 97.8 F 82 16 106/67 96 11/03/18 06:49 11/03/18 06:49 11/03/18 06:49 11/03/18 06:49 11/03/18 06:49 Results - Labs Result Diagrams: 11/03/18 01:57 11/03/18 01:57 Labs: Abnormal lab results WBC 13.2 K/mcL (4.3-11.1) H 11/03/18 01:57 RBC 3.44 M/mcL (3.82-4.97) L 11/03/18 01:57 Hgb 11.4 g/dL (11.5-15.4) L 11/03/18 01:57 Hct 34.4 % (35.3-44.9) L 11/03/18 01:57 Neutrophils # 10.5 K/mcL (1.6-8.9) H 11/03/18 01:57 PT 161.2 Seconds (9.4-12.1) H* 11/03/18 01:57 INR 14.3 H* 11/03/18 01:57 APTT 71.2 Seconds (26.0-36.0) H 11/03/18 01:57 Sodium 129 mEq/L (136-145) L 11/03/18 01:57 Chloride 97 mEq/L (98-107) L 11/03/18 01:57 BUN 40 mg/dL (8-23) H 11/03/18 01:57 Est GFR ( Amer) 56 (> 60) L 11/03/18 01:57 Est GFR (Non-Af Amer) 46 (> 60) L 11/03/18 01:57 BUN/Creatinine Ratio 35 (6-26) H 11/03/18 01:57 Calculated Osmolality 277 (280-300) L 11/03/18 01:57 Total Bilirubin 2.7 mg/dL (0.3-1.0) H 11/03/18 01:57 Alkaline Phosphatase 126 Units/L (34-104) H 11/03/18 01:57 Serum Total Protein 5.7 g/dL (6.4-8.9) L 11/03/18 01:57 Albumin 2.9 g/dL (3.5-5.7) L 11/03/18 01:57 Albumin/Globulin Ratio 1.0 (1.1-2.2) L 11/03/18 01:57 H & H 11/03/18 Range/Units 01:57 Hgb 11.4 L (11.5-15.4) g/dL Hct 34.4 L (35.3-44.9) % All other labs normal. - Diagnostic results Shoulder x-ray: image reviewed Shoulder CT: image reviewed Consult Discharge Plan - Plan Referrals: NONE,PCP [Primary Care Provider] -
--- NOTE | 2018-11-03 09:47 | Internal Med Progress Note ---
<Mona Parsons - Last Filed: 11/03/18 14:29> Hospitalist Progress Note - Encounter Date of Encounter: 11/03/18 - Exam Vitals: Temp Pulse Resp BP Pulse Ox 98.1 F 80 16 126/62 97 11/03/18 10:39 11/03/18 10:39 11/03/18 10:39 11/03/18 10:39 11/03/18 10:39 - Time Spent with Patient Total time spent is greater than 50% in coordination of care (as documented) at patient's floor/unit and/or counseling patient: Internal Medicine: Result - Labs CBC & Chem 7: 11/03/18 12:19 11/03/18 01:57 Labs: Short CBC 11/03/18 11/03/18 Range/Units 01:57 12:19 WBC 13.2 H 14.3 H (4.3-11.1) K/mcL Hgb 11.4 L 12.4 (11.5-15.4) g/dL Hct 34.4 L 36.1 (35.3-44.9) % Plt Count 178 224 (140-400) K/mcL Neutrophils # 10.5 H (1.6-8.9) K/mcL BMP 11/03/18 01:57 Sodium 129 L Potassium 4.9 Chloride 97 L Carbon Dioxide 24 BUN 40 H Creatinine 1.13 Glucose 87 Calcium 9.3 Liver Function 11/03/18 11/03/18 Range/Units 01:57 12:19 Total Bilirubin 2.7 H 3.4 H (0.3-1.0) mg/dL Direct Bilirubin 1.8 H (0.0-0.2) mg/dL AST 28 32 (13-39) Units/L ALT 17 18 (7-52) Units/L Alkaline Phosphatase 126 H 141 H (34-104) Units/L Albumin 2.9 L 3.5 (3.5-5.7) g/dL - ABG Interpretation ABG results: PT/INR, D-dimer PT 26.8 Seconds (9.4-12.1) H D 11/03/18 12:19 Consult Discharge Plan - Plan Referrals: NONE,PCP [Primary Care Provider] - - Attending Attestation I examined this patient and my medical decision-making was reviewed with the Resident Physician Dr Alcantar. I agree with the documented findings, disposition and treatment plan as described except to the extent set forth below. Ms Serra is being observed for supratherapeutic INR with soft tissue bleeding in the RUE awake, pel[place], resident at bedside. no pain currently, can move ext and no nubness/tingling or change in warmth. no rich, vision changes. no fevers or chills gen- alert, awake,appears stated age cv- reg rate and rhythm, normal s1,s2, no murmurs appreciated, radial pulses 2+, cap refill RUE normal lungs- ctabl, no wheezing, rhonchi or crackles, normal resp effort skin- extensive ecchymosis RUE from shoulder to finger tips, small pinpoint drops of blood oozing from skin, area of ecchymosis LUE near deltoid, venous stasis changes BL LE msk- rue wrist and finger rom is intact neuro- AAOx3, CN grossly intact, RUE sensation to light touch intact Supratherapeutic INR 14.3-s/p Vit K 15 and FFP, inr now 2.4, further vit K to get below 2, scds only, serial h/hs thus far stable RUE pain and edema- 2/2 most likley soft tissue bleed 2/2 above, cannot rule out cellulitis on CT imaging + leukocytosis- tx as above, ortho following, not compartment syndrome at this time, cont neuro vasc checks, cont vanc, ID c onsulted on admit afib, currently NSR- hold warfarin chronic hyponatremia, no cognitive deficits, stable- fu outpt for further monitoring/work up Hep C hx- given she has low protein, mildly elevated alk phos, t bili (which she has had in past) and elevated INR without identifiable cause- will watch cmp and may obtain CT scan of liver to assure no mass given her hep c history , pt can't have mris due to device further diagnoses and plan as per resident <Antonio Alcantar N - Last Filed: 11/03/18 16:36> Hospitalist Progress Note - Encounter Date of Encounter: 11/03/18 Time of Encounter: 09:00 - Subjective Interval History: Patient seen and examined at bedside this morning. Her arm is swollen and tender. She denies any other complaints. Currently has fresh frozen plasma infusing through her IV. Denies any chest pain or shortness of breath or tachycardia. - Exam Vitals: Temp Pulse Resp BP Pulse Ox 97.9 F 78 16 127/82 87 11/03/18 08:56 11/03/18 08:56 11/03/18 08:56 11/03/18 08:56 11/03/18 08:41 Exam: Constitutional: Resting comfortably in bed, no acute distress HEENT: Head is atraumatic and normocephalic. Pupils equal and round. Extrao cular muscles intact. No facial asymmetry, no dysarthria. No oral pharyngeal lesions. External ears and nares patent. Neck: No JVD, trachea midline Chest: Symmetrical chest rise, no tenderness to palpation cardioascular: 2/6 systolic murmur present. Regular rate and rhythm. Respiratory: Clear to auscultation bilaterally, no rales rhonchi or wheezing Abdomen: Soft, nontender, no guarding rigidity Extremities: The right upper extremity is swollen and discolored throughout. There is seeping serosanguineous fluid noted. It is exquisitely tender to touch. The left upper extremity has multiple ecchymosis. Both upper extremity's are neurovascularly intact. Neurological: Alert and oriented 3, no obvious focal neurological deficits Psych: Appropriate mood and affect. - Assessment and Plan (1) Supratherapeutic INR Current Visit: No Status: Acute Assessment and Plan: -Patient presented with supratherapeutic INR as high as 14.3 -She received a total of 15 mg vitamin K and 1 unit fresh frozen plasma -Her INR today did decrease to 2.4 and her hemoglobin has stayed stable at baseline -Orthopedic consultation evaluated the patient and did not feel that there was a need for continuous compartment syndrome monitoring, patient is neurovascularly intact Plan: -Continue to monitor hemoglobin every 6 hours -We will give 5 mg of vitamin K -Follow-up INR in the morning -Continue to monitor for bleeding (2) Cellulitis Current Visit: No Status: Acute Assessment and Plan: -Imaging results concerning for cellulitis -Patient has a elevated white blood cell count -Received antibiotics prior to transfer -Infectious disease consultation Plan: -Continue vancomycin -Currently hemodynamically stable (3) Chronic hepatitis Current Visit: No Status: Chronic Assessment and Plan: -Patient has history of chronic hepatitis C -This may be an etiology behind patient's supratherapeutic INR on Coumadin -Hepatic panel does reveal elevated total bilirubin of 3.4, with direct bilirubin 1.8 indirect 1.6. However, this may be secondary to increased red blood cell turnover in the setting of supratherapeutic INR and bleeding Plan: -We will consider further evaluation with CT abdomen and pelvis to evaluate for hepatic disease -Continue to monitor CMP (4) Rotator cuff arthropathy Current Visit: No Status: Acute Assessment and Plan: -Rotator cuff tears noted on imaging -Not a surgical candidate at this time due to severely supratherapeutic INR -Has some pain in the right shoulder Plan: -Will follow-up outpatient (5) Atrial fibrillation Current Visit: No Status: Chronic Assessment and Plan: -Currently holding warfarin due to supratherapeutic INR (6) DVT prophylaxis Current Visit: No Status: Acute Assessment and Plan: -Currently holding warfarin -Foot pumps - Time Spent with Patient Total time spent is greater than 50% in coordination of care (as documented) at patient's floor/unit and/or counseling patient: Internal Medicine: Result - Labs CBC & Chem 7: 11/03/18 15:56 11/03/18 01:57 Labs: Short CBC 11/03/18 Range/Units 01:57 WBC 13.2 H (4.3-11.1) K/mcL Hgb 11.4 L (11.5-15.4) g/dL Hct 34.4 L (35.3-44.9) % Plt Count 178 (140-400) K/mcL Neutrophils # 10.5 H (1.6-8.9) K/mcL BMP 11/03/18 01:57 Sodium 129 L Potassium 4.9 Chloride 97 L Carbon Dioxide 24 BUN 40 H Creatinine 1.13 Glucose 87 Calcium 9.3 Liver Function 11/03/18 Range/Units 01:57 Total Bilirubin 2.7 H (0.3-1.0) mg/dL AST 28 (13-39) Units/L ALT 17 (7-52) Units/L Alkaline Phosphatase 126 H (34-104) Units/L Albumin 2.9 L (3.5-5.7) g/dL - ABG Interpretation ABG results: PT/INR, D-dimer PT 161.2 Seconds (9.4-12.1) H* 11/03/18 01:57 <Antonio Alcantar N - Last Filed: 11/03/18 16:36> (2) Cellulitis Qualifiers: Site of cellulitis: extremity Site of cellulitis of extremity: upper extremity Laterality: right Qualified Code(s): L03.113 - Cellulitis of right upper limb (4) Rotator cuff arthropathy Qualifiers: Laterality: right Qualified Code(s): M75.101 - Unspecified rotator cuff tear or rupture of right shoulder, not specified as traumatic; M12.811 - Other specific arthropathies, not elsewhere classified, right shoulder (5) Atrial fibrillation Qualifiers: Atrial fibrillation type: chronic Qualified Code(s): I48.2 - Chronic atrial fibrillation
--- NOTE | 2018-11-03 11:37 | Infectious Disease Consult ---
Date of Encounter: 11/03/18 Time of Encounter: 11:30 Assessment and Plan (1) Cellulitis Status: Acute Assessment and plan: Location: Right upper extremity. Cellulitis versus sterile edema. Ecchymosis skews the patient's clinical picture, but so not sure that this is necessarily a cellulitis versus ecchymosis from her coagulopathy. CT of the right upper extremity nonrevealing for acute osseous abnormality or abscess. Orthopedics consult. Appreciate recommendations. Given the clinical picture, feel that her skin changes are more likely related to edema and ecchymosis than cellulitis. Currently on vancomycin. Recommendations: Await blood cultures. Continue to trend WBC. Discontinue Vancomycin. Start doxycycline 100mg PO BID. Duration of treatment depends on the clinical picture, but likely 5-7 days. Monitor renal function and dose-adjust antibiotics. No further recommendations from the ID team. We will sign off. Please re-consult if needed. Qualifiers: Site of cellulitis: extremity Site of cellulitis of extremity: upper extremity Laterality: right Qualified Code(s): L03.113 - Cellulitis of right upper limb (2) Supratherapeutic INR Status: Acute Assessment and plan: INR elevated at 13.6 on admission. Etiology: Unclear. Patient states she has been taking her Coumadin exactly as prescribed. LFTs pre-much normal. Abdominal exam benign. Further workup and management per the primary team. (3) Atrial fibrillation Status: Chronic Qualifiers: Atrial fibrillation type: chronic Qualified Code(s): I48.2 - Chronic atrial fibrillation (4) COPD (chronic obstructive pulmonary disease) Status: Chronic Qualifiers: COPD type: unspecified COPD Qualified Code(s): J44.9 - Chronic obstructive pulmonary disease, unspecified (5) Chronic hepatitis Status: Chronic Assessment and plan: Known hepatitis C positive. (6) Hypertension Status: Chronic Qualifiers: Hypertension type: essential hypertension Qualified Code(s): I10 - Essential (primary) hypertension Infectious Disease HPI - Data of Consult Patient: new to practice Consult date: 11/03/18 Requesting Physician: Mona Parsons Primary Care Provider: PCP NONE - Consult Narrative Reason for consult: Right arm cellulitis History of present illness: Ms. Serra is a 83 year old female with a past medical history of A. fib currently on Coumadin, CHF, COPD, DVT, GERD, hepatitis C, hypertension, NE, and remote history of pacemaker placement. The patient was admitted to the hospital 11/02/18 for right upper extremity swelling and coagulopathy. We are consulted 11/03/18 for right upper extremity cellulitis. Briefly, the patient is an 83-year-old female with past medical history as stated above. The patient sustained a fall back on 10/16/18 and injured her left shoulder. She was seen in the ER and x-rays were negative. A couple of days later, she developed some right shoulder bruising and pain so she was evaluated by her primary care provider who recommended she see orthopedics. She was seen by Dr. Deluna on 10/28/18 and had x-rays of the right shoulder that were negative for acute abnormality. She had persistent swelling that resulted in development of some blisters the underside of her right forearm so she presented to the emergency department for evaluation. Upon arrival, she was afebrile and hemodynamically stable. She did have a leukocytosis with normal differential. Her serum creatinine was mildly elevated at 1.63. Lactic acid was normal. INR was elevated at 13.6. CT of the right forearm and humerus showed findings consistent with cellulitis versus sterile edema. She was transferred here for further evaluation and treatment. Since admission, the patient has remained afebrile hemodynamically dynamically stable. Her leukocytosis has improved. Her acute kidney injury has resolved. Her INR remains elevated at 14.3. Was mildly elevated at 126, but otherwise her LFTs were normal. Blood cultures are pending 2 sets. Orthopedics was consulted who does not recommend any surgical intervention at this time. Currently, she is on IV vancomycin. We have been asked to evaluate and make further recommendations. During my exam today, the patient endorses a history as stated above. She denies any fevers or chills or rigors. Denies any headache or neck pain. Reports some sore throat last week, but states this has resolved. Denies any congestion or earache or sore throat at this time. Denies any chest pain, shortness of breath, or cough. Denies nausea, vomiting, diarrhea, or constipation. Denies abdominal pain or urinary complaints. States her appetite has been okay, but she has lost about 20 pounds in the last 6 months. She denies any oral thrush or skin lesions except as previously mentioned. The patient lives at home with her . She is retired. She denies any tobacco, alcohol, or illicit drug use. She is known hep C positive, mechanism of contraction unclear. She denies any other infectious diseases. She denies any recent travel. She does have a dog and a cat at home, but denies any bites or scratches. CC: Mona Parsons Past Med Surg Social Fam HX - Past Medical History Attestation: Yes The following information was validated with the patient. Source: patient, old records reviewed, nursing notes reviewed Medical history: arthritis, atrial fibrillation, CHF, COPD, DVT, GERD, hepatitis, hypertension, myocardial infarction Additional medical history: HEP C, Psychiatric history: no psych history - Past Surgical History Surgical History: appendectomy, hysterectomy, pacemaker/AICD, other Additional surgical history: KNEE REP, LEFT SHOULDER REP - Social History Smoking Status: Former smoker Smokeless Tobacco Status: No Alcohol use: none Drug use: none Occupational status: retired Current living situation: Home, With Family Activity Level: Uses cane/walker Recent Out of Country Travel Within the Last 8 Weeks: No Exposure or Possible Exposure to Illness During Travel: No - Family History Mother Adopted: [place]: SAMMI LEONARD Family Member Ethnicity: Non- Living Status: Hx Family Cardiac Disorders: Yes Hx Family Cancer: Yes (STOMACH) Infectious Disease-CN:Meds RX: Aspirin [Adult Low Dose Aspirin EC] 81 mg PO DAILY 07/30/15 [History] RX: Cholecalciferol (Vitamin D3) [Vitamin D3] 2,000 unit PO DAILY 07/30/15 [History] RX: Metoprolol [Lopressor] 50 mg PO BID 07/30/15 [History] RX: Omeprazole [PriLOSEC] 20 mg PO BID 07/30/15 [History] RX: Oxybutynin Chloride [Ditropan Xl] 10 mg PO DAILY 07/30/15 [History] RX: Potassium Chloride [Klor-Con Sprinkle] 10 meq PO BID 07/30/15 [History] RX: Docosahexanoic Acid/Epa [Fish Oil Concentrate Softgel] 1 each PO DAILY 08/31/15 [History] RX: Losartan/Hydrochlorothiazide [Hyzaar 100-12.5 Tablet] 1 each PO DAILY 08/31/15 [History] RX: Milk Thistle Seed Extract [Milk Thistle] 1,000 mg PO DAILY 08/31/15 [History] RX: Multivitamin [Multivitamins] 1 each PO DAILY 08/31/15 [History] RX: Psyllium Husk [Fiber] 0.52 gm PO BID 08/31/15 [History] RX: Oxygen 2 l NS AD PRN 10/25/16 [History] RX: Lactobacillus Acidophilus [Acidophilus Probiotic] 1 mg PO DAILY 12/24/16 [History] RX: Estradiol [Estrace] 1 appl TP AD 09/12/17 [History] RX: Atorvastatin [Lipitor] 40 mg PO HS #30 tablet 09/17/17 [Rx] RX: HYDROcodone/Acet 10/325 mg [[place] 10-325 mg] 1 each PO Q6H PRN 3 Days #12 tablet 09/17/17 [Rx] RX: Warfarin [Coumadin] 4 mg PO DAILY #30 tablet 09/17/17 [Rx] RX: Isosorbide MONOnitrate (24 HR) [Imdur] 30 mg PO DAILY #30 tab.er.24h 09/18/17 [Rx] RX: Warfarin [Coumadin] 3.2 mg PO 1800 11/03/18 [History] Allergy/AdvReac Type Severity Reaction Status Date / Time Barbiturates Allergy Rash Verified 09/11/17 09:51 All systems: reviewed and no additional remarkable complaints except as stated Exam - Constitutional Vitals: Temp Pulse Resp BP Pulse Ox 98.1 F 80 16 126/62 97 11/03/18 10:39 11/03/18 10:39 11/03/18 10:39 11/03/18 10:39 11/03/18 10:39 General appearance: average body habitus, cooperative, no acute distress - Head Head exam: Present: atraumatic, normal inspection, normocephalic - Eye Eye exam: Present: EOMI, normal appearance, PERRL Pupils: Present: normal accommodation - ENT ENT exam: Present: mucous membranes moist - Neck Neck exam: Present: normal inspection - Respiratory Respiratory exam: Present: CTAB. Absent: rales, respiratory distress, rhonchi, wheezes - Cardiovascular Cardiovascular exam: Present: irregular rhythm, +S1, +S2. Absent: tachycardia - GI/Abdominal GI/Abdominal exam: Present: normal bowel sounds, soft. Absent: distended, tenderness - Extremities Exam Extremities exam: Absent: normal inspection (Ecchymosis and erythema noted to the right upper extremity with some superficial bullous lesions noted to the underside of the right forearm. Mild warmth to touch. No purulent drainage. Range of motion of the right shoulder limited due to pain. No erythema or warmth or tenderness noted in the right shoulder.) - Neurological Exam Neurological exam: Present: alert, oriented X3, no focal deficits - Psychiatric Psychiatric exam: Present: normal affect, normal mood - Skin Skin exam: Present: dry, intact, normal color, warm Infectious Disease CN: Results - Labs CBC & Chem 7: 11/03/18 15:56 11/03/18 01:57 Cultures: Cultures 11/03/18 02:28 Blood Culture - Preliminary Peripheral Venipuncture Culture is incubating and being continuously monitored for growth. Final report to follow. 11/03/18 01:57 Blood Culture - Preliminary Peripheral Venipuncture Culture is incubating and being continuously monitored for growth. Final report to follow. Serology: Serology 11/03/18 11/03/18 11/03/18 Range/Units 01:57 01:57 01:57 WBC 13.2 H (4.3-11.1) K/mcL RBC 3.44 L (3.82-4.97) M/mcL Hgb 11.4 L (11.5-15.4) g/dL Hct 34.4 L (35.3-44.9) % MCV 100.0 (83.0-100.0) fL MCH 33.1 (28.0-33.3) pg MCHC 33.1 (31.6-35.5) g/dL RDW 12.3 (11.5-14.5) % Plt Count 178 (140-400) K/mcL MPV 9.8 (9.4-12.4) fL Immature Gran % 0.5 (0-4) % Seg Neutrophils % 79.8 % Lymphocytes % 11.9 % Monocytes % 6.3 % Eosinophils % 1.3 % Basophils % 0.2 % Neutrophils # 10.5 H (1.6-8.9) K/mcL Lymphocytes # 1.6 (0.6-4.6) K/mcL Monocytes # 0.8 (0.0-1.3) K/mcL Eosinophils # 0.2 (0.0-0.6) K/mcL Basophils # 0.0 (0.0-0.2) K/mcL PT 161.2 H* (9.4-12.1) Seconds INR 14.3 H* APTT 71.2 H (26.0-36.0) Seconds Sodium 129 L (136-145) mEq/L Potassium 4.9 (3.5-5.1) mEq/L Chloride 97 L (98-107) mEq/L Carbon Dioxide 24 (23-29) mEq/L BUN 40 H (8-23) mg/dL Creatinine 1.13 (0.60-1.20) mg/dL Est GFR ( Amer) 56 L (> 60) Est GFR (Non-Af Amer) 46 L (> 60) BUN/Creatinine Ratio 35 H (6-26) Glucose 87 (70-105) mg/dL Calculated Osmolality 277 L (280-300) Calcium 9.3 (8.6-10.3) mg/dL Magnesium 1.6 (1.6-2.6) mg/dL Total Bilirubin 2.7 H (0.3-1.0) mg/dL AST 28 (13-39) Units/L ALT 17 (7-52) Units/L Alkaline Phosphatase 126 H (34-104) Units/L Serum Total Protein 5.7 L (6.4-8.9) g/dL Albumin 2.9 L (3.5-5.7) g/dL Globulin 2.8 (2.4-3.5) g/dL Albumin/Globulin Ratio 1.0 L (1.1-2.2) Consult Discharge Plan - Plan Referrals: NONE,PCP [Primary Care Provider] - - Attending Attestation I have personally performed a face to face evaluation on this patient. I have reviewed and agree with the care plan. History and Exam by me shows: This is an addendum to original report dictated by Brittni Mcfarlane CNP. Please refer to Brittni's note for full detail. Patient is an 83-year-old woman who was transferred to [facility] from [place] for bruising and blistering of her right arm. We are asked to evaluate her and make recommendations on the antibiotic. Assessment and plan: 1.Cellulitis of right upper extremity with unknown causative organism not sure if this is true cellulitis versus ecchymosis from coagulopathy CT of the right upper extremity reviewed 2.Supratherapeutic INR 3.Atrial fibrillation 4.COPD 5.Chronic hepatitis 6.Hypertension Recommendations: Await blood cultures. Continue to trend WBC. Discontinue Vancomycin. Start doxycycline 100mg PO BID. Duration of treatment depends on the clinical picture, but likely 5-7 days. Monitor renal function and dose-adjust antibiotics. No further recommendations from the ID team. We will sign off. Please re-consult if needed.
[2018-11-03 12:35] LABS: Hematocrit 36.1 % (35.3-44.9); Hemoglobin 12.4 g/dL (11.5-15.4); Mean Corpuscular HGB Conc 34.3 g/dL (31.6-35.5); Mean Corpuscular Hemoglobin 32.8 pg (28.0-33.3); Mean Corpuscular Volume 95.5 fL (83.0-100.0); Mean Platelet Volume 9.5 fL (9.4-12.4); Platelet Count 224 K/mcL (140-400); Red Blood Count 3.78 M/mcL (3.82-4.97); Red Cell Distribution Width 12.5 % (11.5-14.5)
[2018-11-03 12:47] LABS: INR 2.4; Prothrombin Time 26.8 Seconds (9.4-12.1)
[2018-11-03 12:59] LABS: Albumin 3.5 g/dL (3.5-5.7); Albumin/Globulin Ratio 1.1 (1.1-2.2); Bilirubin,Direct 1.8 mg/dL (0.0-0.2); Bilirubin,Indirect 1.6 mg/dL (0.0-1.2); Bilirubin,Total 3.4 mg/dL (0.3-1.0); Globulin 3.2 g/dL (2.4-3.5); Total Protein 6.7 g/dL (6.4-8.9)
[2018-11-03 15:30] LABS: Hematocrit 36.6 % (35.3-44.9); Hemoglobin 11.8 g/dL (11.5-15.4)
[2018-11-03 15:53] LABS: INR 2.2; Prothrombin Time 24.3 Seconds (9.4-12.1)
[2018-11-03 16:07] LABS: Basophils % 0.2 %; Eosinophils % 0.2 %; Hematocrit 40.2 % (35.3-44.9); Hemoglobin 12.6 g/dL (11.5-15.4); Immature Granulocytes % 0.7 % (0-4); Lymphocytes # 1.2 K/mcL (0.6-4.6); Lymphocytes % 9.5 %; Mean Corpuscular HGB Conc 31.3 g/dL (31.6-35.5); Mean Corpuscular Hemoglobin 32.7 pg (28.0-33.3); Mean Platelet Volume 9.5 fL (9.4-12.4); Monocytes # 0.6 K/mcL (0.0-1.3); Neutrophils # 10.2 K/mcL (1.6-8.9); Nucleated Red Blood Cells 0.2 /100 WBC (0); Platelet Count 151 K/mcL (140-400); Red Blood Count 3.85 M/mcL (3.82-4.97); Red Cell Distribution Width 12.5 % (11.5-14.5); Segmented Neutrophils % 84.4 %
[2018-11-03 16:08] LABS: Mean Corpuscular Volume 104.4 fL (83.0-100.0)
--- NOTE | 2018-11-03 16:21 | Event Note ---
Date of Encounter: 11/03/18 Time of Encounter: 16:00 Our team was notified that pt had shaking chills and possible change in mental status. She has been seen and examined by myself and Dr Alcantar her resident. is at bedside. VS check is normal, afebrile. Stat cbc, bmp and lactate are ordered. She is currently on Vanc for possible cellulitis, seen by ID and plan to change to doxy, though she has not received her first dose yet. Given her supratherapeutic INR (down to 2s from 14 this morning) will check stat CT head On my exam pt is awake, alert, but somewhat confused which her confirms. She has shaking chills in the bilateral arms. When instructed she can stop the shaking. She is interactive and answers all questions. no headache, vision changes, cp or sob. RUE does not have pain. she denies weakness. 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 Cannot appreciate focal neuro deficit. stating she feels cold Transport at bedside to take to CT Labs received and pending We will update pt and her as to results and plan with further eval after imaging and labs complete.
[2018-11-03] MEDS ORDERED: 0.9 % Sodium Chloride 1,000 ML IVC ONE (16:38)
[2018-11-03] MEDS ORDERED: 0.9 % Sodium Chloride 500 ML IVC ONE (16:57)
[2018-11-03 16:58] LABS: BUN/Creatinine Ratio 37 (6-26); Blood Urea Nitrogen 30 mg/dL (8-23); Calcium 9.6 mg/dL (8.6-10.3); Carbon Dioxide 18 mEq/L (23-29); Chloride 101 mEq/L (98-107); Glucose 105 mg/dL (70-105); Osmolality,Calculated 283 (280-300); Potassium 5.2 mEq/L (3.5-5.1); Sodium 133 mEq/L (136-145); eGFR For Non-African Americans > 60 (> 60)
[2018-11-03 20:16] LABS: Bilirubin,Urine Negative (Negative); Blood,Urine Small (Negative); Clarity,Urine Turbid (Clear); Color,Urine Dark Yellow (Yellow); Glucose,Urine (UA) Normal (Normal); Ketones,Urine Negative (Negative); Leukocyte Esterase,Urine Large (Negative); Nitrite,Urine Positive (Negative); Protein,Urine Negative (Neg-Trace); Specific Gravity,Urine 1.012 (1.010-1.025); Urobilinogen,Urine Normal (Normal)
[2018-11-03 20:18] LABS: Bacteria,Urine Few per hpf (None-Few); Hyaline Casts,Urine None Seen per lpf (None-Few); RBC,Urine 0-3 per hpf (0-3); Squamous Epithelial Cell,Urine Many per lpf (None-Few); WBC,Urine TNTC per hpf (0-3)
[2018-11-03 22:22] LABS: Hematocrit 36.1 % (35.3-44.9); Hemoglobin 12.2 g/dL (11.5-15.4)
[2018-11-03 22:43] LABS: BUN/Creatinine Ratio 36 (6-26); Blood Urea Nitrogen 25 mg/dL (8-23); Calcium 9.1 mg/dL (8.6-10.3); Carbon Dioxide 21 mEq/L (23-29); Chloride 103 mEq/L (98-107); Glucose 131 mg/dL (70-105); Osmolality,Calculated 282 (280-300); Potassium 4.2 mEq/L (3.5-5.1); Sodium 133 mEq/L (136-145); eGFR For Non-African Americans > 60 (> 60)
[2018-11-04] MEDS: Levofloxacin 250 MG/50 ML 250 MG/50 ML BAG IVPB SCH (02:05)
[2018-11-04 07:41] LABS: INR 1.6; Prothrombin Time 17.7 Seconds (9.4-12.1)
[2018-11-04 07:48] LABS: Alanine Aminotransferase 14 Units/L (7-52); Albumin 2.6 g/dL (3.5-5.7); Alkaline Phosphatase 102 Units/L (34-104); Aspartate Amino Transferase 24 Units/L (13-39); BUN/Creatinine Ratio 42 (6-26); Bilirubin,Direct 1.3 mg/dL (0.0-0.2); Bilirubin,Indirect 1.1 mg/dL (0.0-1.2); Bilirubin,Total 2.4 mg/dL (0.3-1.0); Blood Urea Nitrogen 24 mg/dL (8-23); Calcium 8.4 mg/dL (8.6-10.3); Carbon Dioxide 25 mEq/L (23-29); Chloride 102 mEq/L (98-107); Globulin 2.6 g/dL (2.4-3.5); Glucose 102 mg/dL (70-105); Magnesium 1.8 mg/dL (1.6-2.6); Osmolality,Calculated 282 (280-300); Potassium 3.7 mEq/L (3.5-5.1); Sodium 134 mEq/L (136-145); Total Protein 5.2 g/dL (6.4-8.9); eGFR For Non-African Americans > 60 (> 60)
--- NOTE | 2018-11-04 07:54 | Internal Med Progress Note ---
<Antonio Alcantar N - Last Filed: 11/04/18 13:08> Hospitalist Progress Note - Encounter Date of Encounter: 11/04/18 Time of Encounter: 06:30 - Subjective Interval History: Patient seen and examined this morning with family present. She complains of pain at the elbow. Notices or chills or shaking overnight. - Exam Vitals: Temp Pulse Resp BP Pulse Ox 98.3 F 82 16 124/76 95 11/04/18 07:14 11/04/18 07:14 11/04/18 07:14 11/04/18 07:14 11/04/18 07:14 Exam: Constitutional: Resting comfortably in bed, no acute distress HEENT: Head is atraumatic and normocephalic. Pupils equal and round. Extraocular muscles intact. No facial asymmetry, no dysarthria. No oral pharyngeal lesions. External ears and nares patent. Neck: No JVD, trachea midline Chest: Symmetrical chest rise, no tenderness to palpation cardioascular: 2/6 systolic murmur present. Regular rate and rhythm. Respiratory: Clear to auscultation bilaterally, no rales rhonchi or wheezing Abdomen: Soft, nontender, no guarding rigidity Extremities: The right upper extremity is swollen and discolored throughout. There is seeping serosanguineous fluid noted. It is exquisitely tender to touch. The left upper extremity has multiple ecchymosis. Both upper extremity's are neurovascularly intact. Neurological: Alert and oriented 3, no obvious focal neurological deficits Psych: Appropriate mood and affect. - Assessment and Plan (1) Supratherapeutic INR Current Visit: No Status: Acute Assessment and Plan: -Patient presented with supratherapeutic INR as high as 14.3 -She received a total of 15 mg vitamin K and 1 unit fresh frozen plasma -INR 1.6 today -Patient is neurovascularly intact Plan: -Hemoglobin stable overnight -No evidence for bleeding -Unknown etiology for patient's drastic increase in INR, patient is well educated on proper use of Coumadin and denies any changes to her regiment, any new medications including [id number], or any diet changes. -Does have a history of hepatitis C with mild elevation in her bilirubin that is slowly trending down. Unknown if INR elevation secondary to hepatic injury (2) UTI (urinary tract infection) Current Visit: No Status: Chronic Assessment and Plan: -Patient episode of shaking, chills, and slurred speech yesterday. this morning she states that this is an ongoing and has occurred at home before -Afebrile but has had leukocytosis -Labs obtained yesterday were generally unremarkable with stable hemoglobin and electrolytes. Head CT was negative for bleed. -Urinalysis obtained yesterday was indicative for the possibility of underlying UTI Plan: -Started on Levaquin -Infectious disease recommend discontinue vancomycin (3) Cellulitis Current Visit: No Status: Acute Assessment and Plan: -Imaging results concerning for cellulitis, however the imaging findings are more reflective of underlying edema -Patient has a elevated white blood cell count, however urinary tract infection is higher on differential -Currently on Levaquin for the possibility of UTI -Infectious disease consultation Plan: -Stopped vancomycin, on Levaquin for UTI -Currently hemodynamically stable (4) Chronic hepatitis Current Visit: No Status: Chronic Assessment and Plan: -Patient has history of chronic hepatitis C -This may be responsible in part for patient's supratherapeutic INR and Coumadin -Bilirubin elevated but trending down. Unknown at this secondary to hepatic injury versus red blood cell turnover Plan: -We will consider further evaluation with CT abdomen and pelvis to evaluate for hepatic disease -Continue to monitor CMP (5) Rotator cuff arthropathy Current Visit: No Status: Acute Assessment and Plan: --Rotator cuff tears noted on imaging -Not a surgical candidate at this time due to severely supratherapeutic INR -Has some pain in the right shoulder Plan: -Will follow-up outpatient (6) Atrial fibrillation Current Visit: No Status: Chronic Assessment and Plan: -Currently in normal sinus rhythm -Holding Coumadin due to supratherapeutic INR on admission (7) DVT prophylaxis Current Visit: No Status: Acute Assessment and Plan: Foot pumps - Time Spent with Patient Total time spent is greater than 50% in coordination of care (as documented) at patient's floor/unit and/or counseling patient: Internal Medicine: Result - Labs CBC & Chem 7: 11/03/18 22:11 11/04/18 06:51 Labs: Short CBC 11/03/18 11/03/18 11/03/18 Range/Units 12:19 14:55 15:56 WBC 14.3 H 12.1 H (4.3-11.1) K/mcL Hgb 12.4 11.8 12.6 (11.5-15.4) g/dL Hct 36.1 36.6 40.2 (35.3-44.9) % Plt Count 224 151 (140-400) K/mcL Neutrophils # 10.2 H (1.6-8.9) K/mcL 11/03/18 Range/Units 22:11 WBC (4.3-11.1) K/mcL Hgb 12.2 (11.5-15.4) g/dL Hct 36.1 (35.3-44.9) % Plt Count (140-400) K/mcL Neutrophils # (1.6-8.9) K/mcL BMP 11/03/18 11/03/18 11/04/18 15:56 22:11 06:51 Sodium 133 L 133 L 134 L Potassium 5.2 H 4.2 3.7 Chloride 101 103 102 Carbon Dioxide 18 L 21 L 25 BUN 30 H 25 H 24 H Creatinine 0.81 0.69 0.57 L Glucose 105 131 H 102 Calcium 9.6 9.1 8.4 L Liver Function 11/03/18 11/04/18 Range/Units 12:19 06:51 Total Bilirubin 3.4 H 2.4 H (0.3-1.0) mg/dL Direct Bilirubin 1.8 H 1.3 H (0.0-0.2) mg/dL AST 32 24 (13-39) Units/L ALT 18 14 (7-52) Units/L Alkaline Phosphatase 141 H 102 (34-104) Units/L Albumin 3.5 2.6 L (3.5-5.7) g/dL Urine 11/03/18 Range/Units 19:55 Urine Color Dark Yellow (Yellow) Urine Clarity Turbid A (Clear) Urine pH 6.0 (5.0-8.0) pH Units Ur Specific [place] 1.012 (1.010-1.025) Urine Protein Negative (Neg-Trace) mg/dL Urine Glucose (UA) Normal (Normal) mg/dL - ABG Interpretation ABG results: PT/INR, D-dimer PT 17.7 Seconds (9.4-12.1) H 11/04/18 06:51 - Impressions Impressions Head CT 11/03/18 15:39 IMPRESSION: No acute intracranial abnormality. D/ / Aquilino No MD / Aquilino No MD Interpreting Provider: Aquilino No MD Chest X-Ray 11/03/18 16:56 IMPRESSION: No evidence for acute cardiopulmonary process. Stable cardiomegaly. D/ / 11/04/2018 07:02:42 Vamshi Martino MD / earnold Interpreting Provider: Vamshi Martino MD Consult Discharge Plan - Plan Referrals: NONE,PCP [Primary Care Provider] - <Mona Parsons - Last Filed: 11/04/18 14:25> Hospitalist Progress Note - Encounter Date of Encounter: 11/04/18 - Exam Vitals: Temp Pulse Resp BP Pulse Ox 98.3 F 82 16 124/76 95 11/04/18 07:14 11/04/18 07:14 11/04/18 07:14 11/04/18 07:14 11/04/18 08:23 - Time Spent with Patient Total time spent is greater than 50% in coordination of care (as documented) at patient's floor/unit and/or counseling patient: Internal Medicine: Result - Labs CBC & Chem 7: 11/04/18 09:38 11/04/18 06:51 Labs: Short CBC 11/03/18 11/03/18 11/03/18 Range/Units 14:55 15:56 22:11 WBC 12.1 H (4.3-11.1) K/mcL Hgb 11.8 12.6 12.2 (11.5-15.4) g/dL Hct 36.6 40.2 36.1 (35.3-44.9) % Plt Count 151 (140-400) K/mcL Neutrophils # 10.2 H (1.6-8.9) K/mcL 11/04/18 Range/Units 09:38 WBC 13.0 H (4.3-11.1) K/mcL Hgb 12.7 (11.5-15.4) g/dL Hct 35.9 (35.3-44.9) % Plt Count 218 (140-400) K/mcL Neutrophils # 10.0 H (1.6-8.9) K/mcL BMP 11/03/18 11/03/18 11/04/18 15:56 22:11 06:51 Sodium 133 L 133 L 134 L Potassium 5.2 H 4.2 3.7 Chloride 101 103 102 Carbon Dioxide 18 L 21 L 25 BUN 30 H 25 H 24 H Creatinine 0.81 0.69 0.57 L Glucose 105 131 H 102 Calcium 9.6 9.1 8.4 L Liver Function 11/04/18 Range/Units 06:51 Total Bilirubin 2.4 H (0.3-1.0) mg/dL Direct Bilirubin 1.3 H (0.0-0.2) mg/dL AST 24 (13-39) Units/L ALT 14 (7-52) Units/L Alkaline Phosphatase 102 (34-104) Units/L Albumin 2.6 L (3.5-5.7) g/dL Urine 11/03/18 Range/Units 19:55 Urine Color Dark Yellow (Yellow) Urine Clarity Turbid A (Clear) Urine pH 6.0 (5.0-8.0) pH Units Ur Specific [place] 1.012 (1.010-1.025) Urine Protein Negative (Neg-Trace) mg/dL Urine Glucose (UA) Normal (Normal) mg/dL - ABG Interpretation ABG results: PT/INR, D-dimer PT 17.7 Seconds (9.4-12.1) H 11/04/18 06:51 - Impressions Impressions Head CT 11/03/18 15:39 IMPRESSION: No acute intracranial abnormality. D/ / Aquilino oN MD / Aquilino No MD Interpreting Provider: Aquilino No MD Chest X-Ray 11/03/18 16:56 IMPRESSION: No evidence for acute cardiopulmonary process. Stable cardiomegaly. D/ / 11/04/2018 07:02:42 Vamshi Martino MD / earnold Interpreting Provider: Vamshi Martino MD Abdomen CT 11/04/18 08:37 IMPRESSION: 1. Trace bilateral pleural effusions. D/ / Abbe Hays MD / Abbe Hays MD Interpreting Provider: Abbe Hays MD - Attending Attestation I examined this patient and my medical decision-making was reviewed with the Resident Physician Dr Alcantar. I agree with the documented findings, disposition and treatment plan as described except to the extent set forth below. Ms Serra is being observed for supratherapeutic INR with soft tissue bleeding in the RUE awake, daughter at bedside. she does not havie shaking chills. she does have dysuria. no fevers. she has been sitting with arm at her side and now edema has worsened in hand/fingers and wrist. educated pt and daughter regarding need to elevate. denies numbness/tingling in hand, no pain in arm, no change in warmth gen- alert, awake,appears stated age cv- reg rate and rhythm, normal s1,s2, radial pulses 2+, cap refill RUE normal lungs- ctabl, no wheezing, rhonchi or crackles, normal resp effort skin- extensive ecchymosis RUE from shoulder to finger tips, skin tear with serosang drainage on bottom of mid forearm, area of ecchymosis LUE near deltoid unchaged, venous stasis changes BL LE msk- rworsened distal RUE edema with reduced rom wrist neuro- AAOx3, CN grossly intact, RUE sensation to light touch intact Supratherapeutic INR 14.3-s/p Vit K and FFP, inow normalized - cont to hold coumadin, serial h/hs thus far stable RUE pain and edema- 2/2 most likely soft tissue bleed 2/2 above, cannot rule out cellulitis on CT imaging - ortho following, cont neuro vasc checks, levaquin, ID consulted on admit afib, currently NSR- hold warfarin chronic hyponatremia, no cognitive deficits, stable- fu outpt for further monitoring/work up Hep C hx- given she has low protein, mildly elevated alk phos, t bili (which she has had in past) and elevated INR without identifiable cause- CT scan of liver to assure no mass/cirrhosis (pt can't have mris due to device) and no acute findings noted Suspected UTI- levquin,, ucx pending further diagnoses and plan as per resident <Antonio Alcantar - Last Filed: 11/04/18 13:08> (2) UTI (urinary tract infection) Qualifiers: Urinary tract infection type: site unspecified Hematuria presence: without hematuria Qualified Code(s): N39.0 - Urinary tract infection, site not specified (3) Cellulitis Qualifiers: Site of cellulitis: extremity Site of cellulitis of extremity: upper extremi ty Laterality: right Qualified Code(s): L03.113 - Cellulitis of right upper limb (5) Rotator cuff arthropathy Qualifiers: Laterality: right Qualified Code(s): M75.101 - Unspecified rotator cuff tear or rupture of right shoulder, not specified as traumatic; M12.811 - Other specific arthropathies, not elsewhere classified, right shoulder (6) Atrial fibrillation Qualifiers: Atrial fibrillation type: chronic Qualified Code(s): I48.2 - Chronic atrial fibrillation
[2018-11-04 10:29] LABS: Hematocrit 35.9 % (35.3-44.9); Hemoglobin 12.7 g/dL (11.5-15.4); Immature Platelets 1.8 % (1.1-6.1); Mean Corpuscular HGB Conc 35.4 g/dL (31.6-35.5); Mean Corpuscular Hemoglobin 32.7 pg (28.0-33.3); Mean Platelet Volume 10.2 fL (9.4-12.4); Platelet Count 218 K/mcL (140-400); Red Blood Count 3.88 M/mcL (3.82-4.97); Red Cell Distribution Width 12.6 % (11.5-14.5)
[2018-11-04 10:30] LABS: Eosinophils # 0.2 K/mcL (0.0-0.6); Eosinophils % 1.3 %; Immature Granulocytes % 2.9 % (0-4); Lymphocytes # 1.5 K/mcL (0.6-4.6); Lymphocytes % 11.4 %; Mean Corpuscular Volume 92.5 fL (83.0-100.0); Monocytes # 0.9 K/mcL (0.0-1.3); Monocytes % 6.8 %; Segmented Neutrophils % 77.1 %
[2018-11-04 10:31] LABS: Basophils # 0.1 K/mcL (0.0-0.2); Basophils % 0.5 %
[2018-11-04] MEDS: OXYCODONE Oral CONC 10 MG/0.5 ML ORAL.SYG SL PRN (16:00)
[2018-11-04] MEDS: Silvasorb 44.4 ML TUBE TP SCH (17:27)
[2018-11-05] MEDS: OXYCODONE Oral CONC 10 MG/0.5 ML ORAL.SYG SL PRN ×2 (03:09→16:36)
[2018-11-05 03:39] LABS: Basophils % 0.2 %; Eosinophils # 0.1 K/mcL (0.0-0.6); Eosinophils % 1.3 %; Hematocrit 32.3 % (35.3-44.9); Immature Granulocytes % 0.9 % (0-4); Lymphocytes # 2.4 K/mcL (0.6-4.6); Lymphocytes % 26.1 %; Mean Corpuscular HGB Conc 33.7 g/dL (31.6-35.5); Mean Corpuscular Hemoglobin 32.8 pg (28.0-33.3); Mean Corpuscular Volume 97.3 fL (83.0-100.0); Mean Platelet Volume 9.2 fL (9.4-12.4); Monocytes % 10.5 %; Neutrophils # 5.7 K/mcL (1.6-8.9); Platelet Count 215 K/mcL (140-400); Red Blood Count 3.32 M/mcL (3.82-4.97); Red Cell Distribution Width 12.5 % (11.5-14.5)
[2018-11-05 03:40] LABS: Hemoglobin 10.9 g/dL (11.5-15.4)
[2018-11-05 03:53] LABS: BUN/Creatinine Ratio 35 (6-26); Blood Urea Nitrogen 18 mg/dL (8-23); Calcium 8.1 mg/dL (8.6-10.3); Carbon Dioxide 22 mEq/L (23-29); Chloride 101 mEq/L (98-107); Glucose 99 mg/dL (70-105); Osmolality,Calculated 278 (280-300); Potassium 3.8 mEq/L (3.5-5.1); Sodium 133 mEq/L (136-145); eGFR For Non-African Americans > 60 (> 60)
[2018-11-05 03:55] LABS: INR 1.6; Prothrombin Time 17.9 Seconds (9.4-12.1)
[2018-11-05] MEDS ORDERED: Aminoglycoside Consult 1 EACH MC ONE (06:52)
[2018-11-05] MEDS: Lactobacillus 1 EACH CAP.SPRINK PO SCH (08:05)
[2018-11-05] MEDS: Levofloxacin 250 MG/50 ML 250 MG/50 ML BAG IVPB SCH (08:06)
[2018-11-05] MEDS: Furosemide 20 MG TABLET PO SCH (08:06)
[2018-11-05] MEDS: Silvasorb 44.4 ML TUBE TP SCH (08:07)
--- NOTE | 2018-11-05 08:37 | Internal Med Progress Note ---
<Antonio Alcantar N - Last Filed: 11/05/18 11:55> Hospitalist Progress Note - Encounter Date of Encounter: 11/05/18 Time of Encounter: 08:30 - Subjective Interval History: Patient seen and examined at bedside with daughter present. Pain and edema have slightly improved. No further bleeding noted. Wound care evaluated patient and recommended elevation of the right upper extremity. - Exam Vitals: Temp Pulse Resp BP Pulse Ox 98.1 F 86 16 159/84 96 11/05/18 08:00 11/05/18 08:00 11/05/18 08:00 11/05/18 08:00 11/05/18 08:00 Exam: Constitutional: Resting comfortably in bed, no acute distress HEENT: Head is atraumatic and normocephalic. Pupils equal and round. Extraocular muscles intact. No facial asymmetry, no dysarthria. No oral p haryngeal lesions. External ears and nares patent. Neck: No JVD, trachea midline Chest: Symmetrical chest rise, no tenderness to palpation cardioascular: 2/6 systolic murmur present. Regular rate and rhythm. Respiratory: Clear to auscultation bilaterally, no rales rhonchi or wheezing Abdomen: Soft, nontender, no guarding rigidity Extremities: The right upper extremity edema has slightly decreased and there is more wrinkling present at the hand indicative of improvement of patient's edema. The left upper extremity has multiple ecchymosis. Both upper extremity's are neurovascularly intact. Neurological: Alert and oriented 3, no obvious focal neurological deficits Psych: Appropriate mood and affect. - Assessment and Plan (1) Supratherapeutic INR Current Visit: No Status: Acute Assessment and Plan: -Patient presented with supratherapeutic INR as high as 14.3 -She received a total of 15 mg vitamin K and 1 unit fresh frozen plasma -INR 1.6 today -Right infection is neurovascularly intact. Edema and pain are slightly improved -CT abdomen pelvis yesterday for evaluation of hepatic function was negative for any nodularity or cirrhotic appearance of the liver. Plan: -Hemoglobin stable overnight -No evidence for bleeding -Unknown etiology for patient's drastic increase in INR, patient is well educated on proper use of Coumadin and denies any changes to her regiment, any new medications including [id number], or any diet changes. -After this episode patient's Has-Bled score is 4 which places her at high risk for future bleeding events. Will evaluate for need for further anticoagulation treatment versus rate control for patient's chronic A. fib (2) UTI (urinary tract infection) Current Visit: No Status: Chronic Assessment and Plan: -Patient episode of shaking, chills, and slurred speech during hospital patient. She states that this is an ongoing and has occurred at home before -Afebrile but has had leukocytosis -Urinalysis indicative for the possibility of underlying UTI -Urine culture growing gram-negative laura Plan: -On Levaquin, day 2. Day 3 for total antibiotics -Follow up on sensitivities (3) Cellulitis Current Visit: No Status: Acute Assessment and Plan: -Imaging results concerning for cellulitis, however given the clinical picture these findings are more reflective of underlying edema -Patient has a elevated white blood cell count, however urinary tract infection is higher on differential -Currently on Levaquin for the possibility of UTI -Infectious disease consultation Plan: -Stopped vancomycin, on Levaquin for UTI -Currently hemodynamically stable (4) Chronic hepatitis Current Visit: No Status: Chronic Assessment and Plan: -Patient has history of chronic hepatitis C -CT abdomen and pelvis unremarkable for nodularity or cirrhotic appearance of the liver Plan: -Continue to monitor CMP (5) Rotator cuff arthropathy Current Visit: No Status: Acute Assessment and Plan: -Rotator cuff tears noted on imaging -Not a surgical candidate at this time due to severely supratherapeutic INR -Has some pain in the right shoulder Plan: -Will follow-up outpatient (6) Atrial fibrillation Current Visit: No Status: Chronic Assessment and Plan: -Currently in normal sinus rhythm -Holding Coumadin due to supratherapeutic INR on admission -Has-Bled score is 4 -Chads-Vasc score is 7 Plan: -We will have to determine patient's need for continued anticoagulation for chronic A. fib -If warfarin is to be restarted she will require constant and close follow-up with Coumadin clinic to monitor her INR levels (7) DVT prophylaxis Current Visit: No Status: Acute Assessment and Plan: EPCDs - Time Spent with Patient Total time spent is greater than 50% in coordination of care (as documented) at patient's floor/unit and/or counseling patient: Internal Medicine: Result - Labs CBC & Chem 7: 11/05/18 03:09 11/05/18 03:09 Labs: Short CBC 11/04/18 11/05/18 Range/Units 09:38 03:09 WBC 13.0 H 9.3 (4.3-11.1) K/mcL Hgb 12.7 10.9 L D (11.5-15.4) g/dL Hct 35.9 32.3 L (35.3-44.9) % Plt Count 218 215 (140-400) K/mcL Neutrophils # 10.0 H 5.7 (1.6-8.9) K/mcL BMP 11/05/18 03:09 Sodium 133 L Potassium 3.8 Chloride 101 Carbon Dioxide 22 L BUN 18 Creatinine 0.51 L Glucose 99 Calcium 8.1 L - ABG Interpretation ABG results: PT/INR, D-dimer PT 17.9 Seconds (9.4-12.1) H 11/05/18 03:09 - Impressions Impressions Chest X-Ray 11/03/18 16:56 IMPRESSION: No evidence for acute cardiopulmonary process. Stable cardiomegaly. D/ / 11/04/2018 07:02:42 Vamshi Martino MD / earnold Interpreting Provider: Vmashi Martino MD Abdomen CT 11/04/18 08:37 IMPRESSION: 1. Trace bilateral pleural effusions. D/ / Abbe Hays MD / Abbe Hays MD Interpreting Provider: Abbe Hays MD Consult Discharge Plan - Plan Referrals: NONE,PCP [Primary Care Provider] - <Onel Mcadams - Last Filed: 11/05/18 14:23> Hospitalist Progress Note - Encounter Date of Encounter: 11/05/18 - Exam Vitals: Temp Pulse Resp BP Pulse Ox 97.8 F 80 16 125/76 98 11/05/18 11:27 11/05/18 11:27 11/05/18 08:00 11/05/18 11:27 03/27/19 11:27 - Assessment and Plan (1) UTI (urinary tract infection) Current Visit: No Status: Chronic (2) Spontaneous hematoma of upper arm Current Visit: Yes Status: Acute (3) Supratherapeutic INR Current Visit: No Status: Acute (4) Atrial fibrillation Current Visit: No Status: Chronic (5) Chronic hepatitis Current Visit: No Status: Chronic (6) Hypertension Current Visit: No Status: Chronic (7) KATHE (obstructive sleep apnea) Current Visit: No Status: Chronic (8) CHF (congestive heart failure) Current Visit: Yes Status: Chronic (9) Cellulitis of right upper extremity Current Visit: Yes Status: Acute - Time Spent with Patient Total time spent is greater than 50% in coordination of care (as documented) at patient's floor/unit and/or counseling patient: Internal Medicine: Result - Labs CBC & Chem 7: 11/05/18 03:09 11/05/18 03:09 Labs: Short CBC 11/05/18 Range/Units 03:09 WBC 9.3 (4.3-11.1) K/mcL Hgb 10.9 L D (11.5-15.4) g/dL Hct 32.3 L (35.3-44.9) % Plt Count 215 (140-400) K/mcL Neutrophils # 5.7 (1.6-8.9) K/mcL BMP 11/05/18 03:09 Sodium 133 L Potassium 3.8 Chloride 101 Carbon Dioxide 22 L BUN 18 Creatinine 0.51 L Glucose 99 Calcium 8.1 L - ABG Interpretation ABG results: PT/INR, D-dimer PT 17.9 Seconds (9.4-12.1) H 11/05/18 03:09 - Impressions Impressions Chest X-Ray 11/03/18 16:56 IMPRESSION: No evidence for acute cardiopulmonary process. Stable cardiomegaly. D/ / 11/04/2018 07:02:42 Vamshi Martino MD / earnold Interpreting Provider: Vamshi Martino MD - Attending Attestation I examined this patient and my medical decision-making was reviewed with the Resident Physician on 11/05/18. I agree with the documented findings, disposition and treatment plan as described except to the extent set forth below. Ms Serra is currently admitted for LUE hematoma due to elevated INR. She remains moderate to high risk due to potential for worsening clinical status. Ms Serra feels OK. She is up getting washed. Feels she may have less edema but is having oozing from lower arm. No fever or chills. No CP or SOB. Exam alert Comfortable Mucus membranes dry Normocephalic Heart reg and not tachycardic Lungs clear at this time Abd soft Ecchymoses bilateral upper extremities - significant on R with dressing on lower arm. Bilateral lower extremities with dependent edema as well. I/P 1. Hematoma/ecchymosis bilateral UE - R greater. Coumadin reversed and INR now low. Wound care for oozing. 2. Supratherapeutic INR - improved. Will check for Xarelto/Eliquis stephens 3. UTI - final culture pending. Currently on Levaquin 4. Cellulitis - will continue Levaquin for now 5. Chronic a fib on anticoagulation 6/ Chronic hep C Further diagnoses and plan as above. <Antonio Alcantar - Last Filed: 11/05/18 11:55> (2) UTI (urinary tract infection) Qualifiers: Urinary tract infection type: site unspecified Hematuria presence: without hematuria Qualified Code(s): N39.0 - Urinary tract infection, site not s pecified (3) Cellulitis Qualifiers: Site of cellulitis: extremity Site of cellulitis of extremity: upper extremity Laterality: right Qualified Code(s): L03.113 - Cellulitis of right upper limb (5) Rotator cuff arthropathy Qualifiers: Laterality: right Qualified Code(s): M75.101 - Unspecified rotator cuff tear or rupture of right shoulder, not specified as traumatic; M12.811 - Other specific arthropathies, not elsewhere classified, right shoulder (6) Atrial fibrillation Qualifiers: Atrial fibrillation type: chronic Qualified Code(s): I48.2 - Chronic atrial fibrillation <Onel Mcadams - Last Filed: 11/05/18 14:23> (1) UTI (urinary tract infection) Qualifiers: Urinary tract infection type: acute cystitis Hematuria presence: without hematuria Qualified Code(s): N30.00 - Acute cystitis without hematuria (4) Atrial fibrillation Qualifiers: Atrial fibrillation type: chronic Qualified Code(s): I48.2 - Chronic atrial fibrillation (6) Hypertension Qualifiers: Hypertension type: essential hypertension Qualified Code(s): I10 - Essential (primary) hypertension (8) CHF (congestive heart failure) Qualifiers: Heart failure type: diastolic Heart failure chronicity: chronic Qualified Code(s): I50.32 - Chronic diastolic (congestive) heart failure
[2018-11-06] MEDS: OXYCODONE Oral CONC 10 MG/0.5 ML ORAL.SYG SL PRN ×4 (00:33→22:00)
[2018-11-06 06:15] LABS: Basophils % 0.3 %; Eosinophils # 0.2 K/mcL (0.0-0.6); Eosinophils % 1.5 %; Hematocrit 34.2 % (35.3-44.9); Hemoglobin 11.5 g/dL (11.5-15.4); Immature Granulocytes % 1.2 % (0-4); Lymphocytes # 2.1 K/mcL (0.6-4.6); Lymphocytes % 21.1 %; Mean Corpuscular HGB Conc 33.6 g/dL (31.6-35.5); Mean Corpuscular Hemoglobin 32.9 pg (28.0-33.3); Mean Corpuscular Volume 97.7 fL (83.0-100.0); Monocytes # 0.9 K/mcL (0.0-1.3); Monocytes % 9.4 %; Neutrophils # 6.5 K/mcL (1.6-8.9); Platelet Count 201 K/mcL (140-400); Red Cell Distribution Width 12.2 % (11.5-14.5); Segmented Neutrophils % 66.5 %
[2018-11-06 06:23] LABS: INR 1.5; Prothrombin Time 17.4 Seconds (9.4-12.1)
[2018-11-06 06:34] LABS: BUN/Creatinine Ratio 33 (6-26); Blood Urea Nitrogen 15 mg/dL (8-23); Calcium 8.2 mg/dL (8.6-10.3); Carbon Dioxide 25 mEq/L (23-29); Chloride 99 mEq/L (98-107); Glucose 96 mg/dL (70-105); Osmolality,Calculated 275 (280-300); Potassium 3.8 mEq/L (3.5-5.1); Sodium 132 mEq/L (136-145); eGFR For Non-African Americans > 60 (> 60)
--- NOTE | 2018-11-06 09:26 | Internal Med Progress Note ---
<LynnshuAntonio N - Last Filed: 11/06/18 13:20> Hospitalist Progress Note - Encounter Date of Encounter: 11/06/18 Time of Encounter: 08:45 - Subjective Interval History: Patient seen and examined at bedside this morning. Patient decided to switch anticoagulation therapy from warfarin to Eliquis after was Gao checked by pharmacy. Echo does not reveal any mitral stenosis or do not suspect her A. fib is secondary to valvular etiology. This morning patient states that her pain and swelling has subjectively improved. No new complaints. Patient does voice that on discharge she would prefer inpatient rehabilitation as she is unable to care for herself in this condition and her is also elderly and unable to care for her. - Exam Vitals: Temp Pulse Resp BP Pulse Ox 98.1 F 91 16 114/68 95 11/06/18 06:34 11/06/18 06:34 11/06/18 06:34 11/06/18 06:34 11/06/18 06:34 Exam: Constitutional: Resting comfortably in bed, no acute distress HEENT: Head is atraumatic and normocephalic. Pupils equal and round. Extraocular muscles intact. No facial asymmetry, no dysarthria. No oral pharyngeal lesions. External ears and nares patent. Neck: No JVD, trachea midline Chest: Symmetrical chest rise, no tenderness to palpation cardioascular: 2/6 systolic murmur present. Regular rate and rhythm. Respiratory: Clear to auscultation bilaterally, no rales rhonchi or wheezing Abdomen: Soft, nontender, no guarding rigidity Extremities: The right upper extremity edema has slightly decreased and there is more wrinkling present at the hand indicative of improvement of patient's edema. The left upper extremity has multiple ecchymosis. Both upper extremity's are neurovascularly intact. Neurological: Alert and oriented 3, no obvious focal neurological deficits Psych: Appropriate mood and affect. - Assessment and Plan (1) Supratherapeutic INR Current Visit: No Status: Acute Assessment and Plan: -Patient presented with supratherapeutic INR as high as 14.3 -She received a total of 15 mg vitamin K and 1 unit fresh frozen plasma -INR 1.5 today -Right upper extremity edema improving, no new bleeds noted, hemoglobin stable Plan: -Unknown etiology for patient's drastic increase in INR, patient is well educated on proper use of Coumadin and denies any changes to her regiment, any new medications including [id number], or any diet changes. -Has-Bled score is 4, however ChadsVasc score is 7 -Patient agreeable to switch anticoagulation to eliquis (2) UTI (urinary tract infection) Current Visit: No Status: Chronic Assessment and Plan: -Afebrile leukocytosis resolved -Urine cultures grew Escherichia coli Plan: -On Levaquin, day 3. Day 4 for total antibiotics -Converted Levaquin to by mouth (3) Cellulitis Current Visit: No Status: Acute Assessment and Plan: -At this time suspicion is low for cellulitis -Suspect soft tissue imaging on CT scan was secondary to sterile edema as opposed to cellulitis -Leukocytosis suspected to be secondary to underlying urinary tract infection Plan: -Continue by mouth Levaquin for UTI -Low suspicion for cellulitis (4) Chronic hepatitis Current Visit: No Status: Chronic Assessment and Plan: -Patient has history of chronic hepatitis C -CT abdomen and pelvis unremarkable for nodularity or cirrhotic appearance of the liver Plan: -Continue to monitor CMP (5) Rotator cuff arthropathy Current Visit: No Status: Acute Assessment and Plan: -Rotator cuff tears noted on imaging -Not a surgical candidate at this time due to severely supratherapeutic INR -Has some pain in the right shoulder Plan: -Will follow-up outpatient (6) Atrial fibrillation Current Visit: No Status: Chronic Assessment and Plan: -Currently in normal sinus rhythm -Holding Coumadin due to supratherapeutic INR on admission -Has-Bled score is 4 -Chads-Vasc score is 7 Plan: -We will start Eliquis today for chronic nonvalvular A. fib (7) DVT prophylaxis Current Visit: No Status: Acute Assessment and Plan: Starting Eliquis today - Time Spent with Patient Total time spent is greater than 50% in coordination of care (as documented) at patient's floor/unit and/or counseling patient: Internal Medicine: Result - Labs CBC & Chem 7: 11/06/18 05:52 11/06/18 05:52 Labs: Short CBC 11/06/18 Range/Units 05:52 WBC 9.9 (4.3-11.1) K/mcL Hgb 11.5 (11.5-15.4) g/dL Hct 34.2 L (35.3-44.9) % Plt Count 201 (140-400) K/mcL Neutrophils # 6.5 (1.6-8.9) K/mcL BMP 11/06/18 05:52 Sodium 132 L Potassium 3.8 Chloride 99 Carbon Dioxide 25 BUN 15 Creatinine 0.46 L Glucose 96 Calcium 8.2 L - ABG Interpretation ABG results: PT/INR, D-dimer PT 17.4 Seconds (9.4-12.1) H 11/06/18 05:52 Consult Discharge Plan - Plan Referrals: NONE,PCP [Primary Care Provider] - <Onel Mcadams - Last Filed: 11/06/18 18:25> Hospitalist Progress Note - Encounter Date of Encounter: 11/06/18 - Exam Vitals: Temp Pulse Resp BP Pulse Ox 97.8 F 78 16 142/78 97 11/06/18 14:08 11/06/18 14:08 11/06/18 14:08 11/06/18 14:08 11/06/18 14:08 - Assessment and Plan (1) UTI (urinary tract infection) Current Visit: No Status: Chronic (2) Spontaneous hematoma of upper arm Current Visit: Yes Status: Acute (3) Supratherapeutic INR Current Visit: No Status: Acute (4) Atrial fibrillation Current Visit: No Status: Chronic (5) Chronic hepatitis Current Visit: No Status: Chronic (6) Hypertension Current Visit: No Status: Chronic (7) KATHE (obstructive sleep apnea) Current Visit: No Status: Chronic (8) CHF (congestive heart failure) Current Visit: Yes Status: Chronic (9) Cellulitis of right upper extremity Current Visit: Yes Status: Acute - Time Spent with Patient Total time spent is greater than 50% in coordination of care (as documented) at patient's floor/unit and/or counseling patient: Internal Medicine: Result - Labs CBC & Chem 7: 11/06/18 05:52 11/06/18 05:52 Labs: Short CBC 11/06/18 Range/Units 05:52 WBC 9.9 (4.3-11.1) K/mcL Hgb 11.5 (11.5-15.4) g/dL Hct 34.2 L (35.3-44.9) % Plt Count 201 (140-400) K/mcL Neutrophils # 6.5 (1.6-8.9) K/mcL BMP 11/06/18 05:52 Sodium 132 L Potassium 3.8 Chloride 99 Carbon Dioxide 25 BUN 15 Creatinine 0.46 L Glucose 96 Calcium 8.2 L - ABG Interpretation ABG results: PT/INR, D-dimer PT 17.4 Seconds (9.4-12.1) H 11/06/18 05:52 - Attending Attestation I examined this patient and my medical decision-making was reviewed with the Resident Physician on 11/06/18. I agree with the documented findings, disposition and treatment plan as described except to the extent set forth below. Ms Serra is currently admitted for elevated INR and RUE hematoma. She remains moderate to high risk due to potential for worsening clinical status. Ms Serra is resting in bed. She has been recommended to go to rehab. No fever or chills. No CP or SOB. Exam alert Comfortable Mucus membranes dry Heart not tachy No wheeze abd soft Swelling about the same I/P 1. Hematoma 2. INR improved - will switch to Eliquis 3. D/C planning to rehab' Further diagnoses and plan as above. <Antonio Alcantar - Last Filed: 11/06/18 13:20> (2) UTI (urinary tract infection) Qualifiers: Urinary tract infection type: acute cystitis Hematuria presence: without hematuria Qualified Code(s): N30.00 - Acute cystitis without hematuria (3) Cellulitis Qualifiers: Site of cellulitis: extremity Site of cellulitis of extremity: upper extremity Laterality: right Qualified Code(s): L03.113 - Cellulitis of right upper limb (5) Rotator cuff arthropathy Qualifiers: Laterality: right Qualified Code(s): M75.101 - Unspecified rotator cuff tear or rupture of right shoulder, not specified as traumatic; M12.811 - Other specific arthropathies, not elsewhere classified, right shoulder (6) Atrial fibrillation Qualifiers: Atrial fibrillation type: chronic Qualified Code(s): I48.2 - Chronic atrial fibrillation <Onel Mcadams - Last Filed: 11/06/18 18:25> (1) UTI (urinary tract infection) Qualifiers: Urinary tract infection type: acute cystitis Hematuria presence: without hematuria Qualified Code(s): N30.00 - Acute cystitis without hematuria (4) Atrial fibrillation Qualifiers: Atrial fibrillation type: chronic Qualified Code(s): I48.2 - Chronic atrial fibrillation (6) Hypertension Qualifiers: Hypertension type: essential hypertension Qualified Code(s): I10 - Essential (primary) hypertension (8) CHF (congestive heart failure) Qualifiers: Heart failure type: diastolic Heart failure chronicity: chronic Qualified Code(s): I50.32 - Chronic diastolic (congestive) heart failure
[2018-11-06] MEDS: Lactobacillus 1 EACH CAP.SPRINK PO SCH (10:05)
[2018-11-06] MEDS: Furosemide 20 MG TABLET PO SCH (10:06)
[2018-11-06] MEDS: levoFLOXacin 750 MG TABLET PO SCH (10:06)
[2018-11-06] MEDS: Silvasorb 44.4 ML TUBE TP SCH (10:06)
[2018-11-06] MEDS: Apixaban 5 MG TABLET PO SCH (21:59)
[2018-11-07 04:00] LABS: Basophils % 0.3 %; Eosinophils # 0.2 K/mcL (0.0-0.6); Eosinophils % 1.9 %; Hematocrit 34.3 % (35.3-44.9); Hemoglobin 11.4 g/dL (11.5-15.4); Immature Granulocytes % 1.2 % (0-4); Lymphocytes # 2.2 K/mcL (0.6-4.6); Lymphocytes % 20.4 %; Mean Corpuscular HGB Conc 33.2 g/dL (31.6-35.5); Mean Corpuscular Hemoglobin 32.2 pg (28.0-33.3); Mean Corpuscular Volume 96.9 fL (83.0-100.0); Mean Platelet Volume 9.2 fL (9.4-12.4); Monocytes # 0.9 K/mcL (0.0-1.3); Monocytes % 8.7 %; Platelet Count 211 K/mcL (140-400); Red Blood Count 3.54 M/mcL (3.82-4.97); Segmented Neutrophils % 67.5 %
[2018-11-07 04:03] LABS: BUN/Creatinine Ratio 32 (6-26); Blood Urea Nitrogen 15 mg/dL (8-23); Calcium 8.3 mg/dL (8.6-10.3); Carbon Dioxide 26 mEq/L (23-29); Chloride 99 mEq/L (98-107); Glucose 102 mg/dL (70-105); Osmolality,Calculated 273 (280-300); Potassium 3.8 mEq/L (3.5-5.1); Sodium 131 mEq/L (136-145); eGFR For Non-African Americans > 60 (> 60)
[2018-11-07 04:06] LABS: Neutrophils # 7.2 K/mcL (1.6-8.9)
[2018-11-07 04:07] LABS: INR 2.1; Prothrombin Time 23.5 Seconds (9.4-12.1)
[2018-11-07] MEDS: OXYCODONE Oral CONC 10 MG/0.5 ML ORAL.SYG SL PRN ×2 (05:38→09:26)
[2018-11-07 06:35] LABS: Platelet Estimate Normal (Normal)
[2018-11-07] MEDS: levoFLOXacin 750 MG TABLET PO SCH (07:39)
[2018-11-07] MEDS: Apixaban 5 MG TABLET PO SCH (07:39)
[2018-11-07] MEDS: Furosemide 20 MG TABLET PO SCH (07:39)
[2018-11-07] MEDS: Lactobacillus 1 EACH CAP.SPRINK PO SCH (07:39)
--- NOTE | 2018-11-07 08:55 | Discharge Summary ---
- NOTES TO OUTPATIENT PROVIDER Notes to Outpatient Provider: Follow-up from patient's INR as outpatient, her Coumadin was switched to Eliquis as patient had an INR over 14 on admission with a soft tissue bleed in the right upper extremity. Patient required continued wound care for the right upper extremity and evaluation to monitor the swelling. Past echo did not reveal significant mitral stenosis as a reason for her A. fib, therefore patient was prescribed Eliquis for nonvalvular A. fib. Her Has- Bled score is 4, but ChadsVasc is 7 thus warranting anticoagulation therapy. Orders not resulted at time of discharge: Pending orders 11/03/18 02:28 Culture,Blood [BC] Stat 11/08/18 04:00 BMP [Basic Metabolic Panel] AM 0400 CBC [Complete Blood Count] [HEME] AM 0400 PT/INR [Prothrombin Time INR] [COAG] AM 0400 11/09/18 04:00 BMP [Basic Metabolic Panel] AM 0400 CBC [Complete Blood Count] [HEME] AM 0400 PT/INR [Prothrombin Time INR] [COAG] AM 0400 Date of Encounter: 11/07/18 Time of Encounter: 08:55 - Discharge Diagnosis (1) Supratherapeutic INR Priority: Primary Status: Acute (2) UTI (urinary tract infection) Priority: Primary Status: Acute Qualifiers: Urinary tract infection type: acute cystitis Hematuria presence: without h ematuria Qualified Code(s): N30.00 - Acute cystitis without hematuria (3) Chronic hepatitis Priority: Secondary Status: Chronic (4) Rotator cuff arthropathy Priority: Secondary Status: Acute Qualifiers: Laterality: right Qualified Code(s): M75.101 - Unspecified rotator cuff tear or rupture of right shoulder, not specified as traumatic; M12.811 - Other specific arthropathies, not elsewhere classified, right shoulder (5) Atrial fibrillation Priority: Secondary Status: Chronic Qualifiers: Atrial fibrillation type: chronic Qualified Code(s): I48.2 - Chronic atrial fibrillation Hospital course: Ms. Serra is a 83 year old female who presented to [facility] for bruising and blisters on her right arm. Patient suffered a fall on October 16 when she landed on her left shoulder. She was followed by orthopedic surgery who did recommend a right shoulder replacement however her cardiac history, including A. fib, precluded her from this high-risk procedure. Physical therapy was started. Since starting physical therapy patient has noted increased swelling through her entire right arm with bruises and blisters. Patient presented to the emergency department where an INR 13.[address] scan was performed which showed extensive subcutaneous fat stranding and skin thickening compatible with sterile edema which is suspected to be a soft tissue bleed. 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 Patient was transferred to [facility]. She received 15 mg of vitamin K and FFP. Her INR down trended to subtherapeutic levels and she did not experience any further bleeding. Her hemoglobin remained stable and she did not develop any further bleeds. She was in normal sinus rhythm and not in active A. fib during her hospital admission. She did have one episode of chills and slurred speech, however stat head CT was negative for neurological abnormality. Workup found evidence for UTI and she was treated with Levaquin which she will continue for a few more days. Prior to discharge patient's HasBled and ChadsVasc scores were calculated to be 4 and 7 respectively and decision was made to continue anticoagulation for the patient. However due to recent bleed on Coumadin with supratherapeutic INR it was elected to switch patient to Eliquis for her nonvalvular A. fib. The prescription was placed checked by pharmacy and patient was agreeable to the cost of the medication. She was evaluated by physical therapy and recommend discharge to inpatient rehabilitation. Patient in stable condition for discharge. - Time Spent with Patient Total time spent providing and/or coordinating discharge services: - Discharge Medications Prescriptions: New Apixaban [Eliquis] 5 mg PO BID 30 Days #60 tablet levoFLOXacin [Levaquin] 750 mg PO DAILY 5 Days #5 tablet Atorvastatin [Lipitor] 40 mg PO HS tablet Silvasorb 1 appl TP DAILY tube Sennosides [Laxative] 17.2 mg PO DAILY #30 tablet Continue Multivitamin [Multivitamins] 1 each PO DAILY Milk Thistle Seed Extract [Milk Thistle] 200 mg PO DAILY Losartan/Hydrochlorothiazide [Hyzaar 100-12.5 Tablet] 1 each PO DAILY Docosahexanoic Acid/Epa [Fish Oil Concentrate Softgel] 1 each PO DAILY Psyllium Husk [Fiber] 0.52 gm PO BID Oxygen 2 l NS AD PRN PRN Reason: Dyspnea Lactobacillus Acidophilus [Acidophilus Probiotic] 1 mg PO DAILY Estradiol [Estrace] 1 appl TP 2XW HYDROcodone/Acet 10/325 mg [Sunset 10-325 mg] 1 each PO Q6H PRN 3 Days #12 tablet PRN Reason: Mild To Moderate Pain Isosorbide MONOnitrate (24 HR) [Imdur] 30 mg PO DAILY #30 tab.er.24h Aspirin [Lo-Dose Aspirin EC] 81 mg PO DAILY Metoprolol Tartrate [Lopressor] 50 mg PO BID Omeprazole [PriLOSEC] 20 mg PO BID Potassium Chloride [Klor-Con 10] 10 meq PO BID Furosemide [Lasix] 20 mg PO DAILY Oxybutynin Chloride [Ditropan Xl] 10 mg PO DAILY Cholecalciferol (Vitamin D3) [Vitamin D3] 2,000 unit PO DAILY Discontinued Warfarin Sodium 3.5 mg PO 1800 Home Medications: Cholecalciferol (Vitamin D3) [Vitamin D3] 2,000 unit PO DAILY 07/30/15 [History] Oxybutynin Chloride [Ditropan Xl] 10 mg PO DAILY 07/30/15 [History] Docosahexanoic Acid/Epa [Fish Oil Concentrate Softgel] 1 each PO DAILY 08/31/15 [History] Losartan/Hydrochlorothiazide [Hyzaar 100-12.5 Tablet] 1 each PO DAILY 08/31/15 [History] Milk Thistle Seed Extract [Milk Thistle] 200 mg PO DAILY 08/31/15 [History] Multivitamin [Multivitamins] 1 each PO DAILY 08/31/15 [History] Psyllium Husk [Fiber] 0.52 gm PO BID 08/31/15 [History] Oxygen 2 l NS AD PRN 10/25/16 [History] Lactobacillus Acidophilus [Acidophilus Probiotic] 1 mg PO DAILY 12/24/16 [History] Estradiol [Estrace] 1 appl TP 2XW 09/12/17 [History] HYDROcodone/Acet 10/325 mg [Sunset 10-325 mg] 1 each PO Q6H PRN 3 Days #12 tablet 09/17/17 [Rx] Isosorbide MONOnitrate (24 HR) [Imdur] 30 mg PO DAILY #30 tab.er.24h 09/18/17 [Rx] Aspirin [Lo-Dose Aspirin EC] 81 mg PO DAILY 11/03/18 [History] Furosemide [Lasix] 20 mg PO DAILY 11/03/18 [History] Metoprolol Tartrate [Lopressor] 50 mg PO BID 11/03/18 [History] Omeprazole [PriLOSEC] 20 mg PO BID 11/03/18 [History] Potassium Chloride [Klor-Con 10] 10 meq PO BID 11/03/18 [History] Apixaban [Eliquis] 5 mg PO BID 30 Days #60 tablet 11/07/18 [Rx] Atorvastatin [Lipitor] 40 mg PO HS tablet 11/07/18 [Rx] Sennosides [Laxative] 17.2 mg PO DAILY #30 tablet 11/07/18 [Rx] Silvasorb 1 appl TP DAILY tube 11/07/18 [Rx] levoFLOXacin [Levaquin] 750 mg PO DAILY 5 Days #5 tablet 11/07/18 [Rx] Allergies/Adverse Reactions: Allergy/AdvReac Type Severity Reaction Status Date / Time Barbiturates Allergy Rash Verified 11/03/18 19:17 Date of admission: 11/05/18 15:26 Primary care physician: PCP NONE Consults: 11/02/18 23:23 Consult to Nutrition [CONS] Stat Comment: WEIGHT LOSS Consulting Provider: NUTRITION Reason for Dietary Consult: Other Consult to Appliance Adjuster [CONS] Routine Reason for SW Consult: DC NEEDS 11/03/18 01:23 Consult to Orthopedic Surgery [CONS] Routine Consulting Provider: Lalito Martin Reason for Consult: Cellulitis, Right upper extremity swelling, possible compartment syndrome. Supratherapeuic INR Call Completed: No 11/03/18 01:33 Consult to Infectious Diseases [CONS] Routine Consulting Provider: Infectious Disease Karolina Reason for Consult: Cellulitis right upper extremity Call Completed: No 11/04/18 11:30 Consult to Wound Care [CONS] Routine Reason for Consult: right arm wounds, open blisters Call Completed: No 11/05/18 11:46 Consult to Occupational Therapy [CONS] Routine Comment: Evaluate, develop and implement POC Reason for Consult: evaluation for placement needs Does patient have active BEDREST order?: No Is patient medically & hemodynamically stable?: Yes Patient assessed for mobility or mobilized this visit?: No 11/05/18 11:47 Consult to Physical Therapy [CONS] Routine Comment: Evaluate, develop and implement POC Reason for Consult: evaluate for placement needs Does patient have active BEDREST order?: No Is patient medically & hemodynamically stable?: Yes Patient assessed for mobility or mobilized this visit?: No Discharging clinician: Antonio Alcantar Anticipated date of discharge: 11/07/18 - Constitutional Vitals: Temp Pulse Resp BP Pulse Ox 97.8 F 85 16 160/79 97 11/07/18 07:49 11/07/18 07:49 11/07/18 07:49 11/07/18 07:49 11/07/18 07:49 General appearance: Present: cooperative, mild distress, A&O X 3, pleasant, answers questions appropriately. Absent: disheveled Exam: Constitutional: Resting comfortably in bed, no acute distress HEENT: Head is atraumatic and normocephalic. Pupils equal and round. Extraocular muscles intact. No facial asymmetry, no dysarthria. No oral pharyngeal lesions. External ears and nares patent. Neck: No JVD, trachea midline Chest: Symmetrical chest rise, no tenderness to palpation cardioascular: 2/6 systolic murmur present. Regular rate and rhythm. Respiratory: Clear to auscultation bilaterally, no rales rhonchi or wheezing Abdomen: Soft, nontender, no guarding rigidity Extremities: The right upper extremity edema has slightly decreased and there is more wrinkling present at the hand indicative of improvement of patient's edema. The left upper extremity has multiple ecchymosis. Both upper extremity's are neurovascularly intact. Neurological: Alert and oriented 3, no obvious focal neurological deficits Psych: Appropriate mood and affect. - Patient Status Disposition: Transfer Inpatient Rehab Fac Condition: Fair Overall status at discharge: patient is progressing back to baseline - Discharge Instructions Follow Up With: NONE,PCP [Primary Care Provider] - - Diet and Activity Activity: as per physical therapy
--- NOTE | 2018-11-07 08:55 | Physician Discharge Referral ---
ExtendedCare Referral Info Transfer To: [facility] Provider in Charge after Transfer: PCP Institutional Level of Care: Intermediate - Diagnosis (1) Supratherapeutic INR Priority: Primary Status: Acute (2) UTI (urinary tract infection) Priority: Primary Status: Acute (3) Cellulitis Priority: Secondary Status: Ruled-out (4) Chronic hepatitis Priority: Secondary Status: Chronic (5) Rotator cuff arthropathy Priority: Secondary Status: Acute (6) Atrial fibrillation Priority: Secondary Status: Chronic - Transfer Medications Prescriptions: Apixaban [Eliquis] 5 mg PO BID 30 Days #60 tablet levoFLOXacin [Levaquin] 750 mg PO DAILY 5 Days #5 tablet Sennosides [Laxative] 17.2 mg PO DAILY #30 tablet Home Medications: Cholecalciferol (Vitamin D3) [Vitamin D3] 2,000 unit PO DAILY 07/30/15 [History] Oxybutynin Chloride [Ditropan Xl] 10 mg PO DAILY 07/30/15 [History] Docosahexanoic Acid/Epa [Fish Oil Concentrate Softgel] 1 each PO DAILY 08/31/15 [History] Losartan/Hydrochlorothiazide [Hyzaar 100-12.5 Tablet] 1 each PO DAILY 08/31/15 [History] Milk Thistle Seed Extract [Milk Thistle] 200 mg PO DAILY 08/31/15 [History] Multivitamin [Multivitamins] 1 each PO DAILY 08/31/15 [History] Psyllium Husk [Fiber] 0.52 gm PO BID 08/31/15 [History] Oxygen 2 l NS AD PRN 10/25/16 [History] Lactobacillus Acidophilus [Acidophilus Probiotic] 1 mg PO DAILY 12/24/16 [History] Estradiol [Estrace] 1 appl TP 2XW 09/12/17 [History] HYDROcodone/Acet 10/325 mg [Forrest 10-325 mg] 1 each PO Q6H PRN 3 Days #12 tablet 09/17/17 [Rx] Isosorbide MONOnitrate (24 HR) [Imdur] 30 mg PO DAILY #30 tab.er.24h 09/18/17 [Rx] Aspirin [Lo-Dose Aspirin EC] 81 mg PO DAILY 11/03/18 [History] Furosemide [Lasix] 20 mg PO DAILY 11/03/18 [History] Metoprolol Tartrate [Lopressor] 50 mg PO BID 11/03/18 [History] Omeprazole [PriLOSEC] 20 mg PO BID 11/03/18 [History] Potassium Chloride [Klor-Con 10] 10 meq PO BID 11/03/18 [History] Apixaban [Eliquis] 5 mg PO BID 30 Days #60 tablet 11/07/18 [Rx] Atorvastatin [Lipitor] 40 mg PO HS tablet 11/07/18 [Rx] Sennosides [Laxative] 17.2 mg PO DAILY #30 tablet 11/07/18 [Rx] Silvasorb 1 appl TP DAILY tube 11/07/18 [Rx] levoFLOXacin [Levaquin] 750 mg PO DAILY 5 Days #5 tablet 11/07/18 [Rx] Allergies/Adverse Reactions: Allergy/AdvReac Type Severity Reaction Status Date / Time Barbiturates Allergy Rash Verified 11/03/18 19:17 - Respiratory Orders Smoking Cessation: Smoking cessation has been advised. For more information, call the [place] Tobacco Quit Line at 5-964-GZHC-NOW. CERTIFICATION: I certify that the transfer of the above named patient to an Extended Care Facility is necessary for the continuing treatment of the diagnosis listed. The above information is true and accurate reflection of patient's current condition. Confidential - Redisclosure prohibited without a patient's written consent.
[2018-11-07 09:58] VITALS: BP 168/72
[2018-11-07] MEDS: Silvasorb 44.4 ML TUBE TP SCH (11:27)
[2018-11-07 11:37] LABS: Bilirubin,Urine Small (Negative); Blood,Urine Negative (Negative); Clarity,Urine Clear (Clear); Color,Urine Dark Yellow (Yellow); Glucose,Urine (UA) Normal (Normal); Ketones,Urine Negative (Negative); Leukocyte Esterase,Urine Trace (Negative); Nitrite,Urine Negative (Negative); Protein,Urine Negative (Neg-Trace); Specific Gravity,Urine 1.018 (1.010-1.025)
[2018-11-07 11:40] LABS: Bacteria,Urine None Seen per hpf (None-Few); Hyaline Casts,Urine None Seen per lpf (None-Few); RBC,Urine 0-3 per hpf (0-3); Squamous Epithelial Cell,Urine Many per lpf (None-Few)
[2018-11-07] MEDS ORDERED: Sennosides 8.6 MG TABLET PO SCH (21:00)
== END 2018-11-07 13:02 | DRG 948 ==
LOC: 3NENU → SUATTDRO 21:44
PROVIDERS: ADMIT Pediatrics; ATTEND Internal Medicine